=== PATIENT | male | born 1935 | race Caucasian/White ===

== ENCOUNTER 2018-09-05 08:23 | Emergency (ER) | payer OTHER ==
--- NOTE | 2018-09-05 08:35 | PDOC ---
History of Present Illness - General Chief Complaint: Urinary Problem Stated Complaint: URINARY SYMPTOMS Time Seen by Provider: 09/05/18 08:23 History Source: Patient, Care Provider Exam Limitations: No Limitations - History of Present Illness Initial Comments: 09/05/18 08:43 HPI 83 YOM with h/o CAD s/p CABG, BPH, Afib and antiphospholipid syndrome on Coumadin, HTN, HLD presenting with urinary sx, subjective chills and rigors, generalized weakness x 2 days. Beginning Monday night, he started to experience shakes and chills, nausea and body aches, at that time also developed dysuria, urgency and increased urinary frequency, where he needs to go to the bathroom every 2 seconds. Yesterday, developed low grade fever of 99. He has been taking ibuprofen 400mg every 4 hours for the past 2 days for pain. Denies chest pain, SOB, palpitation, dizziness, V, D, abdominal pain, leg swelling, rash, No sick contacts or travel. No new changes in medications. No suspicious food intake. No respiratory or GI symptoms. Allergies: NKA Past Medical History: CAD s/p CABG, BPH, Afib and antiphospholipid syndrome on Coumadin, HTN, HLD Social history: Lives with family. No smoking. occ alcohol. No illicit drugs. Surgical history: CABG, kidney tumor removal Meds: lisinopril, flomax, coumadin, statin PMD: Dr [facility], [facility] Review of systems Constitutional: +fever, chills and sweats, +generalized weakness HEENT: no headache or dizziness. No congestion. No sore throat, no difficulty swallowing. CVS: no cp or syncope. No palpitations Resp: no sob. No cough. Gastrointestinal: no abdominal pain, diarrhea or vomiting. +nausea Genitourinary: no hematuria. +urinary urgency, frequency and dysuria. MUSCULOSKELETAL: No joint pain and swelling. No neck or back pain. +myalgias. SKIN: no redness or skin changes, no discharge, no rash. No wounds. Hematologic: no easy bruising/bleeding. NEUROLOGIC: No headache, dizziness, LOC or altered mental status. No weakness, numbness or tingling. Psych: no anxiety or depression Allergic/Immunologic: no allergies All other systems reviewed and negative, or as documented in HPI. Physical exam: General: Well appearing, awake and alert, NAD. HEENT: NCAT, PERRL, EOMI, clear conjunctiva, anicteric, moist mucus membranes, clear oropharynx, no oral lesions.. Neck: neck supple, FROM Resp: CTAB, normal and even respirations, no respiratory distress CVS: irregularly irregular, no murmurs, 2+ peripheral pulses throughout, no peripheral edema Abdomen: soft, NTND, no peritoneal signs. No CVAT. Back: nontender, normal inspection and ROM MSK: no edema, COPELAND x4, ROM intact. No clubbing or cyanosis. normal bulk and tone. Neuro: alert, no focal neuro deficits. Skin: warm and well perfused, cap refill <2 sec, normal color, no rash, ecchymosis or purpura. Past History - Past Medical History Allergies/Adverse Reactions: Allergies Allergy/AdvReac Type Severity Reaction Status Date / Time No Known Allergies Allergy Verified 09/05/18 08:46 Home Medications: Ambulatory Orders Lisinopril [Prinivil] 10 mg PO HS 08/14/12 Simvastatin [Zocor] 40 mg PO HS 08/14/12 Warfarin Sodium [Coumadin] 7 mg PO HS 08/14/12 Cefpodoxime Proxetil [Vantin -] 100 mg PO BID #20 tablet 09/05/18 Tamsulosin HCl 0.4 mg PO DAILY 09/05/18 Anemia: No Asthma: No Cancer: Yes (kidney mass removed) Cardiac Disorders: Yes (CA bypassx4 2003) CVA: No COPD: No CHF: No Dementia: No Diabetes: No GI Disorders: No Disorders: Yes (BPH) HTN: Yes Hypercholesterolemia: Yes Liver Disease: No Seizures: No Thyroid Disease: No - Surgical History Abdominal Surgery: No Appendectomy: No Cardiac Surgery: Yes (CABG *4) Cholecystectomy: No Lung Surgery: No Neurologic Surgery: No Orthopedic Surgery: No - Suicide/Smoking/Psychosocial Hx Smoking Status: No Smoking History: Never smoked Number of Cigarettes Smoked Daily: 0 Hx Alcohol Use: Yes (SOCIALLY) Drug/Substance Use Hx: No Substance Use Type: None Hx Substance Use Treatment: No Heart Score/ECG Review #1 ECG reviewed & interpreted by me at: 08:35 General ECG Interpretation: Normal Rate, Normal Intervals Compared to previous ECG there are: Changes noted 09/05/18 08:44 EKG atrial fibrilliation at 89 bpm, no interval abnormalities, narrow QRS, ST and T wave segments and morphology normal. Nonspecific T wave abnormalities ED Treatment Course - LABORATORY CBC & Chemistry Diagram: 09/05/18 09:05 09/05/18 09:05 Medical Decision Making - Medical Decision Making 09/05/18 08:43 See HPI for details ddx. sepsis, dehydration, UTI, pyelo, pancreatitis, hepatitis, pneumonia, infection, electrolyte/metabolic derangements, bactermia, IRVING, medication side effect, nsaid nephropathy. Vital signs reviewed, +fever rectally at 100.3, Afib, irregular pulse rate from 80-120s, but EKG with Afib at 89 bpm Prior notes reviewed, including admissions, discharges and consultations. laboratory results and imaging reviewed, basic labs and lytes notable for significant leukocytosis of 20K, Cr elevated 1.9 likely from nsaid overuse vs dehydration vs sepsis lactic pending blood and urine cultures pending UA_leuk esterase and WBCs, toya with UTI as source of sepsis CXR_no acute chest pathology Cardiac panel_neg trop EKG atrial fibrilliation at 89 bpm, no interval abnormalities, narrow QRS, ST and T wave segments and morphology normal. Nonspecific T wave abnormalities prior EKG NSR, but pt states he has Afib. 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 - repeat VS improved, fever down - Given IV ceftriaxone x1 dose, - pt clinically feels better and improved, suggested admission for sepsis 2/2 UTI, febrile illness and IRVING - pt adamantly declined. repeat VS with soft BP, HR normal, fever improved; mentating, alert and oriented to person time and place and able to verbalize risks and indications, admission and wish to leave against medical advice. - will give oral abx in line with 3rd gen cephalosporin to cover for systemic infection and UTI as precipitant. no nsaids, to avoid IRVING. The patient has requested to leave the ED against medical advice. 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 The patient is responding and asking questions appropriately. The patient is oriented to person, place and time. The patient is not psychotic, delusional, suicidal, homicidal or hallucinating. The patient demonstrates a normal mental capacity to make decisions regarding their healthcare. The patient is clinically sober and does not appear to be under the influence of any illicit drugs at this time. The patient has been advised of the risks, in layman terms, of leaving AMA which include, but are not limited to cardiac arrest, severe infection/shock, blood stream infection, dehydration, bleeding, liver failure, acute renal failure, myocardial infarction, arrhythmia, stroke, respiratory failure, delay in diagnosis and management, loss of current lifestyle, loss of functional status, multiorgan failure, coma, severe disability and . Alternatives have been offered - the patient remains steadfast in their wish to leave. The patient has been advised that should they change their mind they are welcome to return to this hospital, or any other, at any time. The patient understands that in no way does an AMA discharge mean that I do not want them to have the best medical care available. To this end, I have provided appropriate prescriptions, referrals, and discharge instructions. The patient did sign AMA paperwork. The above discussion was witnessed by another member of staff, JAMIL Odonnell at bedside. Pt will be treated with Cefpodoxime BID x 10 days and close follow up with primary care doctor with reevaluation. Return precautions advised, call 911 immediately if severe life threatening symptoms or concerns.. Pt has verbalized understanding of information provided, questions answered. 09/05/18 08:45 09/05/18 10:43 09/05/18 10:45 09/05/18 10:54 09/05/18 10:56 09/05/18 11:05 09/05/18 11:08 *DC/Admit/Observation/Transfer Diagnosis at time of Disposition: IRVING (acute kidney injury) UTI (urinary tract infection) Qualifiers: Urinary tract infection type: site unspecified Hematuria presence: without hematuria Qualified Code(s): N39.0 - Urinary tract infection, site not specified Sepsis Qualifiers: Sepsis type: sepsis due to unspecified organism Qualified Code(s): A41.9 - Sepsis, unspecified organism Fever Qualifiers: Fever type: unspecified Qualified Code(s): R50.9 - Fever, unspecified - Discharge Dispostion Disposition: AGAINST MEDICAL ADVICE Condition at time of disposition: Stable - Prescriptions Prescriptions: Cefpodoxime Proxetil [Vantin -] 100 mg PO BID #20 tablet - Referrals Referrals: [facility] [Non Staff, Medical] - Mauri Webber MD [Staff Physician] - - Patient Instructions Printed Discharge Instructions: DI for Urinary Tract Infection (UTI), DI for Fever (Symptom) -- Adult, DI for Sepsis -- Adult Additional Instructions: You have requested to leave the ED against medical advice. 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 your blood counts were elevated with elevated white blood cell count of 20,000, you also had a temperature. you were given fluids and IV ceftriaxone and tylenol, with improvement You have been advised of the risks, in layman terms, of leaving Against Medical Advice, which include, but are not limited to cardiac arrest, severe infection/ shock, blood stream infection, dehydration, bleeding, liver failure, myocardial infarction, arrhythmia, stroke, respiratory failure, acute renal failure, delay in diagnosis and management, loss of current lifestyle, loss of functional status, multiorgan failure, coma, severe disability and . Alternatives have been offered - You have been advised that should they change their mind they are welcome to return to this hospital, or any other, at any time. The patient understands that in no way does an AMA discharge mean that I do not want them to have the best medical care available. To this end, I have provided appropriate prescriptions, referrals, and discharge instructions. The patient did sign AMA paperwork. The above discussion was witnessed by another member of staff, JAMIL Odonnell. If you have any worsening of symptoms or any other concerns please return to the ED immediately. Return if worsening symptoms including fevers, headache, vomiting, visual or hearing disturbances, abdominal pain, chest pain, shortness of breath, syncope, dehydration, inability to take things by mouth/vomiting, altered mental status, or worsening concerning symptoms. Please continue taking your home medications as directed. your medications on discharge include oral antibiotics called cefpodoxime twice a day x 10 day course . side effects may include upset stomach, abdominal pain, vomiting, or diarrhea. do not drink alcohol with your medications. Stay well hydrated and rest adequately. an appointment. If you cannot follow-up with your primary care doctor please return to the ED you can take tylenol every 6 hours, 650-975 mg for fever/pain avoid over use of anti inflammatories such as motrin, aleve or advil - this can affect your kidneys. you have some evidence of acute kidney injury from NSAID use. so avoid this please. - Post Discharge Activity
[2018-09-05] MEDS ORDERED: SODIUM CHLORIDE 0.9% 500 ML INFUS.BAG IV ONE ×2 (08:37)
[2018-09-05 08:46] VITALS: BMI 28.0
[2018-09-05] MEDS ORDERED: ACETAMINOPHEN 1000 MG/100 ML VIAL (NON FORMULARY) IVPB ONE (09:28)
[2018-09-05 09:31] LABS: HEMATOCRIT 36.3 % (35.4-49); HEMOGLOBIN 12.3 GM/dl (11.7-16.9); MCH 31.2 pg (25.7-33.7); MCHC 33.8 g/dl (32.0-35.9); MEAN CELL VOLUME 92.2 fl (80-96); MEAN PLT VOLUME 10.1 fl (7.5-11.1); PLATELET COUNT 110 K/MM3 (134-434); RBC 3.94 M/mm3 (4.00-5.60); RDW 13.5 % (11.9-15.9); WHITE BLOOD COUNT 20.4 K/mm3 (4.0-10.8)
[2018-09-05 09:33] LABS: ALBUMIN 3.6 g/dl (3.4-5.0); ALK PHOS 112 U/L (45-117); ANION GAP 8 MMOL/L (8-16); BILIRUBIN,TOTAL 1.9 mg/dl (0.2-1); BLOOD UREA NITROGEN 34 mg/dl (7-18); CHLORIDE 102 mmol/L (98-107); CO2 24 mmol/L (21-32); CREATININE 1.9 mg/dl (0.55-1.3); GLUCOSE,RANDOM 106 mg/dl (74-106); POTASSIUM 4.7 mmol/L (3.5-5.1); SGOT/AST 21 U/L (15-37); SGPT/ALT 23 U/L (13-61); SODIUM 134 mmol/L (136-145); TOT PROT 6.5 g/dl (6.4-8.2)
[2018-09-05] MEDS ORDERED: CEFTRIAXONE 1,000 MG in DEXTROSE 5%-WATER - 50 ML IVPB ONE (09:34)
[2018-09-05] MEDS ORDERED: cefTRIAXone SODIUM 1 GM VIAL ONE (09:37)
[2018-09-05] MEDS ORDERED: ACETAMINOPHEN INJECTION 100 ML IVPB ONE (09:37)
[2018-09-05 09:39] LABS: ACTIVATED PTT 38.9 SECONDS (25.2-36.5)
[2018-09-05 09:43] LABS: INR 2.24 (0.82-1.09); PROTHROMBIN TIME (PATIENT) 24.7 SEC (10.2-13.0)
[2018-09-05 10:46] VITALS: BP 99/57; PULSE 69; TEMP 98.5
[2018-09-05 12:14] LABS: PLATELET ESTIMATE ADEQUATE
--- NOTE | 2018-09-05 12:30 | EKG ---
Test Reason : Blood Pressure : / mmHG Vent. Rate : 089 BPM Atrial Rate : 108 BPM P-R Int : 000 ms QRS Dur : 100 ms QT Int : 352 ms P-R-T Axes : 000 072 -54 degrees QTc Int : 428 ms ATRIAL FIBRILLATION NONSPECIFIC T WAVE ABNORMALITY ABNORMAL ECG NO PREVIOUS ECGS AVAILABLE Confirmed by FELICIA MOYA, KATE ([id number]) on 09/05/2018 12:29:52 PM Referred By: BIENVENIDO LOPEZ Confirmed By:KATE DUARTE MD
[2018-09-05 14:08] LABS: EPITHELIAL CELLS 1+ /hpf
== END 2018-09-05 11:29 | disposition left against medical advice (07) ==
LOC: FER 08:23
PROC: 3E0337Z Introduction of Electrolytic and Water Balance Substance into Peripheral Vein, Percutaneous Approach (ICD-10-PCS; principal; 2018-09-05)
PROC: 3E033NZ Introduction of Analgesics, Hypnotics, Sedatives into Peripheral Vein, Percutaneous Approach (ICD-10-PCS; 2018-09-05)
PROC: 3E03329 Introduction of Other Anti-infective into Peripheral Vein, Percutaneous Approach (ICD-10-PCS; 2018-09-05)
DX: N17.9 Acute kidney failure, unspecified (principal); N39.0 Urinary tract infection, site not specified; A41.9 Sepsis, unspecified organism; R50.9 Fever, unspecified
CPT/HCPCS: 36415; 71045-TC-FY; 80053; 81003; 81015; 83605; 84484; 85025; 85610; 85730; 87040; 87086; 87186; 93005; 96365; 96375; 99283-25; J0131

== ENCOUNTER 2018-09-14 15:10 | Inpatient (IN) | payer OTHER ==
[2018-09-14] MEDS ORDERED: SODIUM CHLORIDE 0.9% 1000 ML INFUS.BAG IV ONE (15:19)
[2018-09-14] MEDS ORDERED: ACETAMINOPHEN 1000 MG/100 ML VIAL (NON FORMULARY) IVPB ONE (15:19)
[2018-09-14] MEDS ORDERED: ACETAMINOPHEN INJECTION 100 ML IVPB ONE (15:40)
[2018-09-14 15:57] LABS: BASO % 0.2 % (0-2.0); EOS % 0.3 % (0-4.5); HEMATOCRIT 34.6 % (35.4-49); HEMOGLOBIN 11.4 GM/dl (11.7-16.9); MCH 30.4 pg (25.7-33.7); MEAN CELL VOLUME 92.1 fl (80-96); MEAN PLT VOLUME 8.6 fl (7.5-11.1); NEUT % 87.5 % (42.8-82.8); PLATELET COUNT 233 K/MM3 (134-434); RBC 3.76 M/mm3 (4.00-5.60); RDW 14.1 % (11.9-15.9); WHITE BLOOD COUNT 13.9 K/mm3 (4.0-10.8)
[2018-09-14 16:12] LABS: ACTIVATED PTT 54.6 SECONDS (25.2-36.5); PROTHROMBIN TIME (PATIENT) 54.4 SEC (10.2-13.0)
[2018-09-14 16:15] LABS: INR 5.01 (0.82-1.09)
[2018-09-14] MEDS ORDERED: ERYTHROMYCIN 0.5% OPHTHALMIC OINTMENT 3.5 GM TUBE OD ONE (16:21)
[2018-09-14 16:33] LABS: ALBUMIN 3.4 g/dl (3.4-5.0); ALK PHOS 204 U/L (45-117); ANION GAP 5 MMOL/L (8-16); BILIRUBIN,TOTAL 0.9 mg/dl (0.2-1); BLOOD UREA NITROGEN 15 mg/dl (7-18); CALCIUM 9.2 mg/dl (8.5-10); CHLORIDE 107 mmol/L (98-107); CO2 24 mmol/L (21-32); GLUCOSE,RANDOM 90 mg/dl (74-106); POTASSIUM 4.2 mmol/L (3.5-5.1); SGOT/AST 23 U/L (15-37); SGPT/ALT 35 U/L (13-61); SODIUM 136 mmol/L (136-145); TOT PROT 6.8 g/dl (6.4-8.2)
--- NOTE | 2018-09-14 16:58 | PDOC ---
Documentation entered by Kahlil Angel SCRIBE, acting as scribe for Yaya Alonzo MD. Yaya Alonzo MD: This documentation has been prepared by the Jeanne rojas Nirvannie, SCRIBE, under my direction and personally reviewed by me in its entirety. I confirm that the documentation accurately reflects all work, treatment, procedures, and medical decision making performed by me. History of Present Illness - General Chief Complaint: Pain, Acute Stated Complaint: ABD PAIN History Source: Patient Exam Limitations: No Limitations - History of Present Illness Initial Comments: 09/14/18 16:45 CC: Fever, chills HPI: The patient is a 83 year old male, with a significant past medical history of CAD s/p CABG, BPH, Afib and antiphospholipid syndrome on Coumadin, HTN, HLD, who presents to the emergency department with, fevers (Tmax 102.9F), chills, and band-like periumbilical abdominal pain with left CVA pain. As per patient, he experienced similar symptoms approximately 10 days ago (09/05) at which time he was evaluated in the ER but, signed out AMA on PO Cefpodoxime BID x 10 days after one dosage of IV antibiotics and IV fluids secondary to prior obligations. He notes his symptoms began to subside (last dosage of antibiotics today) but, his symptoms returned once again, prompting his arrival to the ED. He denies He denies any recent headache or dizziness. He denies any recent nausea, vomit, diarrhea or constipation. He denies any recent chest pain or shortness of breath. He denies any recent hematuria. Allergies: NKDA Past surgical history: CABG Social History: Former smoker. Social alcohol usage. Primary Care Physician: Dr. Raudel [facility] Past History - Past Medical History Allergies/Adverse Reactions: Allergies Allergy/AdvReac Type Severity Reaction Status Date / Time No Known Allergies Allergy Verified 09/14/18 15:11 Home Medications: Ambulatory Orders Lisinopril [Prinivil] 10 mg PO HS 08/14/12 Simvastatin [Zocor] 40 mg PO HS 08/14/12 Warfarin Sodium [Coumadin] 7 mg PO HS 08/14/12 Cefpodoxime Proxetil [Vantin -] 100 mg PO BID #20 tablet 09/05/18 Tamsulosin HCl 0.4 mg PO DAILY 09/05/18 Anemia: No Asthma: No Cancer: Yes (kidney mass removed) Cardiac Disorders: Yes (CA bypassx4 2003) CVA: No COPD: No CHF: No Dementia: No Diabetes: No GI Disorders: No Disorders: Yes (BPH) HTN: Yes Hypercholesterolemia: Yes Liver Disease: No Seizures: No Thyroid Disease: No - Surgical History Abdominal Surgery: No Appendectomy: No Cardiac Surgery: Yes (CABG *4) Cholecystectomy: No Lung Surgery: No Neurologic Surgery: No Orthopedic Surgery: No - Suicide/Smoking/Psychosocial Hx Smoking Status: No Smoking History: Never smoked Have you smoked in the past 12 months: No Number of Cigarettes Smoked Daily: 0 If you are a former smoker, when did you quit?: 2002 Hx Alcohol Use: Yes (SOCIALLY) Drug/Substance Use Hx: No Substance Use Type: None Hx Substance Use Treatment: No Review of Systems - Review of Systems Able to Perform ROS?: Yes Comments:: 09/14/18 16:45 ROS: A complete review of 10 out of 10 review of systems is taken and is negative apart from what is previously mentioned below and in the HPI. *Physical Exam - Vital Signs Last Vital Signs Temp Pulse Resp BP Pulse Ox 101.5 F H 90 18 153/85 94 L 09/14/18 15:10 09/14/18 15:10 09/14/18 15:10 09/14/18 15:10 09/14/18 15:10 - Physical Exam Comments: 09/14/18 16:45 Exam: Vitals: Triage Vital signs reviewed General Appearance: no acute distress, well nourished well developed, Head: Atraumatic, normocephalic Nose: No nasal congestion Neck: Supple;No Nuchal rigidity Chest Wall: Nontender Cardiac: Regular rate and rhythm, no murmurs, no rubs, no gallops, Lungs: Clear to auscultation bilateral, good air movement bilaterally, Abdomen: +Periumbilical abdominal pain to deep palpation. +L CVA tenderness. Soft, nondistended, normal bowel sounds Rectal: Exam deferred Extremities: Full range of motion to all extremities, no cyanosis, clubbing, or edema Skin: Warm and dry, no rashes or lesions, no petechiae Neuro: AOX3; Cranial Nerves 2-12 grossly intact, Strength intact to all extremities, Sensation intact to all extremities Psych: normal mood, normal affect Heart Score/ECG Review - ECG Impressions Comment:: 09/14/18 18:22 EKG performed at 1549 demonstrates A. fib [address] elevations isolated T- wave inversion in lead 3. Incomplete right bundle-branch block. ED Treatment Course - LABORATORY CBC & Chemistry Diagram: 09/14/18 15:26 09/14/18 15:26 - ADDITIONAL ORDERS Additional order review: Laboratory Results 09/14/18 09/14/18 15:26 15:19 PT with INR 54.4 H INR 5.01 H* D PTT (Actin FS) 54.6 H D Urine Color Yellow Urine Appearance Clear Urine pH 7.0 D Urine Protein Trace Urine Glucose (UA) Negative Urine Ketones Negative Urine Blood Negative Urine Nitrite Negative Urine Bilirubin Negative Urine Urobilinogen 0.2 Ur Leukocyte Esterase Negative 09/14/18 15:26 RBC 3.76 L MCV 92.1 MCHC 33.0 RDW 14.1 MPV 8.6 D Neutrophils % 87.5 H D Lymphocytes % 8.0 D Monocytes % 4.0 Eosinophils % 0.3 D Basophils % 0.2 - RADIOLOGY Radiology Studies Ordered: Category Date Time Status ABDOMEN & PELVIS CT W/O CONTR [CT] Stat CT Scan 09/14/18 16:12 Taken CHEST X-RAY PORTABLE* [RAD] Stat Radiology 09/14/18 15:19 Taken - Medications Given in the ED: ED Medications Discontinued Medications Generic Name Dose Route Start Last Admin Trade Name Freq PRN Reason Stop Dose Admin Acetaminophen 1,000 mg 09/14/18 15:19 09/14/18 15:45 Ofirmev Injection - IVPB 09/14/18 15:20 1,000 mg ONCE ONE Administration Sodium Chloride 1,000 ml 09/14/18 15:19 09/14/18 15:45 Normal Saline - IV 09/14/18 15:20 1,000 ml ONCE ONE Administration Medical Decision Making - Medical Decision Making 09/14/18 16:46 83 year old male, with a significant past medical history of CAD s/p CABG, BPH, Afib and antiphospholipid syndrome on Coumadin, HTN, HLD, who presents to the emergency department with, fevers (Tmax 102.9F), chills, and abdominal pain. Plan is to: Sepsis Protocol: EKG Blood/Urine Cultures UA CBC CMP Cardiac Enzymes Lactic Acid Coags VBG Cardiac monitoring Vitals Tylenol IV Fluids Chest X-ray Reassess 09/14/18 17:17 Chest x-ray with likely early right-sided pneumonia Given recently failed outpatient anabiotic's we'll admit for IV antibiotics further management and further evaluation of fever. *DC/Admit/Observation/Transfer Diagnosis at time of Disposition: Pneumonia Qualifiers: Pneumonia type: due to unspecified organism Laterality: right Lung location: lower lobe of lung Qualified Code(s): J18.1 - Lobar pneumonia, unspecified organism - Discharge Dispostion Condition at time of disposition: Stable Decision to Admit order: Yes - Referrals - Patient Instructions - Post Discharge Activity
[2018-09-14] MEDS ORDERED: PIPERACILLIN/TAZOB 3.375 GM 3.375 GM in DEXTROSE 5%-WATER - 50 ML IVPB ONE (17:12)
[2018-09-14] MEDS ORDERED: PIPERACILLIN/TAZOBACTAM 3.375 GM VIAL IVPB ONE (17:14)
[2018-09-14 17:56] LABS: VENOUS PC02 34.2 mmHg (41-51); VENOUS PH 7.46 (7.31-7.41); VENOUS PO2 70.5 mmHg (30-40)
[2018-09-14 18:32] VITALS: BMI 27.3
--- NOTE | 2018-09-14 21:48 | HP ---
CHIEF COMPLAINT: chills, fever, periumbilical pain PCP: Dr. Raudel Slade HISTORY OF PRESENT ILLNESS: 83 year old male who completed PO Cefpodoxime BID x 10 days 2 days ago for UTI, returned from [place] from conference 2 days ago, c/o 1 day of fevers, chills, and periumbilical pain. Patient denied any nausea, vomiting, recent sick contacts. ER course was notable for: (1) zosyn (2) abdomen/pelvis ct (3) cxr Recent Travel: [place] last week PAST MEDICAL HISTORY: CAD s/p CABG, BPH, Afib and antiphospholipid syndrome on Coumadin, HTN, HLD PAST SURGICAL HISTORY: CABG Social History: Smoking: Former smoker- quit 2003 Alcohol: social Drugs: no Family History: no Allergies No Known Allergies Allergy (Verified 09/14/18 15:11) HOME MEDICATIONS: Home Medications Medication Instructions Recorded Lisinopril [Prinivil] 10 mg PO HS 08/14/12 Simvastatin [Zocor] 40 mg PO HS 08/14/12 Warfarin Sodium [Coumadin] 7 mg PO HS 08/14/12 Cefpodoxime Proxetil [Vantin -] 100 mg PO BID #20 tablet 09/05/18 Tamsulosin HCl 0.4 mg PO DAILY 09/05/18 REVIEW OF SYSTEMS CONSTITUTIONAL: Absent: diaphoresis, generalized weakness, malaise, loss of appetite, weight change present- fever, chills, HEENT: Absent: rhinorrhea, nasal congestion, throat pain, throat swelling, difficulty swallowing, mouth swelling, ear pain, eye pain, visual changes CARDIOVASCULAR: Absent: chest pain, syncope, palpitations, irregular heart rate, lightheadedness , peripheral edema RESPIRATORY: Absent: cough, shortness of breath, dyspnea with exertion, orthopnea, wheezing, stridor, hemoptysis GASTROINTESTINAL: Absent: abdominal distension, nausea, vomiting, diarrhea, constipation, melena , hematochezia present- abdominal pain GENITOURINARY: Absent: dysuria, frequency, urgency, hesitancy, hematuria, flank pain, genital pain MUSCULOSKELETAL: Absent: myalgia, arthralgia, joint swelling, back pain, neck pain SKIN: Absent: rash, itching, pallor HEMATOLOGIC/IMMUNOLOGIC: Absent: easy bleeding, easy bruising, lymphadenopathy, frequent infections ENDOCRINE: Absent: unexplained weight gain, unexplained weight loss, heat intolerance, cold intolerance NEUROLOGIC: Absent: headache, focal weakness or paresthesias, dizziness, unsteady gait, seizure, mental status changes, bladder or bowel incontinence PSYCHIATRIC: Absent: anxiety, depression, suicidal or homicidal ideation, hallucinations. PHYSICAL EXAMINATION Vital Signs - 24 hr 09/14/18 09/14/18 09/14/18 15:10 15:19 16:43 Temperature 101.5 F H 99.3 F Pulse Rate 90 Pulse Rate [ 77 Apical] Respiratory 18 19 Rate Blood Pressure 153/85 Blood Pressure 127/53 L [Right Arm] O2 Sat by Pulse 94 L 94 L 96 Oximetry (%) 09/14/18 09/14/18 17:13 18:15 Temperature 98.7 F Pulse Rate 67 Pulse Rate [ 78 Apical] Respiratory 18 18 Rate Blood Pressure 129/69 Blood Pressure 118/70 [Right Arm] O2 Sat by Pulse 98 Oximetry (%) GENERAL: Awake, alert, and fully oriented, in no acute distress. HEAD: Normal with no signs of trauma. EYES: Pupils equal, round and reactive to light, extraocular movements intact, sclera anicteric, conjunctiva clear. No lid lag. EARS, NOSE, THROAT: Ears normal, nares patent, oropharynx clear without exudates. Moist mucous membranes. NECK: Normal range of motion, supple without lymphadenopathy, JVD, or masses. LUNGS: Breath sounds equal, clear to auscultation bilaterally. No wheezes, and no crackles. No accessory muscle use. HEART: Regular rate and rhythm, normal S1 and S2 without murmur, rub or gallop. ABDOMEN: Soft, nontender, not distended, normoactive bowel sounds, no guarding, no rebound, no masses. No hepatomegaly or splenomegaly. MUSCULOSKELETAL: Normal range of motion at all joints. No bony deformities or tenderness. No CVA tenderness. UPPER EXTREMITIES: 2+ pulses, warm, well-perfused. No cyanosis. No clubbing. No peripheral edema. LOWER EXTREMITIES: 2+ pulses, warm, well-perfused. No calf tenderness. No peripheral edema. NEUROLOGICAL: Cranial nerves II-XII intact. Normal speech. Normal gait. PSYCHIATRIC: Cooperative. Good eye contact. Appropriate mood and affect. SKIN: Warm, dry, normal turgor, no rashes or lesions noted, normal capillary refill. Laboratory Results - last 24 hr 04/09/14/18 09/14/18 15:19 15:19 15:26 WBC 13.9 H RBC 3.76 L Hgb 11.4 L Hct 34.6 L MCV 92.1 MCH 30.4 MCHC 33.0 RDW 14.1 Plt Count 233 D MPV 8.6 D Absolute Neuts (auto) 12.2 Neutrophils % 87.5 H D Lymphocytes % 8.0 D Monocytes % 4.0 Eosinophils % 0.3 D Basophils % 0.2 PT with INR INR PTT (Actin FS) VBG pH POC VBG pCO2 POC VBG pO2 VBG HCO3 VBG O2 Sat (Isabell) VBG Base Excess Sodium Potassium Chloride Carbon Dioxide Anion Gap BUN Creatinine Creat Clearance w eGFR Random Glucose Lactic Acid Calcium Total Bilirubin AST ALT Alkaline Phosphatase Troponin I 0.03 Total Protein Albumin Urine Color Yellow Urine Appearance Clear Urine pH 7.0 D Urine Protein Trace Urine Glucose (UA) Negative Urine Ketones Negative Urine Blood Negative Urine Nitrite Negative Urine Bilirubin Negative Urine Urobilinogen 0.2 Ur Leukocyte Esterase Negative Influenza A (Rapid) Influenza B (Rapid) 09/14/18 09/14/18 09/14/18 15:26 15:26 15:26 WBC RBC Hgb Hct MCV MCH MCHC RDW Plt Count MPV Absolute Neuts (auto) Neutrophils % Lymphocytes % Monocytes % Eosinophils % Basophils % PT with INR 54.4 H INR 5.01 H* D PTT (Actin FS) 54.6 H D VBG pH 7.46 H POC VBG pCO2 34.2 L POC VBG pO2 70.5 H VBG HCO3 23.8 VBG O2 Sat (Isabell) 95.2 H VBG Base Excess 0.7 Sodium 136 Potassium 4.2 Chloride 107 Carbon Dioxide 24 Anion Gap 5 L BUN 15 Creatinine 1.0 Creat Clearance w eGFR 71.36 Random Glucose 90 Lactic Acid Calcium 9.2 Total Bilirubin 0.9 AST 23 ALT 35 Alkaline Phosphatase 204 H D Troponin I Total Protein 6.8 Albumin 3.4 Urine Color Urine Appearance Urine pH Urine Protein Urine Glucose (UA) Urine Ketones Urine Blood Urine Nitrite Urine Bilirubin Urine Urobilinogen Ur Leukocyte Esterase Influenza A (Rapid) Influenza B (Rapid) 09/14/18 09/14/18 15:26 16:47 WBC RBC Hgb Hct MCV MCH MCHC RDW Plt Count MPV Absolute Neuts (auto) Neutrophils % Lymphocytes % Monocytes % Eosinophils % Basophils % PT with INR INR PTT (Actin FS) VBG pH POC VBG pCO2 POC VBG pO2 VBG HCO3 VBG O2 Sat (Isabell) VBG Base Excess Sodium Potassium Chloride Carbon Dioxide Anion Gap BUN Creatinine Creat Clearance w eGFR Random Glucose Lactic Acid 1.0 Calcium Total Bilirubin AST ALT Alkaline Phosphatase Troponin I Total Protein Albumin Urine Color Urine Appearance Urine pH Urine Protein Urine Glucose (UA) Urine Ketones Urine Blood Urine Nitrite Urine Bilirubin Urine Urobilinogen Ur Leukocyte Esterase Influenza A (Rapid) Negative Influenza B (Rapid) Negative Imaging studies reviewed ASSESSMENT/PLAN: #SIRS- fever, borderline tachycardia, +leukocytosis, may be secondary to viral infections- viral gastroenteritis given abdominal pain? Was negative for influenza. Do not suspect pneumonia or UTI due to lack of clinical evidence. UA wnl. Lactate wnl. -observation -monitor off antibiotics -tylenol po prn if fever -blood culture- f/u #Afib/antiphospholipid syndrome on coumadin- INR suprathertapeutic, no signs of bleed -monitor -hold coumadin for now -repeat INR in am #HTN -controlled -lisinopril 10mg po home dose #BPH -tamsulosin #LEft kidney upper pole cyst - pt says he follows up with urologist -renal u/s #DVT ppx -on coumadin Visit type - Emergency Visit Emergency Visit: Yes ED Registration Date: 09/14/18 Care time: The patient presented to the Emergency Department on the above date and was hospitalized for further evaluation of their emergent condition. - New Patient This patient is new to me today: Yes Date on this admission: 09/15/18 - Critical Care Critical Care patient: No
[2018-09-14] MEDS ORDERED: WARFARIN SODIUM 7 MG PO SCH (22:00)
[2018-09-14] MEDS: HEPARIN NA (PORCINE) 5,000 UNITS/ML 1ML VIAL SQ SCH (22:21)
[2018-09-14] MEDS: ATORVASTATIN CA 20 MG TABLET (FP) PO SCH (22:21)
[2018-09-14] MEDS: LISINOPRIL 10 MG TABLET (FP) PO SCH (22:21)
[2018-09-15] MEDS: ACETAMINOPHEN 325 MG TABLET (FP) PO PRN ×3 (01:29→18:07)
[2018-09-15 08:26] LABS: HEMATOCRIT 33.5 % (35.4-49); HEMOGLOBIN 11.2 GM/dl (11.7-16.9); MCH 30.7 pg (25.7-33.7); MCHC 33.5 g/dl (32.0-35.9); MEAN CELL VOLUME 91.6 fl (80-96); MEAN PLT VOLUME 8.8 fl (7.5-11.1); PLATELET COUNT 203 K/MM3 (134-434); RBC 3.65 M/mm3 (4.00-5.60); WHITE BLOOD COUNT 15.2 K/mm3 (4.0-10.8)
[2018-09-15 08:49] LABS: ANION GAP 6 MMOL/L (8-16); BLOOD UREA NITROGEN 14 mg/dl (7-18); CALCIUM 8.9 mg/dl (8.5-10); CHLORIDE 106 mmol/L (98-107); CO2 25 mmol/L (21-32); GLUCOSE,RANDOM 88 mg/dl (74-106); POTASSIUM 4.3 mmol/L (3.5-5.1); SODIUM 137 mmol/L (136-145)
[2018-09-15 08:53] LABS: PROTHROMBIN TIME (PATIENT) 52.6 SEC (10.2-13.0)
[2018-09-15 09:01] LABS: INR 4.84 (0.82-1.09)
[2018-09-15] MEDS: TAMSULOSIN HCL 0.4 MG CAP PO SCH (09:28)
--- NOTE | 2018-09-15 11:51 | PN ---
Physical Exam: SUBJECTIVE: Patient seen and examined, pt reports feeling weak, lower abd pain has gone down to 2/10. tolerating breakfast, when having BM, more gas, small amount of stool, denies n/v, WBC this morning 15.2, afebrile INR this morning supratherapuetic 4.8 H&P reviewed, completed coarse of oral abt, OBJECTIVE: Vital Signs Period Temp Pulse Resp BP Sys/Bragg Pulse Ox Last 24 Hr 98.6 F-101.5 F 43-90 18-19 103-153/49-85 93-98 GENERAL: The patient is awake, alert, and fully oriented, in no acute distress. HEAD: Normal with no signs of trauma. EYES: PERRL, extraocular movements intact, sclera anicteric, conjunctiva clear. No ptosis. ENT: Ears normal, nares patent, oropharynx clear without exudates, moist mucous membranes. NECK: Trachea midline, full range of motion, supple. LUNGS: Breath sounds equal, clear to auscultation bilaterally, no wheezes, no crackles, no accessory muscle use. HEART: Regular rate and rhythm, S1, S2 without murmur, rub or gallop. ABDOMEN: Soft, nontender, nondistended, normoactive bowel sounds, no guarding, no rebound, no hepatosplenomegaly, no masses. EXTREMITIES: 2+ pulses, warm, well-perfused, no edema. NEUROLOGICAL: Cranial nerves II through XII grossly intact. Normal speech, gait not observed. PSYCH: Normal mood, normal affect. SKIN: Warm, dry, normal turgor, no rashes or lesions noted Laboratory Results - last 24 hr 09/14/18 09/14/18 09/14/18 15:19 15:19 15:26 WBC 13.9 H RBC 3.76 L Hgb 11.4 L Hct 34.6 L MCV 92.1 MCH 30.4 MCHC 33.0 RDW 14.1 Plt Count 233 D MPV 8.6 D Absolute Neuts (auto) 12.2 Neutrophils % 87.5 H D Lymphocytes % 8.0 D Monocytes % 4.0 Eosinophils % 0.3 D Basophils % 0.2 PT with INR INR PTT (Actin FS) VBG pH POC VBG pCO2 POC VBG pO2 VBG HCO3 VBG O2 Sat (Isabell) VBG Base Excess Sodium Potassium Chloride Carbon Dioxide Anion Gap BUN Creatinine Creat Clearance w eGFR Random Glucose Lactic Acid Calcium Total Bilirubin AST ALT Alkaline Phosphatase Troponin I 0.03 Total Protein Albumin Urine Color Yellow Urine Appearance Clear Urine pH 7.0 D Urine Protein Trace Urine Glucose (UA) Negative Urine Ketones Negative Urine Blood Negative Urine Nitrite Negative Urine Bilirubin Negative Urine Urobilinogen 0.2 Ur Leukocyte Esterase Negative Influenza A (Rapid) Influenza B (Rapid) 09/14/18 09/14/18 09/14/18 15:26 15:26 15:26 WBC RBC Hgb Hct MCV MCH MCHC RDW Plt Count MPV Absolute Neuts (auto) Neutrophils % Lymphocytes % Monocytes % Eosinophils % Basophils % PT with INR 54.4 H INR 5.01 H* D PTT (Actin FS) 54.6 H D VBG pH 7.46 H POC VBG pCO2 34.2 L POC VBG pO2 70.5 H VBG HCO3 23.8 VBG O2 Sat (Isabell) 95.2 H VBG Base Excess 0.7 Sodium 136 Potassium 4.2 Chloride 107 Carbon Dioxide 24 Anion Gap 5 L BUN 15 Creatinine 1.0 Creat Clearance w eGFR 71.36 Random Glucose 90 Lactic Acid Calcium 9.2 Total Bilirubin 0.9 AST 23 ALT 35 Alkaline Phosphatase 204 H D Troponin I Total Protein 6.8 Albumin 3.4 Urine Color Urine Appearance Urine pH Urine Protein Urine Glucose (UA) Urine Ketones Urine Blood Urine Nitrite Urine Bilirubin Urine Urobilinogen Ur Leukocyte Esterase Influenza A (Rapid) Influenza B (Rapid) 09/14/18 09/14/18 09/15/18 15:26 16:47 07:45 WBC 15.2 H RBC 3.65 L Hgb 11.2 L Hct 33.5 L MCV 91.6 MCH 30.7 MCHC 33.5 RDW 14.0 Plt Count 203 MPV 8.8 Absolute Neuts (auto) Neutrophils % Lymphocytes % Monocytes % Eosinophils % Basophils % PT with INR INR PTT (Actin FS) VBG pH POC VBG pCO2 POC VBG pO2 VBG HCO3 VBG O2 Sat (Isabell) VBG Base Excess Sodium Potassium Chloride Carbon Dioxide Anion Gap BUN Creatinine Creat Clearance w eGFR Random Glucose Lactic Acid 1.0 Calcium Total Bilirubin AST ALT Alkaline Phosphatase Troponin I Total Protein Albumin Urine Color Urine Appearance Urine pH Urine Protein Urine Glucose (UA) Urine Ketones Urine Blood Urine Nitrite Urine Bilirubin Urine Urobilinogen Ur Leukocyte Esterase Influenza A (Rapid) Negative Influenza B (Rapid) Negative 09/15/18 09/15/18 07:45 07:45 WBC RBC Hgb Hct MCV MCH MCHC RDW Plt Count MPV Absolute Neuts (auto) Neutrophils % Lymphocytes % Monocytes % Eosinophils % Basophils % PT with INR 52.6 H INR 4.84 H* PTT (Actin FS) VBG pH POC VBG pCO2 POC VBG pO2 VBG HCO3 VBG O2 Sat (Isabell) VBG Base Excess Sodium 137 Potassium 4.3 Chloride 106 Carbon Dioxide 25 Anion Gap 6 L BUN 14 Creatinine 1.0 Creat Clearance w eGFR 71.36 Random Glucose 88 Lactic Acid Calcium 8.9 Total Bilirubin AST ALT Alkaline Phosphatase Troponin I Total Protein Albumin Urine Color Urine Appearance Urine pH Urine Protein Urine Glucose (UA) Urine Ketones Urine Blood Urine Nitrite Urine Bilirubin Urine Urobilinogen Ur Leukocyte Esterase Influenza A (Rapid) Influenza B (Rapid) Active Medications Generic Name Dose Route Start Last Admin Trade Name Freq PRN Reason Stop Dose Admin Acetaminophen 650 mg 09/14/18 22:00 09/15/18 09:28 Tylenol - PO 650 mg Q6H PRN Administration FEVER Atorvastatin Calcium 20 mg 09/14/18 22:00 09/14/18 22:21 Lipitor - PO 20 mg HS IRINEO Administration Lisinopril 10 mg 09/14/18 22:15 09/14/18 22:21 Prinivil PO 10 mg HS IRINEO Administration Tamsulosin HCl 0.4 mg 09/15/18 08:30 09/15/18 09:28 Flomax - PO 0.4 mg DAILY@0830 IRINEO Administration ASSESSMENT/PLAN: Gus Bravo is a 83 yr old M, medical condition BPH, CAD s/p CABG, Afib and antiphospholipid syndrome on Coumadin, HTN, HLD, admitted under observation for #SIRS-viral gastroenteritis? -afebrile this AM -received 1 dose of zosyn -UA wnl, lactate wnl -blood, urine cx pending -CT abd/pelvis-no evidence of hydronephrosis, -renal US- b/l cysts -tylenol po prn if fever -blood culture- f/u #Afib/antiphospholipid syndrome - INR supratherapuetic -hold coumadin -check INR daily #HTN -controlled -lisinopril 10mg po home dose #BPH -tamsulosin #Left kidney upper pole cyst - pt says he follows up with urologist -renal u/s b/l renal cysts #DVT ppx -on coumadin Visit type - Emergency Visit Emergency Visit: Yes ED Registration Date: 09/14/18 Care time: The patient presented to the Emergency Department on the above date and was hospitalized for further evaluation of their emergent condition. - New Patient This patient is new to me today: Yes Date on this admission: 09/15/18 - Critical Care Critical Care patient: No
[2018-09-15] MEDS ORDERED: PIPERACILLIN/TAZOB 3.375 GM 3.375 GM in DEXTROSE 5%-WATER - 50 ML IVPB ONE (13:22)
[2018-09-15] MEDS ORDERED: CIPROFLOXACIN 400 MG/D5W 400 MG/200 ML IVPB IVPB ONE (13:27)
--- NOTE | 2018-09-15 14:28 | EKG ---
Test Reason : Blood Pressure : / mmHG Vent. Rate : 097 BPM Atrial Rate : 101 BPM P-R Int : 000 ms QRS Dur : 092 ms QT Int : 370 ms P-R-T Axes : 000 073 003 degrees QTc Int : 469 ms ATRIAL FIBRILLATION WITH PREMATURE VENTRICULAR OR ABERRANTLY CONDUCTED COMPLEXES NONSPECIFIC T WAVE ABNORMALITY PROLONGED QT ABNORMAL ECG WHEN COMPARED WITH ECG OF 05-SEP-2018 08:36, NO SIGNIFICANT CHANGE WAS FOUND Confirmed by MD SUSAN, JOAO ([id number]) on 09/15/2018 2:27:49 PM Referred By: DR WONG Confirmed By:JOAO DAVIS MD
[2018-09-15] MEDS ORDERED: PIPERACILLIN/TAZOBACTAM 3.375 GM VIAL IVPB ONE (15:34)
[2018-09-15] MEDS ORDERED: DEXTROSE 5%-WATER - 50 ML IVPB ONE (15:34)
[2018-09-15] MEDS: HEPARIN NA (PORCINE) 5,000 UNITS/ML 1ML VIAL SQ SCH (18:50)
[2018-09-15] MEDS ORDERED: MAG HYDROX/AL HYDROX/SIMETH -MYLANTA- ORAL SUSPENSION PO PRN (19:49)
[2018-09-15] MEDS: MAG HYDROX/AL HYDROX/SIMETH 30 ML UNIT-DOSE CUP PO PRN (20:16)
[2018-09-15] MEDS: ATORVASTATIN CA 20 MG TABLET (FP) PO SCH (21:07)
[2018-09-15] MEDS: LISINOPRIL 10 MG TABLET (FP) PO SCH (21:07)
[2018-09-16] MEDS: MAG HYDROX/AL HYDROX/SIMETH 30 ML UNIT-DOSE CUP PO PRN ×2 (06:11→19:36)
[2018-09-16 09:28] LABS: HEMATOCRIT 33.3 % (35.4-49); HEMOGLOBIN 11.1 GM/dl (11.7-16.9); MCH 30.5 pg (25.7-33.7); MCHC 33.3 g/dl (32.0-35.9); MEAN CELL VOLUME 91.5 fl (80-96); MEAN PLT VOLUME 9.2 fl (7.5-11.1); PLATELET COUNT 230 K/MM3 (134-434); RBC 3.64 M/mm3 (4.00-5.60); RDW 13.9 % (11.9-15.9); WHITE BLOOD COUNT 12.5 K/mm3 (4.0-10.8)
[2018-09-16 09:30] LABS: INR 2.82 (0.82-1.09); PROTHROMBIN TIME (PATIENT) 30.9 SEC (10.2-13.0)
--- NOTE | 2018-09-16 09:33 | PN ---
Progress Note, Physician Chief Complaint: Remained afebrile, astill c/o flatulence - Current Medication List Current Medications: Active Medications Acetaminophen (Tylenol -) 650 mg PO Q6H PRN PRN Reason: FEVER Last Admin: 09/15/18 18:07 Dose: 650 mg Al Hydroxide/Mg Hydroxide (Mylanta Oral Suspension -) 30 ml PO Q8H PRN PRN Reason: DYSPEPSIA Last Admin: 09/16/18 06:11 Dose: 30 ml Atorvastatin Calcium (Lipitor -) 20 mg PO HS [facility] Last Admin: 09/15/18 21:07 Dose: 20 mg Lisinopril (Prinivil) 10 mg PO HS [facility] Last Admin: 09/15/18 21:07 Dose: 10 mg Tamsulosin HCl (Flomax -) 0.4 mg PO DAILY@0830 [facility] Last Admin: 09/15/18 09:28 Dose: 0.4 mg - Objective Vital Signs: Vital Signs Temperature 98.9 F 09/16/18 06:00 Pulse Rate 70 09/16/18 06:00 Respiratory Rate 17 09/16/18 06:00 Blood Pressure 128/64 09/16/18 06:00 O2 Sat by Pulse Oximetry (%) 93 L 09/16/18 06:00 GENERAL: Elderly man , afebrile, no acute distress. HEENT: Normal with no signs of trauma, PERRL, extraocular movements intact, sclera anicteric, conjunctiva clear, Ears normal, oropharynx clear without exudates, moist mucous membranes. NECK: Trachea midline, full range of motion, supple. LUNGS: Breath sounds equal, clear to auscultation bilaterally, no wheezes, no crackles, HEART: IRegular rate AFib , S1, S2 without murmur, rub or gallop. ABDOMEN: Soft, mild tender, nondistended, normoactive bowel sounds, no guarding , no rebound. EXTREMITIES: 2+ pulses, warm, well-perfused, no edema. NEUROLOGICAL: Cranial nerves II through XII grossly intact. Normal speech, gait not observed. SKIN: Warm, dry, normal turgor, no rashes or lesions noted Labs: INR, PTT INR 4.84 (0.82-1.09) H* 09/15/18 07:45 Problem List - Problems (1) Fever Assessment/Plan: Resolved possibility of recurrent UTI /Collitis will F/U Stool W/U and final utrine culture ID consulted recommended Zosyn pending culture result Tylenol PRN for fever Code(s): R50.9 - FEVER, UNSPECIFIED Qualifiers: Fever type: unspecified Qualified Code(s): R50.9 - Fever, unspecified (2) HTN (hypertension) Assessment/Plan: Well controlled cont current meds Code(s): I10 - ESSENTIAL (PRIMARY) HYPERTENSION (3) Chronic a-fib Assessment/Plan: rate controlled on Coumadin now INR 2.8 will resume AC with low dose decresed dose coumadin at home patient is on Code(s): I48.2 - CHRONIC ATRIAL FIBRILLATION (4) CAD (coronary artery disease) Assessment/Plan: Stable no active issue Code(s): I25.10 - ATHSCL HEART DISEASE OF [place] CORONARY ARTERY W/O ANG PCTRS (5) Supratherapeutic INR Assessment/Plan: Now INR 2.82 will resume will reduced dose to 4 mg F/U INR in am at home patient is on 7 mg Code(s): R79.1 - ABNORMAL COAGULATION PROFILE
[2018-09-16 09:37] LABS: ALBUMIN 3.1 g/dl (3.4-5.0); ALK PHOS 176 U/L (45-117); ANION GAP 9 MMOL/L (8-16); BILIRUBIN,TOTAL 1.1 mg/dl (0.2-1); BLOOD UREA NITROGEN 11 mg/dl (7-18); CALCIUM 8.8 mg/dl (8.5-10); CHLORIDE 104 mmol/L (98-107); CO2 23 mmol/L (21-32); GLUCOSE,RANDOM 80 mg/dl (74-106); POTASSIUM 4.7 mmol/L (3.5-5.1); SGOT/AST 19 U/L (15-37); SGPT/ALT 26 U/L (13-61); SODIUM 136 mmol/L (136-145); TOT PROT 6.3 g/dl (6.4-8.2)
[2018-09-16] MEDS: ACETAMINOPHEN 325 MG TABLET (FP) PO PRN ×2 (09:45→21:06)
[2018-09-16] MEDS: TAMSULOSIN HCL 0.4 MG CAP PO SCH (09:45)
--- NOTE | 2018-09-16 10:52 | CON.ID ---
Consult Consult Specialty:: infectious diseases Referred by:: hospitalist Reason for Consultation:: leukocytosis,fever - History of Present Illness Chief Complaint: fever,chills History of Present Illness: 83 year old male, with a significant past medical history of CAD s/p CABG, BPH, Afib and antiphospholipid syndrome on Coumadin, HTN, HLD, admitted to the hospital because of fever and chills .patients fever went uptll 102 As per patient, he experienced similar symptoms approximately 10 days ago (09/05 ) at which time he was evaluated in the ER but, signed out AMA on PO Cefpodoxime BID x 10 days after one dosage of IV antibiotics and IV fluids secondary to prior obligations. pateint then developed shivering again and had fevers and came back to ed and was admitted patient was given zosyn patient was c/o of abd pain mainly on the left side and said that he was constipated and had to take dulcolax he also mentions that he probably was retaining urine and since admission has been passing urine nicely - History Source History Provided By: Patient Limitations to Obtaining History: No Limitations - Alcohol/Substance Use Hx Alcohol Use: Yes (SOCIALLY) - Smoking History Smoking history: Never smoked Have you smoked in the past 12 months: No Aproximately how many cigarettes per day: 0 If you are a former smoker, when did you quit?: 2002 Home Medications - Allergies Allergies/Adverse Reactions: Allergies Allergy/AdvReac Type Severity Reaction Status Date / Time No Known Allergies Allergy Verified 09/14/18 15:11 - Home Medications Home Medications: Ambulatory Orders Lisinopril [Prinivil] 10 mg PO HS 08/14/12 Simvastatin [Zocor] 40 mg PO HS 08/14/12 Warfarin Sodium [Coumadin] 7 mg PO HS 08/14/12 Cefpodoxime Proxetil [Vantin -] 100 mg PO BID #20 tablet 09/05/18 Tamsulosin HCl 0.4 mg PO DAILY 09/05/18 Review of Systems - Review of Systems Constitutional: reports: Chills, Fever Cardiovascular: reports: No Symptoms Respiratory: reports: No Symptoms Gastrointestinal: reports: No Symptoms Genitourinary: reports: Other (says retaning urine) Musculoskeletal: reports: No Symptoms Integumentary: reports: No Symptoms Neurological: reports: No Symptoms Endocrine: reports: No Symptoms Hematology/Lymphatic: reports: No Symptoms Psychiatric: reports: No Symptoms Physical Exam Vital Signs: Vital Signs Temperature 98.1 F 09/16/18 09:46 Pulse Rate 88 09/16/18 09:46 Respiratory Rate 18 09/16/18 09:46 Blood Pressure 135/68 09/16/18 09:46 O2 Sat by Pulse Oximetry (%) 99 09/16/18 09:46 Constitutional: Yes: Well Nourished, No Distress, Calm Cardiovascular: Yes: Regular Rate and Rhythm Respiratory: Yes: Regular, CTA Bilaterally Gastrointestinal: Yes: Normal Bowel Sounds, Soft, Tenderness (left lower quadrant) Musculoskeletal: Yes: WNL Extremities: Yes: WNL Neurological: Yes: Alert, Oriented Psychiatric: Yes: Alert, Oriented Labs: CBC, BMP 09/16/18 06:30 09/16/18 06:30 Imaging - Results Chest X-ray: Report Reviewed, Image Reviewed Cat Scan: Report Reviewed, Image Reviewed Ultrasound: Report Reviewed, Image Reviewed Assessment/Plan this patient who comes in with fever and chills and leukocytosis now feelign better repeat infection of the urine noted uti fever chills bph leukocytosis plan will start patient on zosyn will await for the cx reports to be back monitor for fevers rest as per the team
[2018-09-16] MEDS: PIPERACILLIN/TAZOB 3.375 GM 3.375 GM in DEXTROSE 5%-WATER - 50 ML IVPB SCH ×2 (11:56→18:47)
[2018-09-16] MEDS ORDERED: PIPERACILLIN/TAZOBACTAM 3.375 GM VIAL IVPB ONE (18:38)
[2018-09-16] MEDS ORDERED: DEXTROSE 5%-WATER - 50 ML IVPB ONE (18:39)
[2018-09-16] MEDS: LISINOPRIL 10 MG TABLET (FP) PO SCH (21:06)
[2018-09-16] MEDS: ATORVASTATIN CA 20 MG TABLET (FP) PO SCH (21:06)
--- NOTE | 2018-09-16 22:20 | PN ---
Physical Exam: SUBJECTIVE: Patient seen and examined at bedside. Feeling better. OBJECTIVE: Vital Signs Period Temp Pulse Resp BP Sys/Bragg Pulse Ox Last 24 Hr 98.1 F-98.9 F 70-88 17-18 128-142/63-68 93-99 GENERAL: The patient is awake, alert, and fully oriented, in no acute distress. LUNGS: Breath sounds equal, clear to auscultation bilaterally, no wheezes, no crackles, no accessory muscle use. HEART: Regular rate and rhythm, S1, S2 ABDOMEN: Soft, nontender, nondistended EXTREMITIES: 2+ pulses, warm, well-perfused, no edema. NEUROLOGICAL: Cranial nerves II through XII grossly intact. Normal speech, gait not observed. Laboratory Results - last 24 hr 09/16/18 09/16/18 09/16/18 06:30 06:30 06:30 WBC 12.5 H RBC 3.64 L Hgb 11.1 L Hct 33.3 L MCV 91.5 MCH 30.5 MCHC 33.3 RDW 13.9 Plt Count 230 MPV 9.2 Absolute Neuts (auto) 10.3 Neutrophils % No Result Required. Neutrophils % (Manual) 80.0 Band Neutrophils % 2.0 Lymphocytes % No Result Required. Lymphocytes % (Manual) 10.0 D Monocytes % (Manual) 6 Metamyelocytes 2 D PT with INR 30.9 H INR 2.82 H D Sodium 136 Potassium 4.7 Chloride 104 Carbon Dioxide 23 Anion Gap 9 BUN 11 Creatinine 1.0 Creat Clearance w eGFR 71.36 Random Glucose 80 Calcium 8.8 Total Bilirubin 1.1 H AST 19 ALT 26 Alkaline Phosphatase 176 H D Total Protein 6.3 L Albumin 3.1 L Active Medications Generic Name Dose Route Start Last Admin Trade Name Freq PRN Reason Stop Dose Admin Acetaminophen 650 mg 09/14/18 22:00 09/16/18 21:06 Tylenol - PO 650 mg Q6H PRN Administration FEVER Al Hydroxide/Mg Hydroxide 30 ml 09/15/18 20:09 09/16/18 19:36 Mylanta Oral Suspension - PO 30 ml Q8H PRN Administration DYSPEPSIA Atorvastatin Calcium 20 mg 09/14/18 22:00 09/16/18 21:06 Lipitor - PO 20 mg HS IRINEO Administration Piperacillin Sod/Tazobactam 50 mls @ 100 mls/hr 09/16/18 11:00 09/16/18 18:47 Sod 3.375 gm/ Dextrose IVPB 100 mls/hr Q8H-IV IRINEO Administration Protocol Lisinopril 10 mg 09/14/18 22:15 09/16/18 21:06 Prinivil PO 10 mg HS IRINEO Administration Tamsulosin HCl 0.4 mg 09/15/18 08:30 09/16/18 09:45 Flomax - PO 0.4 mg DAILY@0830 IRINEO Administration ASSESSMENT/PLAN 83 year-old male with a PMH significant for HTN, HLD, CAD s/p CABG x 4 (2003), afib on coumadin, BPH, and antiphospholipd syndrome. Was seen on ED on 09/05/18, diagnosed with UTI, and given a prescription for cefpodoxime BID which course the patient completed on 09/12. On 09/13 patient developed fever, chills, and periumbilical pain. Morganella UTI --urine culture on 09/05 grew E.coli sensitive to cefpodoxime --urine culture from 09/14 grew Morganella, resistant to cephalosporins (20- 30k colonies) --was septic on admission, T101.5, WBC 13.9k; fever and leukocytosis now resolved --continue Zosyn (day #2) C. difficile colitis --may be alternative source for sepsis --start PO vanc Hypertension --BP stable --continue lisinopril Hyperlipidemia --continue Lipitor Coronary artery disease --continue statin; not on beta samir or ASA Atrial fibrillation --rate is controlled --INR 5.01 on admission, 2.15 today; resume home dose warfarin 7mg today Antiphospholipid syndrome BPH --continue tamsulosin Left kidney upper pole cyst --patient says he follows with a urologist FEN Fluids: PO intake adequate Electrolytes: replete as indicated Nutrition: low sodium DVT prophylaxis: on coumadin, INR therapeutic Dispo: continues to require inpatient care. Full code. Visit type - Emergency Visit Emergency Visit: Yes ED Registration Date: 09/16/18 Care time: The patient presented to the Emergency Department on the above date and was hospitalized for further evaluation of their emergent condition. - New Patient This patient is new to me today: Yes Date on this admission: 09/17/18 - Critical Care Critical Care patient: No
[2018-09-17] MEDS: PIPERACILLIN/TAZOB 3.375 GM 3.375 GM in DEXTROSE 5%-WATER - 50 ML IVPB SCH ×3 (01:27→18:07)
[2018-09-17 07:37] LABS: BASO % 0.1 % (0-2.0); EOS % 1.7 % (0-4.5); HEMATOCRIT 32.6 % (35.4-49); HEMOGLOBIN 10.7 GM/dl (11.7-16.9); LYMPH % 12.5 % (8-40); MCH 30.2 pg (25.7-33.7); MCHC 32.8 g/dl (32.0-35.9); MEAN PLT VOLUME 8.9 fl (7.5-11.1); MONO % 7.8 % (3.8-10.2); NEUT % 77.9 % (42.8-82.8); PLATELET COUNT 225 K/MM3 (134-434); RBC 3.55 M/mm3 (4.00-5.60); RDW 14.1 % (11.9-15.9); WHITE BLOOD COUNT 9.5 K/mm3 (4.0-10.8)
[2018-09-17 07:42] LABS: INR 2.15 (0.82-1.09); PROTHROMBIN TIME (PATIENT) 23.7 SEC (10.2-13.0)
[2018-09-17 07:58] LABS: ALBUMIN 2.9 g/dl (3.4-5.0); ALK PHOS 161 U/L (45-117); ANION GAP 6 MMOL/L (8-16); BILIRUBIN,TOTAL 0.9 mg/dl (0.2-1); BLOOD UREA NITROGEN 11 mg/dl (7-18); CALCIUM 8.6 mg/dl (8.5-10); CHLORIDE 103 mmol/L (98-107); CO2 27 mmol/L (21-32); CREATININE 1.1 mg/dl (0.55-1.3); GLUCOSE,RANDOM 97 mg/dl (74-106); POTASSIUM 4.5 mmol/L (3.5-5.1); SGOT/AST 18 U/L (15-37); SGPT/ALT 24 U/L (13-61); SODIUM 136 mmol/L (136-145); TOT PROT 6.4 g/dl (6.4-8.2)
[2018-09-17] MEDS ORDERED: PIPERACILLIN/TAZOBACTAM 3.375 GM VIAL IVPB ONE ×2 (09:25→17:57)
[2018-09-17] MEDS ORDERED: DEXTROSE 5%-WATER - 50 ML IVPB ONE ×2 (09:25→17:57)
[2018-09-17] MEDS: TAMSULOSIN HCL 0.4 MG CAP PO SCH (09:32)
--- NOTE | 2018-09-17 10:06 | PN ---
Progress Note, Physician History of Present Illness: stable doing well remained afebrile wbc trended towards normal all stool studies send - Current Medication List Current Medications: Active Medications Acetaminophen (Tylenol -) 650 mg PO Q6H PRN PRN Reason: FEVER Last Admin: 09/16/18 21:06 Dose: 650 mg Al Hydroxide/Mg Hydroxide (Mylanta Oral Suspension -) 30 ml PO Q8H PRN PRN Reason: DYSPEPSIA Last Admin: 09/16/18 19:36 Dose: 30 ml Atorvastatin Calcium (Lipitor -) 20 mg PO HS [facility] Last Admin: 09/16/18 21:06 Dose: 20 mg Piperacillin Sod/Tazobactam (Sod 3.375 gm/ Dextrose) 50 mls @ 100 mls/hr IVPB Q8H-IV IRINEO; Protocol Last Admin: 09/17/18 09:32 Dose: 100 mls/hr Lisinopril (Prinivil) 10 mg PO HS [facility] Last Admin: 09/16/18 21:06 Dose: 10 mg Tamsulosin HCl (Flomax -) 0.4 mg PO DAILY@0830 [facility] Last Admin: 09/17/18 09:32 Dose: 0.4 mg - Objective Vital Signs: Vital Signs Temperature 98.4 F 09/17/18 09:57 Pulse Rate 72 09/17/18 09:57 Respiratory Rate 18 09/17/18 09:57 Blood Pressure 112/56 L 09/17/18 09:57 O2 Sat by Pulse Oximetry (%) 96 09/17/18 09:57 Constitutional: Yes: No Distress, Calm Cardiovascular: Yes: Regular Rate and Rhythm Respiratory: Yes: Regular, CTA Bilaterally Gastrointestinal: Yes: Normal Bowel Sounds, Soft Musculoskeletal: Yes: WNL Extremities: Yes: WNL Neurological: Yes: Alert, Oriented Psychiatric: Yes: Alert, Oriented Labs: CBC, BMP 09/17/18 06:20 09/17/18 06:20 INR, PTT INR 2.15 (0.82-1.09) H 09/17/18 06:20 Assessment/Plan this patient who comes in with fever and chills and leukocytosis now feelign better repeat infection of the urine noted uti fever chills bph leukocytosis plan continue zosyn await for identification and sensitivities of the organism patient failed out patient oral treatment rest as per the team
[2018-09-17] MEDS ORDERED: WARFARIN NA 5 MG TABLET (UD) PO ONE (11:48)
[2018-09-17] MEDS ORDERED: WARFARIN NA 5 MG, WARFARIN NA 2 MG PO ONE (12:00)
[2018-09-17] MEDS ORDERED: WARFARIN NA 5 MG TABLET (UD) ONE (12:34)
[2018-09-17] MEDS ORDERED: WARFARIN NA 2 MG TABLET (UD) ONE (12:35)
[2018-09-17] MEDS ORDERED: REFRIGERATED ANITBIOTICS ONE ×2 (17:58→23:43)
[2018-09-17] MEDS: VANCOMYCIN 250 MG/5 ML ORAL SOLUTION PO SCH (18:07)
[2018-09-17] MEDS: ATORVASTATIN CA 20 MG TABLET (FP) PO SCH (21:32)
[2018-09-17] MEDS: LISINOPRIL 10 MG TABLET (FP) PO SCH (21:32)
[2018-09-18] MEDS: VANCOMYCIN 250 MG/5 ML ORAL SOLUTION PO SCH ×4 (00:01→17:04)
[2018-09-18] MEDS ORDERED: DEXTROSE 5%-WATER - 50 ML IVPB ONE ×3 (01:28→16:55)
[2018-09-18] MEDS ORDERED: PIPERACILLIN/TAZOBACTAM 3.375 GM VIAL IVPB ONE ×4 (01:28→16:59)
[2018-09-18] MEDS: PIPERACILLIN/TAZOB 3.375 GM 3.375 GM in DEXTROSE 5%-WATER - 50 ML IVPB SCH ×3 (01:59→17:04)
[2018-09-18] MEDS ORDERED: REFRIGERATED ANITBIOTICS ONE ×3 (05:55→16:55)
[2018-09-18 07:03] LABS: BASO % 0.4 % (0-2.0); EOS % 2.3 % (0-4.5); HEMATOCRIT 31.3 % (35.4-49); HEMOGLOBIN 10.7 GM/dl (11.7-16.9); LYMPH % 16.2 % (8-40); MCH 31.6 pg (25.7-33.7); MCHC 34.2 g/dl (32.0-35.9); MEAN CELL VOLUME 92.3 fl (80-96); MEAN PLT VOLUME 8.1 fl (7.5-11.1); MONO % 11.6 % (3.8-10.2); NEUT % 69.5 % (42.8-82.8); PLATELET COUNT 241 K/MM3 (134-434); RDW 13.9 % (11.9-15.9)
[2018-09-18 07:16] LABS: ALK PHOS 161 U/L (45-117); GLUCOSE,RANDOM 97 mg/dl (74-106)
[2018-09-18 07:27] LABS: ANION GAP 7 MMOL/L (8-16); BILIRUBIN,TOTAL 0.7 mg/dl (0.2-1); BLOOD UREA NITROGEN 10 mg/dl (7-18); CALCIUM 8.8 mg/dl (8.5-10); CHLORIDE 105 mmol/L (98-107); CO2 24 mmol/L (21-32); CREATININE 1.1 mg/dl (0.55-1.3); POTASSIUM 4.5 mmol/L (3.5-5.1); SGOT/AST 19 U/L (15-37); SGPT/ALT 24 U/L (13-61); SODIUM 136 mmol/L (136-145); TOT PROT 6.4 g/dl (6.4-8.2)
[2018-09-18 07:33] LABS: PROTHROMBIN TIME (PATIENT) 22.1 SEC (10.2-13.0)
--- NOTE | 2018-09-18 07:43 | PN ---
Progress Note, Physician - Current Medication List Current Medications: Active Medications Acetaminophen (Tylenol -) 650 mg PO Q6H PRN PRN Reason: FEVER Last Admin: 09/16/18 21:06 Dose: 650 mg Al Hydroxide/Mg Hydroxide (Mylanta Oral Suspension -) 30 ml PO Q8H PRN PRN Reason: DYSPEPSIA Last Admin: 09/16/18 19:36 Dose: 30 ml Atorvastatin Calcium (Lipitor -) 20 mg PO HS IRINEO Last Admin: 09/17/18 21:32 Dose: 20 mg Piperacillin Sod/Tazobactam (Sod 3.375 gm/ Dextrose) 50 mls @ 100 mls/hr IVPB Q8H-IV IRINEO; Protocol Last Admin: 09/18/18 01:59 Dose: 100 mls/hr Lisinopril (Prinivil) 10 mg PO HS IRINEO Last Admin: 09/17/18 21:32 Dose: 10 mg Tamsulosin HCl (Flomax -) 0.4 mg PO DAILY@0830 IRINEO Last Admin: 09/17/18 09:32 Dose: 0.4 mg Vancomycin HCl (Vancomycin Oral Solution) 125 mg PO Q6HPO IRINEO Last Admin: 09/18/18 06:20 Dose: 125 mg - Objective Vital Signs: Vital Signs Temperature 97.9 F 09/18/18 06:00 Pulse Rate 74 09/18/18 06:00 Respiratory Rate 19 09/18/18 06:00 Blood Pressure 124/69 09/18/18 06:00 O2 Sat by Pulse Oximetry (%) 95 09/18/18 06:17 Labs: CBC, BMP 09/18/18 06:30 09/18/18 06:30 INR, PTT INR 2.00 (0.82-1.09) H 09/18/18 06:30
--- NOTE | 2018-09-18 09:02 | PN ---
Physical Exam: SUBJECTIVE: Patient seen and examined at bedside. Mild abdominal discomfort after eating breakfast. BMs are gaseous, unformed stool. OBJECTIVE: Vital Signs Period Temp Pulse Resp BP Sys/Bragg Pulse Ox Last 24 Hr 97.9 F-98.8 F 60-74 17-19 98-154/56-79 95-98 GENERAL: The patient is awake, alert, and fully oriented, in no acute distress. LUNGS: Breath sounds equal, clear to auscultation bilaterally, no wheezes, no crackles, no accessory muscle use. HEART: Regular rate and rhythm, S1, S2 ABDOMEN: Soft, nontender, nondistended EXTREMITIES: 2+ pulses, warm, well-perfused, no edema. NEUROLOGICAL: Cranial nerves II through XII grossly intact. Normal speech, gait not observed. Laboratory Results - last 24 hr 09/18/18 09/18/18 09/18/18 06:30 06:30 06:30 WBC 8.0 RBC 3.40 L Hgb 10.7 L Hct 31.3 L MCV 92.3 MCH 31.6 MCHC 34.2 RDW 13.9 Plt Count 241 MPV 8.1 Absolute Neuts (auto) 5.6 Neutrophils % 69.5 Lymphocytes % 16.2 D Monocytes % 11.6 H Eosinophils % 2.3 Basophils % 0.4 D PT with INR 22.1 H INR 2.00 H Sodium 136 Potassium 4.5 Chloride 105 Carbon Dioxide 24 Anion Gap 7 L BUN 10 Creatinine 1.1 Creat Clearance w eGFR 63.93 Random Glucose 97 Calcium 8.8 Magnesium 2.0 Total Bilirubin 0.7 AST 19 ALT 24 Alkaline Phosphatase 161 H Total Protein 6.4 Albumin 3.0 L Active Medications Generic Name Dose Route Start Last Admin Trade Name Freq PRN Reason Stop Dose Admin Acetaminophen 650 mg 09/14/18 22:00 09/16/18 21:06 Tylenol - PO 650 mg Q6H PRN Administration FEVER Al Hydroxide/Mg Hydroxide 30 ml 09/15/18 20:09 09/16/18 19:36 Mylanta Oral Suspension - PO 30 ml Q8H PRN Administration DYSPEPSIA Atorvastatin Calcium 20 mg 09/14/18 22:00 09/17/18 21:32 Lipitor - PO 20 mg HS IRINEO Administration Piperacillin Sod/Tazobactam 50 mls @ 100 mls/hr 09/16/18 11:00 09/18/18 01:59 Sod 3.375 gm/ Dextrose IVPB 100 mls/hr Q8H-IV IRINEO Administration Protocol Lisinopril 10 mg 09/14/18 22:15 09/17/18 21:32 Prinivil PO 10 mg HS IRINEO Administration Tamsulosin HCl 0.4 mg 09/15/18 08:30 09/17/18 09:32 Flomax - PO 0.4 mg DAILY@0830 IRINEO Administration Vancomycin HCl 125 mg 09/17/18 18:00 09/18/18 06:20 Vancomycin Oral Solution PO 125 mg Q6HPO IRINEO Administration ASSESSMENT/PLAN 83 year-old male with a PMH significant for HTN, HLD, CAD s/p CABG x 4 (2003), afib on coumadin, BPH, and antiphospholipd syndrome. Was seen on ED on 09/05/18, diagnosed with UTI, and prescribed a course of cefpodoxime which the patient completed on 09/12. On 09/13 patient developed fever, chills, and periumbilical pain. Morganella UTI --urine culture on 09/05 grew E.coli sensitive to cefpodoxime --urine culture from 09/14 grew Morganella, resistant to cephalosporins (20- 30k colonies) --was septic on admission, T101.5, WBC 13.9k; fever and leukocytosis now resolved --continue Zosyn (day #3) C. difficile colitis --may be alternative source for sepsis --symptomatic: abdominal pain, diarrhea --continue PO vanc (day #2) Hypertension --BP stable --continue lisinopril Hyperlipidemia --continue Lipitor Coronary artery disease --continue statin; not on beta samir or ASA Atrial fibrillation --rate is controlled --INR 5.01 on admission, 2.0 today; continue warfarin 7mg Antiphospholipid syndrome BPH --continue tamsulosin Left kidney upper pole cyst --patient follows with a urologist FEN Fluids: PO intake adequate Electrolytes: replete as indicated Nutrition: low sodium DVT prophylaxis: on coumadin, INR therapeutic Dispo: continues to require inpatient care. Full code. Visit type - Emergency Visit Emergency Visit: Yes ED Registration Date: 09/16/18 Care time: The patient presented to the Emergency Department on the above date and was hospitalized for further evaluation of their emergent condition. - New Patient This patient is new to me today: No - Critical Care Critical Care patient: No
[2018-09-18] MEDS: TAMSULOSIN HCL 0.4 MG CAP PO SCH (09:04)
[2018-09-18] MEDS: SODIUM CHLORIDE 1,000 ML IV SCH (12:26)
[2018-09-18] MEDS ORDERED: WARFARIN NA 5 MG TABLET (UD) ONE (16:55)
[2018-09-18] MEDS ORDERED: WARFARIN NA 2 MG TABLET (UD) ONE (16:55)
[2018-09-18] MEDS: WARFARIN NA 5 MG, WARFARIN NA 2 MG PO SCH (17:05)
[2018-09-18] MEDS ORDERED: WARFARIN NA 7.5 MG TABLET (FP) PO SCH (18:00)
[2018-09-18] MEDS ORDERED: PT OWN MED DRAWER 7, Y5N ONE (21:33)
[2018-09-18] MEDS: LISINOPRIL 10 MG TABLET (FP) PO SCH (22:08)
[2018-09-18] MEDS: ATORVASTATIN CA 20 MG TABLET (FP) PO SCH (22:08)
[2018-09-19] MEDS: PIPERACILLIN/TAZOB 3.375 GM 3.375 GM in DEXTROSE 5%-WATER - 50 ML IVPB SCH ×3 (02:21→17:44)
[2018-09-19] MEDS ORDERED: DEXTROSE 5%-WATER - 50 ML IVPB ONE ×3 (03:07→17:29)
[2018-09-19] MEDS ORDERED: PIPERACILLIN/TAZOBACTAM 3.375 GM VIAL IVPB ONE ×3 (03:07→17:29)
[2018-09-19] MEDS ORDERED: REFRIGERATED ANITBIOTICS ONE ×4 (05:32→23:51)
[2018-09-19] MEDS: VANCOMYCIN 250 MG/5 ML ORAL SOLUTION PO SCH ×4 (05:50→17:43)
[2018-09-19 08:21] LABS: BASO % 0.3 % (0-2.0); EOS % 2.4 % (0-4.5); HEMATOCRIT 34.5 % (35.4-49); HEMOGLOBIN 11.3 GM/dl (11.7-16.9); LYMPH % 14.8 % (8-40); MCHC 32.7 g/dl (32.0-35.9); MEAN CELL VOLUME 91.8 fl (80-96); MEAN PLT VOLUME 8.4 fl (7.5-11.1); MONO % 11.5 % (3.8-10.2); PLATELET COUNT 286 K/MM3 (134-434); RBC 3.76 M/mm3 (4.00-5.60); RDW 13.9 % (11.9-15.9)
[2018-09-19 08:28] LABS: ALK PHOS 158 U/L (45-117); ANION GAP 7 MMOL/L (8-16); BILIRUBIN,TOTAL 0.6 mg/dl (0.2-1); BLOOD UREA NITROGEN 10 mg/dl (7-18); CHLORIDE 104 mmol/L (98-107); CO2 25 mmol/L (21-32); CREATININE 1.1 mg/dl (0.55-1.3); GLUCOSE,RANDOM 89 mg/dl (74-106); POTASSIUM 4.6 mmol/L (3.5-5.1); SGOT/AST 19 U/L (15-37); SGPT/ALT 22 U/L (13-61); SODIUM 136 mmol/L (136-145); TOT PROT 6.6 g/dl (6.4-8.2)
[2018-09-19] MEDS: TAMSULOSIN HCL 0.4 MG CAP PO SCH (08:47)
--- NOTE | 2018-09-19 12:01 | PN ---
Progress Note, Physician - Current Medication List Current Medications: Active Medications Acetaminophen (Tylenol -) 650 mg PO Q6H PRN PRN Reason: FEVER Last Admin: 09/16/18 21:06 Dose: 650 mg Al Hydroxide/Mg Hydroxide (Mylanta Oral Suspension -) 30 ml PO Q8H PRN PRN Reason: DYSPEPSIA Last Admin: 09/16/18 19:36 Dose: 30 ml Atorvastatin Calcium (Lipitor -) 20 mg PO HS [facility] Last Admin: 09/18/18 22:08 Dose: 20 mg Piperacillin Sod/Tazobactam (Sod 3.375 gm/ Dextrose) 50 mls @ 100 mls/hr IVPB Q8H-IV IRINEO; Protocol Last Admin: 09/19/18 09:25 Dose: 100 mls/hr Sodium Chloride (Normal Saline -) 1,000 mls @ 75 mls/hr IV ASDIR IRINEO Last Admin: 09/18/18 12:26 Dose: 75 mls/hr Lisinopril (Prinivil) 10 mg PO HS [facility] Last Admin: 09/18/18 22:08 Dose: 10 mg Tamsulosin HCl (Flomax -) 0.4 mg PO DAILY@0830 [facility] Last Admin: 09/19/18 08:47 Dose: 0.4 mg Vancomycin HCl (Vancomycin Oral Solution) 125 mg PO Q6HPO [facility] Last Admin: 09/19/18 11:42 Dose: 125 mg Warfarin Sodium 5 mg/ Warfarin (Sodium 2 mg) 7 mg PO DAILY@1800 [facility] Last Admin: 09/18/18 17:05 Dose: 7 mg - Objective Vital Signs: Vital Signs Temperature 98.8 F 09/19/18 09:00 Pulse Rate 66 09/19/18 09:00 Respiratory Rate 16 09/19/18 09:00 Blood Pressure 118/68 09/19/18 09:00 O2 Sat by Pulse Oximetry (%) 97 09/19/18 08:15 Labs: CBC, BMP 09/19/18 07:00 09/19/18 07:00 INR, PTT INR 2.00 (0.82-1.09) H 09/18/18 06:30
--- NOTE | 2018-09-19 16:59 | PN ---
Physical Exam: SUBJECTIVE: Patient seen and examined. Episode of diarrheal incontinence earlier. Some stools are formed but still some watery diarrhea. Hungry. OBJECTIVE: Vital Signs Period Temp Pulse Resp BP Sys/Bragg Pulse Ox Last 24 Hr 98.1 F-98.8 F 66-85 16-18 105-137/56-72 95-98 GENERAL: The patient is awake, alert, and fully oriented, in no acute distress. LUNGS: Breath sounds equal, clear to auscultation bilaterally, no wheezes, no crackles, no accessory muscle use. HEART: Regular rate and rhythm, S1, S2 ABDOMEN: Soft, nontender, nondistended EXTREMITIES: 2+ pulses, warm, well-perfused, no edema. NEUROLOGICAL: Cranial nerves II through XII grossly intact. Normal speech, gait not observed. Laboratory Results - last 24 hr 09/19/18 09/19/18 07:00 07:00 WBC 7.0 RBC 3.76 L Hgb 11.3 L Hct 34.5 L MCV 91.8 MCH 30.0 MCHC 32.7 RDW 13.9 Plt Count 286 MPV 8.4 Absolute Neuts (auto) 5.0 Neutrophils % 71.0 Lymphocytes % 14.8 Monocytes % 11.5 H Eosinophils % 2.4 Basophils % 0.3 Sodium 136 Potassium 4.6 Chloride 104 Carbon Dioxide 25 Anion Gap 7 L BUN 10 Creatinine 1.1 Creat Clearance w eGFR 63.93 Random Glucose 89 Calcium 9.0 Magnesium 2.0 Total Bilirubin 0.6 AST 19 ALT 22 Alkaline Phosphatase 158 H Total Protein 6.6 Albumin 3.0 L Active Medications Generic Name Dose Route Start Last Admin Trade Name Freq PRN Reason Stop Dose Admin Acetaminophen 650 mg 09/14/18 22:00 09/16/18 21:06 Tylenol - PO 650 mg Q6H PRN Administration FEVER Al Hydroxide/Mg Hydroxide 30 ml 09/15/18 20:09 09/16/18 19:36 Mylanta Oral Suspension - PO 30 ml Q8H PRN Administration DYSPEPSIA Atorvastatin Calcium 20 mg 09/14/18 22:00 09/18/18 22:08 Lipitor - PO 20 mg HS IRINEO Administration Piperacillin Sod/Tazobactam 50 mls @ 100 mls/hr 09/16/18 11:00 09/19/18 09:25 Sod 3.375 gm/ Dextrose IVPB 100 mls/hr Q8H-IV IRINEO Administration Protocol Sodium Chloride 1,000 mls @ 75 mls/hr 09/18/18 12:15 09/18/18 12:26 Normal Saline - IV 75 mls/hr ASDIR IRINEO Administration Lisinopril 10 mg 09/14/18 22:15 09/18/18 22:08 Prinivil PO 10 mg HS IRINEO Administration Tamsulosin HCl 0.4 mg 09/15/18 08:30 09/19/18 08:47 Flomax - PO 0.4 mg DAILY@0830 IRINEO Administration Vancomycin HCl 125 mg 09/17/18 18:00 09/19/18 11:42 Vancomycin Oral Solution PO 125 mg Q6HPO IRINEO Administration Warfarin Sodium 5 mg/ Warfarin 7 mg 09/18/18 18:00 09/18/18 17:05 Sodium 2 mg PO 7 mg DAILY@1800 IRINEO Administration ASSESSMENT/PLAN 83 year-old male with a PMH significant for HTN, HLD, CAD s/p CABG x 4 (2003), afib on coumadin, BPH, and antiphospholipd syndrome. Was seen on ED on 09/05/18, diagnosed with UTI, and prescribed a course of cefpodoxime which the patient completed on 09/12. On 09/13 patient developed fever, chills, and periumbilical pain. Morganella UTI --urine culture on 09/05 grew E.coli sensitive to cefpodoxime, treated for 10 days --urine culture from 09/14 grew Morganella, resistant to cephalosporins (20- 30k colonies) --was septic on admission, T101.5, WBC 13.9k; fever and leukocytosis now resolved --continue Zosyn (day #4), tomorrow last day C. difficile colitis --may be alternative source for sepsis --symptomatic: diarrhea --continue PO vanc (day #3) Hypertension --BP stable --continue lisinopril Hyperlipidemia --continue Lipitor Coronary artery disease --continue statin; not on beta samir or ASA Atrial fibrillation --rate is controlled --INR 5.01 on admission, 2.0 today; continue warfarin 7mg Antiphospholipid syndrome BPH --continue tamsulosin Left kidney upper pole cyst --patient follows with a urologist FEN Fluids: PO intake adequate Electrolytes: replete as indicated Nutrition: low sodium DVT prophylaxis: on coumadin, INR therapeutic Dispo: continues to require inpatient care. Full code. Visit type - Emergency Visit Emergency Visit: Yes ED Registration Date: 09/16/18 Care time: The patient presented to the Emergency Department on the above date and was hospitalized for further evaluation of their emergent condition. - New Patient This patient is new to me today: No - Critical Care Critical Care patient: No
[2018-09-19] MEDS ORDERED: WARFARIN NA 2 MG TABLET (UD) ONE (17:29)
[2018-09-19] MEDS ORDERED: WARFARIN NA 5 MG TABLET (UD) ONE (17:29)
[2018-09-19] MEDS: WARFARIN NA 5 MG, WARFARIN NA 2 MG PO SCH (17:43)
[2018-09-19] MEDS: SODIUM CHLORIDE 1,000 ML IV SCH (17:43)
[2018-09-19] MEDS: ATORVASTATIN CA 20 MG TABLET (FP) PO SCH (21:57)
[2018-09-19] MEDS: LISINOPRIL 10 MG TABLET (FP) PO SCH (21:57)
[2018-09-20] MEDS: VANCOMYCIN 250 MG/5 ML ORAL SOLUTION PO SCH ×4 (00:03→18:30)
[2018-09-20] MEDS ORDERED: DEXTROSE 5%-WATER - 50 ML IVPB ONE ×3 (01:35→16:43)
[2018-09-20] MEDS ORDERED: PIPERACILLIN/TAZOBACTAM 3.375 GM VIAL IVPB ONE ×3 (01:35→16:43)
[2018-09-20] MEDS: PIPERACILLIN/TAZOB 3.375 GM 3.375 GM in DEXTROSE 5%-WATER - 50 ML IVPB SCH ×3 (01:44→17:00)
[2018-09-20] MEDS ORDERED: REFRIGERATED ANITBIOTICS ONE ×3 (06:22→16:43)
[2018-09-20 07:48] LABS: INR 2.61 (0.82-1.09); PROTHROMBIN TIME (PATIENT) 28.7 SEC (10.2-13.0)
[2018-09-20 07:54] LABS: ALK PHOS 149 U/L (45-117); ANION GAP 5 MMOL/L (8-16); BILIRUBIN,TOTAL 0.6 mg/dl (0.2-1); BLOOD UREA NITROGEN 9 mg/dl (7-18); CALCIUM 8.8 mg/dl (8.5-10); CHLORIDE 109 mmol/L (98-107); CO2 23 mmol/L (21-32); CREATININE 1.1 mg/dl (0.55-1.3); GLUCOSE,RANDOM 99 mg/dl (74-106); MAGNESIUM 1.9 mg/dL (1.8-2.4); POTASSIUM 4.4 mmol/L (3.5-5.1); SGOT/AST 20 U/L (15-37); SGPT/ALT 23 U/L (13-61); SODIUM 137 mmol/L (136-145); TOT PROT 6.4 g/dl (6.4-8.2)
[2018-09-20 08:18] LABS: BASO % 0.4 % (0-2.0); EOS % 1.9 % (0-4.5); HEMOGLOBIN 11.2 GM/dl (11.7-16.9); LYMPH % 16.2 % (8-40); MCH 31.1 pg (25.7-33.7); MCHC 33.8 g/dl (32.0-35.9); MEAN CELL VOLUME 91.8 fl (80-96); MEAN PLT VOLUME 8.4 fl (7.5-11.1); MONO % 11.1 % (3.8-10.2); NEUT % 70.4 % (42.8-82.8); PLATELET COUNT 263 K/MM3 (134-434); RDW 13.7 % (11.9-15.9); WHITE BLOOD COUNT 7.1 K/mm3 (4.0-10.8)
--- NOTE | 2018-09-20 08:32 | DS ---
Physical Exam: SUBJECTIVE: Patient seen and examined OBJECTIVE: Vital Signs Period Temp Pulse Resp BP Sys/Bragg Pulse Ox Last 24 Hr 98.4 F-98.8 F 66-77 16-18 105-133/49-76 95-98 PHYSICAL EXAM GENERAL: The patient is awake, alert, and fully oriented, in no acute distress. LUNGS: Breath sounds equal, clear to auscultation bilaterally, no wheezes, no crackles, no accessory muscle use. HEART: Regular rate and rhythm, S1, S2 ABDOMEN: Soft, nontender, nondistended EXTREMITIES: 2+ pulses, warm, well-perfused, no edema. NEUROLOGICAL: Cranial nerves II through XII grossly intact. Normal speech, gait not observed. LABS Laboratory Results - last 24 hr 09/19/18 09/19/18 09/20/18 07:00 07:00 07:00 WBC 7.0 7.1 RBC 3.76 L 3.60 L Hgb 11.3 L 11.2 L Hct 34.5 L 33.0 L MCV 91.8 91.8 MCH 30.0 31.1 MCHC 32.7 33.8 RDW 13.9 13.7 Plt Count 286 263 MPV 8.4 8.4 Absolute Neuts (auto) 5.0 5.0 Neutrophils % 71.0 70.4 Lymphocytes % 14.8 16.2 Monocytes % 11.5 H 11.1 H Eosinophils % 2.4 1.9 Basophils % 0.3 0.4 Sodium 136 Potassium 4.6 Chloride 104 Carbon Dioxide 25 Anion Gap 7 L BUN 10 Creatinine 1.1 Creat Clearance w eGFR 63.93 Random Glucose 89 Calcium 9.0 Magnesium 2.0 Total Bilirubin 0.6 AST 19 ALT 22 Alkaline Phosphatase 158 H Total Protein 6.6 Albumin 3.0 L HOSPITAL COURSE: Date of Admission:09/16/18 Date of Discharge: 09/20/18 Pre hospital course 83 year-old male with a PMH significant for HTN, HLD, CAD s/p CABG x 4 (2003), afib on coumadin, BPH, and antiphospholipd syndrome. Was seen on ED on 09/05/18, diagnosed with UTI, and prescribed a course of cefpodoxime which the patient completed on 09/12. On 09/13 patient developed fever, chills, and periumbilical pain. Subsequent hospital course by problem list Morganella UTI --urine culture on 09/05 grew E.coli sensitive to cefpodoxime, treated for 10 days PO abx --urine culture from 09/14 grew Morganella, resistant to cephalosporins (20- 30k colonies) --was septic on admission, T101.5, WBC 13.9k; fever and leukocytosis resolved --treated with Zosyn x 5 days, course complete C. difficile colitis --treated with PO vanc x 4 days; discharged with script for additional 10 days of treatment Hypertension --BP stable --continued lisinopril Hyperlipidemia --continued Lipitor Coronary artery disease --continued statin; not on beta samir or ASA Atrial fibrillation --rate wass controlled --INR 5.01 on admission and coumadin was initially held; INR 2.6 at time of discharge, dosing warfarin 7mg daily Antiphospholipid syndrome BPH --continued tamsulosin Left kidney upper pole cyst --patient follows with a urologist Minutes to complete discharge: 35 Discharge Summary Reason For Visit: SEPSIS,PNEUMONIA Current Active Problems CAD (coronary artery disease) (Acute) Chronic a-fib (Acute) HTN (hypertension) (Acute) Pneumonia (Acute) Supratherapeutic INR (Acute) Condition: Improved - Instructions Diet, Activity, Other Instructions: You have completed the antibiotic course for your urinary tract infection. You need to continue to take oral vancomycin for a Clostridium difficile infection to complete 14 days of treatment. A prescription has been sent to your pharmacy. Take the medication as directed and be sure to finish all the medication. You should follow up with your primary care provider when you complete the course of vancomycin. Return to the emergency department for any new or worsening symptoms. Referrals: [place] [facility] [Primary Care Provider] - Disposition: HOME - Home Medications Comprehensive Discharge Medication List: Ambulatory Orders Lisinopril [Prinivil] 10 mg PO HS 08/14/12 Simvastatin [Zocor] 40 mg PO HS 08/14/12 Warfarin Sodium [Coumadin] 7 mg PO HS 08/14/12 Cefpodoxime Proxetil [Vantin -] 100 mg PO BID #20 tablet 09/05/18 Tamsulosin HCl 0.4 mg PO DAILY 09/05/18 This patient is new to me today: No Emergency Visit: Yes ED Registration Date: 09/16/18 Care time: The patient presented to the Emergency Department on the above date and was hospitalized for further evaluation of their emergent condition. Critical Care patient: No - Discharge Referral Referred to [facility] Med P.C.: No
--- NOTE | 2018-09-20 09:26 | PN ---
Progress Note, Physician History of Present Illness: patient stable doing well no new issues - Current Medication List Current Medications: Active Medications Acetaminophen (Tylenol -) 650 mg PO Q6H PRN PRN Reason: FEVER Last Admin: 09/16/18 21:06 Dose: 650 mg Al Hydroxide/Mg Hydroxide (Mylanta Oral Suspension -) 30 ml PO Q8H PRN PRN Reason: DYSPEPSIA Last Admin: 09/16/18 19:36 Dose: 30 ml Atorvastatin Calcium (Lipitor -) 20 mg PO HS [facility] Last Admin: 09/19/18 21:57 Dose: 20 mg Piperacillin Sod/Tazobactam (Sod 3.375 gm/ Dextrose) 50 mls @ 100 mls/hr IVPB Q8H-IV IRINEO; Protocol Last Admin: 09/20/18 01:44 Dose: 100 mls/hr Sodium Chloride (Normal Saline -) 1,000 mls @ 75 mls/hr IV ASDIR [facility] Last Admin: 09/19/18 17:43 Dose: 75 mls/hr Lisinopril (Prinivil) 10 mg PO [facility] Last Admin: 09/19/18 21:57 Dose: 10 mg Tamsulosin HCl (Flomax -) 0.4 mg PO DAILY@0830 [facility] Last Admin: 09/19/18 08:47 Dose: 0.4 mg Vancomycin HCl (Vancomycin Oral Solution) 125 mg PO Q6HPO [facility] Last Admin: 09/20/18 06:31 Dose: 125 mg Warfarin Sodium 5 mg/ Warfarin (Sodium 2 mg) 7 mg PO DAILY@1800 [facility] Last Admin: 09/19/18 17:43 Dose: 7 mg - Objective Vital Signs: Vital Signs Temperature 98.6 F 09/20/18 06:00 Pulse Rate 66 09/20/18 06:00 Respiratory Rate 17 09/20/18 06:00 Blood Pressure 116/70 09/20/18 06:00 O2 Sat by Pulse Oximetry (%) 96 09/20/18 06:22 Constitutional: Yes: No Distress, Calm Cardiovascular: Yes: Regular Rate and Rhythm Respiratory: Yes: Regular, CTA Bilaterally Gastrointestinal: Yes: Normal Bowel Sounds, Soft Musculoskeletal: Yes: WNL Extremities: Yes: WNL Neurological: Yes: Alert, Oriented Psychiatric: Yes: Alert, Oriented Labs: CBC, BMP 09/20/18 07:00 09/20/18 07:00 INR, PTT INR 2.61 (0.82-1.09) H D 09/20/18 07:00 Assessment/Plan this patient who comes in with fever and chills and leukocytosis now feelign better repeat infection of the urine noted uti fever chills bph leukocytosis plan continue oral vanco complete 14 days treatment rest as per the team patient stable
[2018-09-20] MEDS: TAMSULOSIN HCL 0.4 MG CAP PO SCH (09:49)
[2018-09-20 14:28] VITALS: BP 136/65; PULSE 67; TEMP 98.3
[2018-09-20] MEDS: WARFARIN NA 5 MG, WARFARIN NA 2 MG PO SCH (18:29)
== END 2018-09-20 18:25 | disposition home or self-care (01) | DRG 872 ==
LOC: FER 15:10 → SUPCPDRO 15:10 → INTOOBSV 17:18 → FM/S 17:18 → OBSVTOIN 09-16 16:05
PROVIDERS: ADMIT Internal Medicine; ATTEND Nurse Practitioner Acute Care
DX: A41.89 Other specified sepsis (principal); A04.72 Enterocolitis due to Clostridium difficile, not specified as recurrent; D68.61 Antiphospholipid syndrome; N39.0 Urinary tract infection, site not specified; I25.10 Atherosclerotic heart disease of native coronary artery without angina pectoris; N40.0 Benign prostatic hyperplasia without lower urinary tract symptoms; E78.5 Hyperlipidemia, unspecified; R00.0 Tachycardia, unspecified; D72.829 Elevated white blood cell count, unspecified; N28.1 Cyst of kidney, acquired; I48.2 Chronic atrial fibrillation; R79.1 Abnormal coagulation profile; Z79.01 Long term (current) use of anticoagulants; Z95.1 Presence of aortocoronary bypass graft
CPT/HCPCS: 36415; 71045-TC-FY; 74176-TC; 74177-TC; 76775-TC; 80048; 80053; 81003; 82803; 83605; 83735; 84484; 85025; 85027; 85610; 85730; 87040; 87045; 87046; 87086; 87186; 87205; 87324; 87449; 87804; 93005; 99284-25; G0378; J0131; J1644; J7030

== ENCOUNTER 2018-10-06 11:25 | Inpatient (IN) | payer OTHER ==
--- NOTE | 2018-10-06 11:31 | PDOC ---
Attending Attestation - Resident Resident Name: Katia Josue - ED Attending Attestation I have performed the following: I have examined & evaluated the patient, The case was reviewed & discussed with the resident, I agree w/resident's findings & plan, Exceptions are as noted - HPI HPI: 10/06/18 14:21 83-year-old male with fever, dysuria, frequency, and urgency, body aches since yesterday. Recent hospitalization for urosepsis approximately 2 weeks ago. Urine culture initially grew Escherichia coli sensitive to cephalosporins. Subsequent urine culture grew Morganella species, 20-30,000 colonies which was relatively drug-resistant. He was subsequently treated with Zosyn for 5 days. Developed C. difficile and recently finished a ten-day course of oral vancomycin. His symptoms of bloating, mild cramping, and "toothpaste-like stool " are persistent. There is been no bloody mucus or watery diarrhea. Past medical history is significant for IN and subsequent four-vessel CABG in 2003, atrial fibrillation, antiphospholipid syndrome with multiple TIAs prior to treatment with warfarin, no further symptoms since anticoagulation. Lives independently with his , who is debilitated from lungs CTA and requires nursing care at home . Former smoker for 44 years, quit after IN and CABG. - Physicial Exam PE: 10/06/18 14:30 Physical exam reveals a blood pressure in the 100/60 range, sometimes dropping to 85/50, temperature 102 degrees. Lungs are clear. CV reveals irregularly irregular rhythm, but rate controlled. Abdomen is mildly distended but soft without mass tenderness organomegaly. Bowel sounds are normal. Skin is clear, no rash, adequate turgor and wet his membranes Neurological intact 10/06/18 14:31 - Medical Decision Making 10/06/18 14:26 Assessment: Probable urosepsis. Urinalysis has greater than 100 white cells, 20- 30 red cells, and positive nitrates. White blood count is 12.0. INR 3.5. Probably better on the high side as it is. BUN 22 with a normal creatinine. Cardiac enzymes negative. Plan: ID consult for antibiotic treatment of presumed urinary tract infection and possible persistent C. difficile. Patient's blood pressure is relatively low but otherwise he is hemodynamically stable and alert, oriented, in no acute distress. Admitted for further evaluation, ID consult, and continued observation.
--- NOTE | 2018-10-06 11:35 | PDOC ---
History of Present Illness - General Chief Complaint: Pain, Acute Stated Complaint: fever, joint pain Time Seen by Provider: 10/06/18 11:31 - History of Present Illness Initial Comments: 10/06/18 11:38 83 year-old male with a PMH significant for HTN, HLD, CAD s/p CABG x 4 (2003), afib on coumadin, BPH, antiphospholipd syndrome with recent admission for urosepsis and with subsequent Cdiff while in hospital, was discharged and completed his abx course approx 9 days ago and started developing a fever of Tmax 101F on the forehead and dysuria for the past 2-3 days. The patient has also had difficulty evacuating his bowels for the past 5 days and reports small passage of toothpaste consistency stool with some paleness. He denies blood in the urine or stool. He reports some abdominal pain in the RLQ and LUQ that is dull and which he has experienced since his admission to the hospital. He denies any cough, congestion, chest pain, nausea, vomiting. He has no other complaints at bedside. Past History - Past Medical History Allergies/Adverse Reactions: Allergies Allergy/AdvReac Type Severity Reaction Status Date / Time No Known Allergies Allergy Verified 10/06/18 11:27 Home Medications: Ambulatory Orders Lisinopril [Prinivil -] 10 mg PO HS 08/14/12 Simvastatin [Zocor -] 40 mg PO HS 08/14/12 Warfarin Sodium [Coumadin] 7 mg PO HS 08/14/12 Tamsulosin HCl 0.4 mg PO DAILY 09/05/18 Anemia: No Asthma: No Cancer: Yes (kidney mass removed) Cardiac Disorders: Yes (CA bypassx4 2003, afib, anti-phospholipid syndrome) CVA: No COPD: No CHF: No Dementia: No Diabetes: No GI Disorders: No Disorders: Yes (BPH) HTN: Yes Hypercholesterolemia: Yes Liver Disease: No Seizures: No Thyroid Disease: No Other medical history: c diff - Surgical History Abdominal Surgery: No Appendectomy: No Cardiac Surgery: Yes (CABG *4) Cholecystectomy: No Lung Surgery: No Neurologic Surgery: No Orthopedic Surgery: No - Suicide/Smoking/Psychosocial Hx Smoking Status: No Smoking History: Former smoker Have you smoked in the past 12 months: No Number of Cigarettes Smoked Daily: 0 If you are a former smoker, when did you quit?: 2002 Information on smoking cessation initiated: No Hx Alcohol Use: Yes (ocasional) Drug/Substance Use Hx: No Substance Use Type: None Hx Substance Use Treatment: No Review of Systems - Review of Systems Able to Perform ROS?: Yes Comments:: 10/06/18 12:47 GENERAL/CONSTITUTIONAL: + fever or chills. No weakness. HEAD, EYES, EARS, NOSE AND THROAT: No change in vision. No ear pain or discharge. No sore throat. CARDIOVASCULAR: No chest pain or shortness of breath RESPIRATORY: No cough, wheezing, or hemoptysis. GASTROINTESTINAL: No nausea, vomiting, diarrhea GENITOURINARY: + dysuria, frequency, or change in urination. MUSCULOSKELETAL: No joint or muscle swelling or pain. No neck or back pain. SKIN: No rash NEUROLOGIC: No headache, vertigo, loss of consciousness, or change in strength/ sensation. ENDOCRINE: No increased thirst. No abnormal weight change HEMATOLOGIC/LYMPHATIC: No anemia, easy bleeding, or history of blood clots. ALLERGIC/IMMUNOLOGIC: No hives or skin allergy. Is the patient limited Trinidadian proficient: No *Physical Exam - Vital Signs Last Vital Signs Temp Pulse Resp BP Pulse Ox 102.7 F H 90 16 115/55 L 95 10/06/18 11:26 10/06/18 11:26 10/06/18 11:26 10/06/18 11:26 10/06/18 11:26 - Physical Exam Comments: 10/06/18 12:46 GENERAL: Awake, alert, and fully oriented, in no acute distress HEAD: No signs of trauma, normocephalic, atraumatic EYES: EOMI, sclera anicteric, conjunctiva clear ENT: oropharynx clear without exudates. Moist mucosa NECK: Normal ROM, supple LUNGS: No distress, speaks full sentences, clear to auscultation bilaterally HEART: Regular rate and rhythm, normal S1 and S2, no murmurs, rubs or gallops, peripheral pulses normal and equal bilaterally. ABDOMEN: Soft, nontender, normoactive bowel sounds. No guarding, no rebound. No masses EXTREMITIES : Normal inspection, Normal range of motion, no edema. No clubbing or cyanosis. NEUROLOGICAL: Cranial nerves II through XII grossly intact. Normal speech, normal gait, no focal sensorimotor deficits SKIN: Hot, Dry, normal turgor, no rashes or lesions noted ED Treatment Course - LABORATORY CBC & Chemistry Diagram: 10/06/18 11:44 10/06/18 11:44 Medical Decision Making - Medical Decision Making 10/06/18 12:43 83 year-old male with a PMH significant for HTN, HLD, CAD s/p CABG x 4 (2003), afib on coumadin, BPH, antiphospholipd syndrome with recent admission for urosepsis and with subsequent Cdiff while in hospital, was discharged and completed his abx course approx 9 days ago and started developing a fever of Tmax 101F on the forehead and dysuria for the past 2-3 days. The patient has also had difficulty evacuating his bowels for the past 5 days and reports small passage of toothpaste consistency stool with some paleness. ED Course: ddx ibnlt: uti vs cdiff recurrence vs pna less liekly txoci megacolon as patient without acute new or worsening abdominal pain and profuse diarrhea less liekly endocarditits as pt without chest symptoms patient febrile w/u sepsis set tx ivf and tylenol wbx of 12 without left shift inr supratherapeutic-advise holding for 1 day BUN elevated from prior - prerenal main urine with positive nitrite, 3+ leuk esterase, > 100 urine wbc 10/06/18 13:04 patient reports that prior to his last cdiff episode he had similar symptoms as he does now and did not have typical profuse diarrhea considering this history pt will ikely need admission as the treatment for uti may worsen his risk of cdiff, if not also recurring. Case discussed with Adrian, admitting team HOME HELP AIDE will admit and call ID for approp abx selection considering cdiff risk. Patient admitted. *DC/Admit/Observation/Transfer Diagnosis at time of Disposition: UTI (urinary tract infection), C. difficile colitis - Discharge Dispostion Disposition: HOME Condition at time of disposition: Stable Decision to Admit order: Yes - Referrals Referrals: North Slade MS [Primary Care Provider] - - Patient Instructions - Post Discharge Activity
[2018-10-06] MEDS ORDERED: ACETAMINOPHEN 1000 MG/100 ML VIAL (NON FORMULARY) IVPB ONE (11:49)
[2018-10-06] MEDS ORDERED: ACETAMINOPHEN INJECTION 100 ML IVPB ONE (11:51)
[2018-10-06 12:03] LABS: HEMATOCRIT 36.9 % (35.4-49); HEMOGLOBIN 11.8 GM/dl (11.7-16.9); MCH 29.2 pg (25.7-33.7); MEAN CELL VOLUME 91.3 fl (80-96); MEAN PLT VOLUME 9.5 fl (7.5-11.1); PLATELET COUNT 157 K/MM3 (134-434); RBC 4.04 M/mm3 (4.00-5.60); RDW 14.1 % (11.9-15.9)
[2018-10-06 12:07] LABS: INR 3.51 (0.82-1.09); PROTHROMBIN TIME (PATIENT) 38.3 SEC (10.2-13.0)
[2018-10-06 12:10] LABS: ALBUMIN 3.5 g/dl (3.4-5.0); BILIRUBIN,TOTAL 1.1 mg/dl (0.2-1); CALCIUM 9.1 mg/dl (8.5-10); CREATININE 1.1 mg/dl (0.55-1.3); POTASSIUM 4.5 mmol/L (3.5-5.1); TOT PROT 6.8 g/dl (6.4-8.2)
[2018-10-06 12:14] LABS: ACTIVATED PTT 48.9 SECONDS (25.2-36.5)
[2018-10-06 12:23] LABS: PLATELET ESTIMATE ADEQUATE
[2018-10-06] MEDS ORDERED: SODIUM CHLORIDE 1,000 ML IV SCH (12:30)
--- NOTE | 2018-10-06 13:42 | HP ---
CHIEF COMPLAINT: Frequency, shaking chills PCP: Dr. North Slade, [facility] office, [facility] HISTORY OF PRESENT ILLNESS: 83 year-old male with a PMH significant for HTN, HLD, CAD s/p CABG x 4 (2003), afib on coumadin, BPH, and antiphospholipd syndrome. Recently hospitalized at [place] 09/16-09/20/18 for E.coli/morganella UTI and c.diff colitis. Completed 14-day course of PO vanc ~09/28. He presents to the ED with urinary frequency x 2 days. Last night he developed shaking chills. Over the past 24 hours has also been experiencing abdominal pain that he describes as an "ache" that goes circumferentially around his mid-section. Patient notes that since diagnosed with c.diff, his stools have never returned to fully formed, the stools are brown, thin, "like toothpaste" and he has had a lot of gas. Patient denies hematuria, melena, hematochezia. Patient states his has recurrent UTIs, is being treated now for [address] Slade. ER course was notable for: (1) T102.7, WBC 12.0, pyuria (2) INR 3.51 (3) NS x 2.5L, Zosyn x 1, PO Vanc x 1 Recent Travel: No PAST MEDICAL HISTORY: Hypertension Hyperlipidemia Coronary artery disease Atrial fibrillation BPH Antiphospholipid syndrome Recurrent UTI C. difficile (08/2018-first episode) PAST SURGICAL HISTORY: Coronary bypass x 4 Social History: Smoking: former; chews Nicoret[place] Alcohol: occasional Drugs: no Family History: Allergies No Known Allergies Allergy (Verified 10/06/18 11:27) HOME MEDICATIONS: Home Medications Medication Instructions Recorded Lisinopril [Prinivil -] 10 mg PO HS 08/14/12 Simvastatin [Zocor -] 40 mg PO HS 08/14/12 Warfarin Sodium [Coumadin] 7 mg PO HS 08/14/12 Tamsulosin HCl 0.4 mg PO DAILY 09/05/18 REVIEW OF SYSTEMS CONSTITUTIONAL: +shaking chills Absent: fever, diaphoresis, generalized weakness, malaise, loss of appetite, weight change HEENT: Absent: rhinorrhea, nasal congestion, throat pain, throat swelling, difficulty swallowing, mouth swelling, ear pain, eye pain, visual changes CARDIOVASCULAR: Absent: chest pain, syncope, palpitations, irregular heart rate, lightheadedness , peripheral edema RESPIRATORY: Absent: cough, shortness of breath, dyspnea with exertion, orthopnea, wheezing, stridor, hemoptysis GASTROINTESTINAL: +abdominal pain Absent: abdominal pain, abdominal distension, nausea, vomiting, diarrhea, constipation, melena, hematochezia GENITOURINARY: +frequency Absent: dysuria, urgency, hesitancy, hematuria, flank pain, genital pain MUSCULOSKELETAL: Absent: myalgia, arthralgia, joint swelling, back pain, neck pain SKIN: Absent: rash, itching, pallor HEMATOLOGIC/IMMUNOLOGIC: Absent: easy bleeding, easy bruising, lymphadenopathy, frequent infections ENDOCRINE: Absent: unexplained weight gain, unexplained weight loss, heat intolerance, cold intolerance NEUROLOGIC: Absent: headache, focal weakness or paresthesias, dizziness, unsteady gait, seizure, mental status changes, bladder or bowel incontinence PSYCHIATRIC: Absent: anxiety, depression, suicidal or homicidal ideation, hallucinations. PHYSICAL EXAMINATION Vital Signs - 24 hr 10/06/18 11:26 Temperature 102.7 F H Pulse Rate 90 Respiratory 16 Rate Blood Pressure 115/55 L O2 Sat by Pulse 95 Oximetry (%) GENERAL: Awake, alert, and fully oriented. Pale. Weak-appearing. Dry mucous membranes. LUNGS: Breath sounds equal, clear to auscultation bilaterally. No wheezes, and no crackles. No accessory muscle use. HEART: Regular rate and rhythm, normal S1 and S2 without murmur, rub or gallop. ABDOMEN: Soft, nontender, not distended, normoactive bowel sounds, no guarding, no rebound tenderness MUSCULOSKELETAL: Normal range of motion at all joints. No bony deformities or tenderness. UPPER EXTREMITIES: 2+ pulses, warm, well-perfused. No cyanosis. No clubbing. No peripheral edema. LOWER EXTREMITIES: 2+ pulses, warm, well-perfused. No calf tenderness. No peripheral edema. NEUROLOGICAL: Cranial nerves II-XII intact. Normal speech. Normal gait. Laboratory Results - last 24 hr 10/06/18 10/06/18 10/06/18 11:44 11:44 11:44 WBC 12.0 H RBC 4.04 Hgb 11.8 Hct 36.9 MCV 91.3 MCH 29.2 MCHC 32.0 RDW 14.1 Plt Count 157 D MPV 9.5 D Absolute Neuts (auto) 9.9 Neutrophils % No Result Required. Neutrophils % (Manual) 81.0 Lymphocytes % No Result Required. Lymphocytes % (Manual) 11.0 Monocytes % (Manual) 8 Platelet Estimate Adequate PT with INR 38.3 H INR 3.51 H D PTT (Actin FS) 48.9 H Sodium 138 Potassium 4.5 Chloride 106 Carbon Dioxide 22 Anion Gap 10 BUN 22 H Creatinine 1.1 Est GFR (CKD-EPI)AfAm 71.57 Est GFR (CKD-EPI)NonAf 61.75 Random Glucose 95 Calcium 9.1 Total Bilirubin 1.1 H AST 17 ALT 19 Alkaline Phosphatase 119 H D Troponin I Total Protein 6.8 Albumin 3.5 Urine Color Urine Appearance Urine pH Urine Protein Urine Glucose (UA) Urine Ketones Urine Blood Urine Nitrite Urine Bilirubin Urine Urobilinogen Ur Leukocyte Esterase Urine RBC Urine WBC Urine Bacteria 10/06/18 10/06/18 11:58 12:17 WBC RBC Hgb Hct MCV MCH MCHC RDW Plt Count MPV Absolute Neuts (auto) Neutrophils % Neutrophils % (Manual) Lymphocytes % Lymphocytes % (Manual) Monocytes % (Manual) Platelet Estimate PT with INR INR PTT (Actin FS) Sodium Potassium Chloride Carbon Dioxide Anion Gap BUN Creatinine Est GFR (CKD-EPI)AfAm Est GFR (CKD-EPI)NonAf Random Glucose Calcium Total Bilirubin AST ALT Alkaline Phosphatase Troponin I < 0.03 Total Protein Albumin Urine Color Yellow Urine Appearance Cloudy Urine pH 6.0 Urine Protein 2+ H Urine Glucose (UA) Negative Urine Ketones Negative Urine Blood 2+ H Urine Nitrite Positive Urine Bilirubin Negative Urine Urobilinogen 0.2 Ur Leukocyte Esterase 3+ Urine RBC 20-40 Urine WBC >100 Urine Bacteria Many ASSESSMENT/PLAN 83 year-old male with a PMH significant for HTN, HLD, CAD s/p CABG x 4 (2003), afib on coumadin, BPH, and antiphospholipd syndrome. Recently hospitalized at [place] 09/16-09/20/18 for E.coli/morganella UTI and c.diff colitis. Placed on observation for sepsis. Sepsis likely secondary to UTI --T102.7, WBC 12k, pyuria, abdominal pain; lactic acid wnl --NS x 2.5L in ED --recent UTI (+) E.coli, (+) Morganella --cultures collected and sent --start Zosyn 3.375 q6h Abdominal pain r/o C. difficile colitis --exam is benign --first time diagnosed with c.diff was during recent hospitalization; completed 14 days of PO vanc on or about 09/28 --CTAP pending --discussed with Dr. Howard, start PO vanc Hypertension --BP borderline low, giving fluids, hold losartan for now Hyperlipidemia --hold statin Coronary artery disease --not on beta samir or ASA Atrial fibrillation --rate is controlled, not on rate-controlling agent --INR 3.51, hold warfarin Antiphospholipid syndrome BPH --continue tamsulosin Left kidney upper pole cyst --patient follows with a urologist FEN Fluids: NS @ 125mL/hr Electrolytes: replete as indicated Nutrition: NPO until CTAP is back DVT prophylaxis: INR supratherapeutic @ 3.51, hold coumadin; check INR in am Dispo: continues to require observation. Full code. Visit type - Emergency Visit Emergency Visit: Yes ED Registration Date: 10/06/18 Care time: The patient presented to the Emergency Department on the above date and was hospitalized for further evaluation of their emergent condition. - New Patient This patient is new to me today: Yes Date on this admission: 10/06/18 - Critical Care Critical Care patient: No
[2018-10-06] MEDS ORDERED: SODIUM CHLORIDE 1,000 ML IV STA (14:03)
[2018-10-06] MEDS ORDERED: SODIUM CHLORIDE 500 ML IV STA (14:17)
[2018-10-06] MEDS ORDERED: PIPERACILLIN/TAZOBACTAM 3.375 GM VIAL IVPB ONE ×2 (14:27→21:01)
[2018-10-06] MEDS: PIPERACILLIN/TAZOB 3.375 GM 3.375 GM in DEXTROSE 5%-WATER - 50 ML IVPB SCH ×2 (14:47→21:09)
[2018-10-06 15:01] VITALS: BMI 27.3
[2018-10-06] MEDS: VANCOMYCIN 250 MG/5 ML ORAL SOLUTION PO SCH ×3 (15:46→22:02)
[2018-10-06] MEDS: SODIUM CHLORIDE 1,000 ML IV SCH (18:11)
[2018-10-06] MEDS ORDERED: DEXTROSE 5%-WATER - 50 ML IVPB ONE (21:01)
[2018-10-06] MEDS: ACETAMINOPHEN 1000 MG/100 ML VIAL (NON FORMULARY) IVPB PRN (21:15)
[2018-10-06] MEDS ORDERED: REFRIGERATED ANITBIOTICS ONE (21:45)
[2018-10-07] MEDS ORDERED: PIPERACILLIN/TAZOBACTAM 3.375 GM VIAL IVPB ONE ×4 (02:17→21:09)
[2018-10-07] MEDS ORDERED: DEXTROSE 5%-WATER - 50 ML IVPB ONE ×4 (02:17→21:09)
[2018-10-07] MEDS: PIPERACILLIN/TAZOB 3.375 GM 3.375 GM in DEXTROSE 5%-WATER - 50 ML IVPB SCH ×3 (02:53→18:30)
[2018-10-07] MEDS: TAMSULOSIN HCL 0.4 MG CAP PO SCH (08:04)
--- NOTE | 2018-10-07 08:59 | PN ---
Physical Exam: SUBJECTIVE: Patient seen and examined pt at bedside. Pt c/o generalized aches and pain, abdomen, lower back and legs. Denies cp,sob , palpitations, N/V/D or urinary symptoms. OBJECTIVE: Vital Signs Period Temp Pulse Resp BP Sys/Bragg Pulse Ox Last 24 Hr 97.6 F-102.7 F 63-91 16-18 85-134/49-76 93-97 GENERAL: The patient is awake, alert, and fully oriented, in no acute distress. HEAD: Normal with no signs of trauma. EYES: PERRL, extraocular movements intact, sclera anicteric, conjunctiva clear. No ptosis. ENT: Ears normal, nares patent, oropharynx clear without exudates, moist mucous membranes. NECK: Trachea midline, full range of motion, supple. LUNGS: Breath sounds equal, clear to auscultation bilaterally, no wheezes, no crackles, no accessory muscle use. HEART: Regular rate and rhythm, S1, S2 without murmur, rub or gallop. ABDOMEN: Soft, non-tender, mildly distended distended, normoactive bowel sounds , no guarding, no rebound, no hepatosplenomegaly, no masses. EXTREMITIES: 2+ pulses, warm, well-perfused, no edema. NEUROLOGICAL: Cranial nerves II through XII grossly intact. Normal speech, gait not observed. PSYCH: Normal mood, normal affect. SKIN: Warm, dry, normal turgor, no rashes or lesions noted Laboratory Results - last 24 hr 10/06/18 10/06/18 10/06/18 11:40 11:44 11:44 WBC 12.0 H RBC 4.04 Hgb 11.8 Hct 36.9 MCV 91.3 MCH 29.2 MCHC 32.0 RDW 14.1 Plt Count 157 D MPV 9.5 D Absolute Neuts (auto) 9.9 Neutrophils % No Result Required. Neutrophils % (Manual) 81.0 Lymphocytes % No Result Required. Lymphocytes % (Manual) 11.0 Monocytes % (Manual) 8 Platelet Estimate Adequate PT with INR 38.3 H INR 3.51 H D PTT (Actin FS) 48.9 H Sodium Potassium Chloride Carbon Dioxide Anion Gap BUN Creatinine Est GFR (CKD-EPI)AfAm Est GFR (CKD-EPI)NonAf Random Glucose Lactic Acid Calcium Total Bilirubin AST ALT Alkaline Phosphatase Troponin I Total Protein Albumin Lipase 112 Urine Color Urine Appearance Urine pH Urine Protein Urine Glucose (UA) Urine Ketones Urine Blood Urine Nitrite Urine Bilirubin Urine Urobilinogen Ur Leukocyte Esterase Urine RBC Urine WBC Urine Bacteria 10/06/18 10/06/18 10/06/18 11:44 11:44 11:58 WBC RBC Hgb Hct MCV MCH MCHC RDW Plt Count MPV Absolute Neuts (auto) Neutrophils % Neutrophils % (Manual) Lymphocytes % Lymphocytes % (Manual) Monocytes % (Manual) Platelet Estimate PT with INR INR PTT (Actin FS) Sodium 138 Potassium 4.5 Chloride 106 Carbon Dioxide 22 Anion Gap 10 BUN 22 H Creatinine 1.1 Est GFR (CKD-EPI)AfAm 71.57 Est GFR (CKD-EPI)NonAf 61.75 Random Glucose 95 Lactic Acid 1.1 Calcium 9.1 Total Bilirubin 1.1 H AST 17 ALT 19 Alkaline Phosphatase 119 H D Troponin I Total Protein 6.8 Albumin 3.5 Lipase Urine Color Yellow Urine Appearance Cloudy Urine pH 6.0 Urine Protein 2+ H Urine Glucose (UA) Negative Urine Ketones Negative Urine Blood 2+ H Urine Nitrite Positive Urine Bilirubin Negative Urine Urobilinogen 0.2 Ur Leukocyte Esterase 3+ Urine RBC 20-40 Urine WBC >100 Urine Bacteria Many 10/06/18 12:17 WBC RBC Hgb Hct MCV MCH MCHC RDW Plt Count MPV Absolute Neuts (auto) Neutrophils % Neutrophils % (Manual) Lymphocytes % Lymphocytes % (Manual) Monocytes % (Manual) Platelet Estimate PT with INR INR PTT (Actin FS) Sodium Potassium Chloride Carbon Dioxide Anion Gap BUN Creatinine Est GFR (CKD-EPI)AfAm Est GFR (CKD-EPI)NonAf Random Glucose Lactic Acid Calcium Total Bilirubin AST ALT Alkaline Phosphatase Troponin I < 0.03 Total Protein Albumin Lipase Urine Color Urine Appearance Urine pH Urine Protein Urine Glucose (UA) Urine Ketones Urine Blood Urine Nitrite Urine Bilirubin Urine Urobilinogen Ur Leukocyte Esterase Urine RBC Urine WBC Urine Bacteria Active Medications Generic Name Dose Route Start Last Admin Trade Name Freq PRN Reason Stop Dose Admin Acetaminophen 1,000 mg 10/06/18 17:48 10/06/18 21:15 Ofirmev Injection - IVPB 1,000 mg Q6H PRN Administration FEVER Enoxaparin Sodium 40 mg 10/07/18 10:00 Lovenox - SQ DAILY IRINEO Piperacillin Sod/Tazobactam 50 mls @ 100 mls/hr 10/07/18 15:00 Sod 3.375 gm/ Dextrose IVPB Q6H-IV IRINEO Protocol Piperacillin Sod/Tazobactam 50 mls @ 100 mls/hr 10/06/18 14:30 10/07/18 02:53 Sod 3.375 gm/ Dextrose IVPB 10/07/18 09:29 100 mls/hr Q6H-IV IRINEO Administration Protocol Sodium Chloride 1,000 mls @ 100 mls/hr 10/06/18 17:30 10/06/18 18:11 Normal Saline - IV 100 mls/hr ASDIR IRINEO Administration Tamsulosin HCl 0.4 mg 10/07/18 08:30 10/07/18 08:04 Flomax - PO 0.4 mg DAILY@0830 IRINEO Administration Vancomycin HCl 250 mg 10/06/18 14:00 10/06/18 22:02 Vancomycin Oral Solution PO 250 mg QID IRINEO Administration CxR: No acute pathology BC- pending Urine culture: showed contamination ASSESSMENT/PLAN: 83 year-old male with a PMH significant for HTN, HLD, CAD s/p CABG x 4 (2003), afib on coumadin, BPH, and antiphospholipd syndrome. Recently hospitalized at [place] 09/16-09/20/18 for E.coli/morganella UTI and c.diff colitis. Now placed on observation for sepsis. *Sepsis likely secondary to UTI, recent UTI (+) E.coli, (+) Morganella -Max T102.7,now trending down 100.8 this AM _ WBC 12k,normalized, lactic acid wnl - s/p NS x 2.5L in ED - will cont on Zosyn -cultures collected, reports pending - Urine culture contaminated - will repeat Urine culture - ID following *Abdominal pain r/o C. difficile colitis - CT abdomen: GB stones, ? recently passed calculus or infectious, ? Pyelonephritis - still with low grade fever - urology consulted - will cont on abx - recent C- Diff completed 14 days of PO vanc on or about 09/28 - as per Dr. Howard, will cont on PO vanc *Hypertension- initially, low BP, now improved -on IVF - will hold off on Lisinopril and monitor BP closely *Hyperlipidemia -hold statin until PO idalia well *Coronary artery disease -not on beta samir or ASA *Atrial fibrillation -rate is controlled, not on rate-controlling agent -supratherapeutic INR, will hold off Coumadin and monitor *Antiphospholipid syndrome *BPH -continue tamsulosin *Left kidney upper pole cyst -patient follows with a urologist FEN Fluids: NS @ 125mL/hr Electrolytes: replete as indicated Nutrition:will advance diet as tolerated. Low mg and Phosphorus - replaced DVT prophylaxis: INR supratherapeutic Dispo: continues to require observation. Full code. Visit type - Emergency Visit Emergency Visit: Yes ED Registration Date: 10/06/18 Care time: The patient presented to the Emergency Department on the above date and was hospitalized for further evaluation of their emergent condition. - New Patient This patient is new to me today: Yes Date on this admission: 10/07/18 - Critical Care Critical Care patient: No
[2018-10-07] MEDS ORDERED: REFRIGERATED ANITBIOTICS ONE ×2 (09:03→13:57)
[2018-10-07 09:13] LABS: BASO % 0.2 % (0-2.0); EOS % 0.1 % (0-4.5); HEMATOCRIT 32.4 % (35.4-49); HEMOGLOBIN 10.7 GM/dl (11.7-16.9); LYMPH % 9.2 % (8-40); MCHC 32.9 g/dl (32.0-35.9); MEAN PLT VOLUME 10.3 fl (7.5-11.1); MONO % 10.3 % (3.8-10.2); NEUT % 80.2 % (42.8-82.8); PLATELET COUNT 98 K/MM3 (134-434); RBC 3.56 M/mm3 (4.00-5.60); WHITE BLOOD COUNT 10.1 K/mm3 (4.0-10.8)
[2018-10-07 09:19] LABS: INR 3.86 (0.82-1.09); PROTHROMBIN TIME (PATIENT) 42.1 SEC (10.2-13.0)
[2018-10-07] MEDS: ACETAMINOPHEN 1000 MG/100 ML VIAL (NON FORMULARY) IVPB PRN ×2 (09:22→16:04)
[2018-10-07] MEDS: VANCOMYCIN 250 MG/5 ML ORAL SOLUTION PO SCH ×2 (09:23→13:59)
[2018-10-07] MEDS: ENOXAPARIN NA (PORCINE) 40 MG/0.4 ML DISP.SYRIN SQ SCH (09:24)
[2018-10-07 09:28] LABS: BILIRUBIN,TOTAL 1.3 mg/dl (0.2-1); CALCIUM 8.4 mg/dl (8.5-10); CREATININE 1.1 mg/dl (0.55-1.3); MAGNESIUM 1.6 mg/dL (1.8-2.4); PHOSPHOROUS 2.1 mg/dl (2.5-4.9); POTASSIUM 4.6 mmol/L (3.5-5.1); TOT PROT 5.7 g/dl (6.4-8.2)
[2018-10-07] MEDS: MAGNESIUM OXIDE 400 MG TABLET (FP) PO SCH ×2 (11:33→21:15)
[2018-10-07] MEDS: NAPH,MB-DB/K PH,MBDB POWDER PACKET PO SCH (11:33)
--- NOTE | 2018-10-07 12:09 | CON.ID ---
Consult - History of Present Illness History of Present Illness: 83 y.o. male with PMH of BPH, recurrent UTIs, AFIB, CAD s/p CABG x 4, Antiphospholipid syndrome, HTN, HLD treated for E.coli/Morganella UTIs one month ago and completed treatment for C. difficile colitis 1 week ago presents with fever (102.4F), chills, and persistent "pasty" stools with abdominal ache/ flatulence. He states that last week he had dysuria but not currently. Pt has been following with urology and states she has been delaying intervention for enlarged prostate and has had multiple UTIs. In the ER noted to have mild elevation in wbc, pyuria, and today reports 4 unformed BMs. Otherwise denies SOB /cough, H/A, rash, or any other specific symptoms. - History Source History Provided By: Patient, Medical Record Limitations to Obtaining History: No Limitations - Past Medical History Cardio/Vascular: Yes: AFIB, CAD, HTN, Hyperlipdemia Renal/: Yes: BPH, UTI Heme/Onc: Yes: Hypercoaguable State - Past Surgical History Past Surgical History: Yes: CABG - Alcohol/Substance Use Hx Alcohol Use: Yes (ocasional) - Smoking History Smoking history: Former smoker Have you smoked in the past 12 months: No Aproximately how many cigarettes per day: 0 If you are a former smoker, when did you quit?: 2002 - Social History History of Recent Travel: No Home Medications - Allergies Allergies/Adverse Reactions: Allergies Allergy/AdvReac Type Severity Reaction Status Date / Time No Known Allergies Allergy Verified 10/06/18 11:27 - Home Medications Home Medications: Ambulatory Orders Lisinopril [Prinivil -] 10 mg PO HS 08/14/12 Simvastatin [Zocor -] 40 mg PO HS 08/14/12 Warfarin Sodium [Coumadin] 7 mg PO HS 08/14/12 Tamsulosin HCl 0.4 mg PO DAILY 09/05/18 Review of Systems - Review of Systems Constitutional: reports: Chills, Fever, Weakness Eyes: reports: No Symptoms HENT: reports: No Symptoms Neck: reports: No Symptoms Cardiovascular: reports: No Symptoms Respiratory: reports: No Symptoms Gastrointestinal: reports: Bloating, Diarrhea, Other (abdominal discomfort) Genitourinary: reports: Frequency Musculoskeletal: reports: No Symptoms Integumentary: reports: No Symptoms Neurological: reports: No Symptoms Endocrine: reports: No Symptoms Hematology/Lymphatic: reports: No Symptoms Psychiatric: reports: No Symptoms Physical Exam Vital Signs: Vital Signs Temperature 100.4 F H 10/07/18 09:38 Pulse Rate 85 10/07/18 09:38 Respiratory Rate 18 10/07/18 09:38 Blood Pressure 137/70 10/07/18 09:38 O2 Sat by Pulse Oximetry (%) 93 L 10/07/18 06:00 Constitutional: Yes: No Distress, Calm Eyes: Yes: Conjunctiva Clear, EOM Intact HENT: Yes: Atraumatic Neck: Yes: Supple Cardiovascular: Yes: Pulse Irregular Respiratory: Yes: CTA Bilaterally Gastrointestinal: Yes: Normal Bowel Sounds, Soft Renal/: Yes: WNL Musculoskeletal: Yes: WNL Extremities: Yes: WNL Edema: No Integumentary: Yes: WNL Neurological: Yes: Alert, Oriented Psychiatric: Yes: Alert Labs: CBC, BMP 10/07/18 07:30 10/07/18 07:30 Microbiology 10/06/18 11:40 Blood - Peripheral Venous Blood Culture - Preliminary NO GROWTH OBTAINED AFTER 24 HOURS, INCUBATION TO CONTINUE FOR 4 DAYS. 10/06/18 11:45 Blood - Peripheral Venous Blood Culture - Preliminary NO GROWTH OBTAINED AFTER 24 HOURS, INCUBATION TO CONTINUE FOR 4 DAYS. 10/06/18 15:30 Stool Clostridioides difficile Antigen - Final 10/06/18 15:30 Stool Clostridioides difficile Toxin Assay - Final 10/06/18 11:44 Urine - Urine Clean Catch Urine Culture - Final Contaminated: Please Repeat U/A: 3+ LE, wbc >100, +bacteria many Imaging - Results Cat Scan: Report Reviewed (periureteral/perinephric stranding, possible pyelonephritis, ?passed calculus) Problem List - Problems (1) C. difficile colitis Code(s): A04.72 - ENTEROCOLITIS D/T CLOSTRIDIUM DIFFICILE, NOT SPCF RECUR (2) CAD (coronary artery disease) Code(s): I25.10 - ATHSCL HEART DISEASE OF [place] CORONARY ARTERY W/O ANG PCTRS (3) Chronic a-fib Code(s): I48.2 - CHRONIC ATRIAL FIBRILLATION (4) Fever Code(s): R50.9 - FEVER, UNSPECIFIED Qualifiers: Fever type: unspecified Qualified Code(s): R50.9 - Fever, unspecified (5) HTN (hypertension) Code(s): I10 - ESSENTIAL (PRIMARY) HYPERTENSION (6) Sepsis Code(s): A41.9 - SEPSIS, UNSPECIFIED ORGANISM Qualifiers: Sepsis type: sepsis due to unspecified organism Qualified Code(s): A41.9 - Sepsis, unspecified organism (7) Supratherapeutic INR Code(s): R79.1 - ABNORMAL COAGULATION PROFILE Assessment/Plan 83 y.o. male with PMH of BPH, recurrent UTIs, AFIB, CAD s/p CABG x 4, Antiphospholipid syndrome, HTN, HLD treated for E. coli/Morganella UTI in August and for C. difficile colitis (Vancomycin PO x 14d completed one week ago) presenting with fever/leukocytosis/chills and persistent, frequent unformed stools with abdominal discomfort and bloating. CT scan/labs reviewed Pyelonephritis Sepsis Diarrhea with recent C. difficile colitis BPH Hx of recurrent UTIs AFIB CAD Antiphospholipid syndrome HTN HLD -- on Zosyn empirically, continue Vancomycin PO -- repeat Urine culture (initial contaminated) -- Blood cultures neg 24 hrs -- Pt currently with low grade fever, wbc normal -- continue monitor temp trend -- on contact precautions, handwashing -- Urology f/u Will follow Thank you
--- NOTE | 2018-10-07 12:25 | EKG ---
Test Reason : Blood Pressure : / mmHG Vent. Rate : 094 BPM Atrial Rate : 288 BPM P-R Int : 000 ms QRS Dur : 094 ms QT Int : 354 ms P-R-T Axes : 000 122 187 degrees QTc Int : 442 ms ATRIAL FIBRILLATION WITH PREMATURE VENTRICULAR OR ABERRANTLY CONDUCTED COMPLEXES LOW VOLTAGE QRS LATERAL INFARCT , AGE UNDETERMINED ABNORMAL ECG WHEN COMPARED WITH ECG OF 14-SEP-2018 15:49, QRS AXIS SHIFTED RIGHT LATERAL INFARCT IS NOW PRESENT T WAVE INVERSION NOW EVIDENT IN LATERAL LEADS Confirmed by TANNER JIN MD ([id number]) on 10/07/2018 12:25:17 PM Referred By: LEONELA POOL Confirmed By:TANNER JIN MD
[2018-10-07] MEDS: SODIUM CHLORIDE 1,000 ML IV SCH (18:30)
[2018-10-07] MEDS ORDERED: FAMOTIDINE 20 MG TABLET PO ONE (21:26)
[2018-10-08] MEDS: ACETAMINOPHEN 1000 MG/100 ML VIAL (NON FORMULARY) IVPB PRN (00:44)
[2018-10-08] MEDS: PIPERACILLIN/TAZOB 3.375 GM 3.375 GM in DEXTROSE 5%-WATER - 50 ML IVPB SCH ×4 (02:22→21:59)
[2018-10-08 08:33] LABS: BASO % 0.1 % (0-2.0); HEMATOCRIT 31.4 % (35.4-49); HEMOGLOBIN 10.4 GM/dl (11.7-16.9); MCHC 33.1 g/dl (32.0-35.9); MEAN CELL VOLUME 90.4 fl (80-96); MEAN PLT VOLUME 9.9 fl (7.5-11.1); MONO % 9.3 % (3.8-10.2); NEUT % 78.6 % (42.8-82.8); PLATELET COUNT 103 K/MM3 (134-434); RBC 3.47 M/mm3 (4.00-5.60); RDW 14.1 % (11.9-15.9); WHITE BLOOD COUNT 8.4 K/mm3 (4.0-10.8)
[2018-10-08 08:42] LABS: INR 3.82 (0.82-1.09); PROTHROMBIN TIME (PATIENT) 41.7 SEC (10.2-13.0)
[2018-10-08 08:43] LABS: ALBUMIN 2.7 g/dl (3.4-5.0); BILIRUBIN,TOTAL 0.9 mg/dl (0.2-1); CALCIUM 8.5 mg/dl (8.5-10); CREATININE 1.1 mg/dl (0.55-1.3); POTASSIUM 4.3 mmol/L (3.5-5.1); TOT PROT 5.7 g/dl (6.4-8.2)
[2018-10-08] MEDS: TAMSULOSIN HCL 0.4 MG CAP PO SCH (09:30)
[2018-10-08] MEDS ORDERED: PIPERACILLIN/TAZOBACTAM 3.375 GM VIAL IVPB ONE ×3 (10:23→20:54)
[2018-10-08] MEDS ORDERED: DEXTROSE 5%-WATER - 50 ML IVPB ONE ×3 (10:24→20:54)
[2018-10-08] MEDS: MAGNESIUM OXIDE 400 MG TABLET (FP) PO SCH ×2 (10:32→21:59)
[2018-10-08] MEDS: ENOXAPARIN NA (PORCINE) 40 MG/0.4 ML DISP.SYRIN SQ SCH (10:32)
[2018-10-08] MEDS: NAPH,MB-DB/K PH,MBDB POWDER PACKET PO SCH (10:32)
--- NOTE | 2018-10-08 12:32 | PN ---
Progress Note, Physician - Current Medication List Current Medications: Active Medications Enoxaparin Sodium (Lovenox -) 40 mg SQ DAILY [facility] Last Admin: 10/08/18 10:32 Dose: 40 mg Piperacillin Sod/Tazobactam (Sod 3.375 gm/ Dextrose) 50 mls @ 100 mls/hr IVPB Q6H-IV IRINEO; Protocol Last Admin: 10/08/18 10:31 Dose: 100 mls/hr Sodium Chloride (Normal Saline -) 1,000 mls @ 100 mls/hr IV ASDIR IRINEO Last Admin: 10/07/18 18:30 Dose: 100 mls/hr Magnesium Oxide (Mag-Ox -) 400 mg PO BID [facility] Last Admin: 10/08/18 10:32 Dose: 400 mg Potassium Phos/Sodium Phos (Phos-Nak Packet -) 1 packet PO DAILY [facility] Last Admin: 10/08/18 10:32 Dose: 1 packet Tamsulosin HCl (Flomax -) 0.4 mg PO DAILY@0830 [facility] Last Admin: 10/08/18 09:30 Dose: 0.4 mg - Objective Vital Signs: Vital Signs Temperature 98.5 F 10/08/18 10:00 Pulse Rate 73 10/08/18 10:00 Respiratory Rate 18 10/08/18 10:00 Blood Pressure 148/94 10/08/18 10:00 O2 Sat by Pulse Oximetry (%) 95 10/08/18 08:28 Labs: CBC, BMP 10/08/18 07:03 10/08/18 07:03 INR, PTT INR 3.82 (0.82-1.09) H 10/08/18 07:03
[2018-10-08] MEDS ORDERED: MAGNESIUM SULF 50% (8.12 MEQ/2 ML-1 GM VIAL) IVPB ONE (12:33)
[2018-10-08] MEDS ORDERED: MAGNESIUM 1GM/D5W - 1 GM/100 ML IVPB IVPB ONE (13:30)
--- NOTE | 2018-10-08 15:48 | PN ---
Physical Exam: SUBJECTIVE: Patient seen and examined. Feels better, no episodes of chills. Agreeable to seeing urologist. OBJECTIVE: Vital Signs Period Temp Pulse Resp BP Sys/Bragg Pulse Ox Last 24 Hr 97.9 F-100 F 73-83 18-18 101-153/57-94 95-97 GENERAL: Awake, alert, and fully oriented. LUNGS: Breath sounds equal, clear to auscultation bilaterally. No wheezes, and no crackles. No accessory muscle use. HEART: Regular rate and rhythm, normal S1 and S2 without murmur, rub or gallop. ABDOMEN: Soft, nontender, not distended, normoactive bowel sounds, no guarding, no rebound tenderness MUSCULOSKELETAL: Normal range of motion at all joints. No bony deformities or tenderness. UPPER EXTREMITIES: 2+ pulses, warm, well-perfused. No cyanosis. No clubbing. No peripheral edema. LOWER EXTREMITIES: 2+ pulses, warm, well-perfused. No calf tenderness. No peripheral edema. NEUROLOGICAL: Cranial nerves II-XII intact. Normal speech. Normal gait. Laboratory Results - last 24 hr 10/08/18 10/08/18 10/08/18 07:03 07:03 07:03 WBC 8.4 RBC 3.47 L Hgb 10.4 L Hct 31.4 L MCV 90.4 MCH 30.0 MCHC 33.1 RDW 14.1 Plt Count 103 L MPV 9.9 Absolute Neuts (auto) 6.6 Neutrophils % 78.6 Lymphocytes % 11.0 Monocytes % 9.3 Eosinophils % 1.0 D Basophils % 0.1 PT with INR 41.7 H INR 3.82 H Sodium 137 Potassium 4.3 Chloride 109 H Carbon Dioxide 20 L Anion Gap 8 BUN 13 Creatinine 1.1 Est GFR (CKD-EPI)AfAm 71.57 Est GFR (CKD-EPI)NonAf 61.75 Random Glucose 83 Calcium 8.5 Total Bilirubin 0.9 AST 15 ALT 17 Alkaline Phosphatase 98 D Total Protein 5.7 L Albumin 2.7 L Active Medications Generic Name Dose Route Start Last Admin Trade Name Freq PRN Reason Stop Dose Admin Enoxaparin Sodium 40 mg 10/07/18 10:00 10/08/18 10:32 Lovenox - SQ 40 mg DAILY IRINEO Administration Piperacillin Sod/Tazobactam 50 mls @ 100 mls/hr 10/07/18 19:30 10/08/18 10:31 Sod 3.375 gm/ Dextrose IVPB 100 mls/hr Q6H-IV IRINEO Administration Protocol Sodium Chloride 1,000 mls @ 100 mls/hr 10/06/18 17:30 10/07/18 18:30 Normal Saline - IV 100 mls/hr ASDIR IRINEO Administration Magnesium Oxide 400 mg 10/07/18 10:15 10/08/18 10:32 Mag-Ox - PO 400 mg BID IRINEO Administration Potassium Phos/Sodium Phos 1 packet 10/07/18 10:15 10/08/18 10:32 Phos-Nak Packet - PO 1 packet DAILY IRINEO Administration Tamsulosin HCl 0.4 mg 10/07/18 08:30 10/08/18 09:30 Flomax - PO 0.4 mg DAILY@0830 IRINEO Administration ASSESSMENT/PLAN 83 year-old male with a PMH significant for HTN, HLD, CAD s/p CABG x 4 (2003), afib on coumadin, BPH, and antiphospholipd syndrome. Recently hospitalized at [place] 09/16-09/20/18 for E.coli/morganella UTI and c.diff colitis. Admitted for sepsis secondary to UTI. Sepsis, resolved UTI --T102.7, WBC 12k, pyuria, abdominal pain; lactic acid wnl on admission --afebrile 24 hours, leukocytosis resolved --recent UTI (+) E.coli, (+) Morganella --urine culture contaminated, recollected, pending --continue Zosyn 3.375 q6h Abdominal pain C. difficile colitis ruled out --C.diff negative --CTAP: no sign of diverticulitis/colitis --PO vanco stopped Hypertension --BP stable and renal function stable --restart home lisinopril Hyperlipidemia --resume statin Coronary artery disease --not on beta samir or ASA Atrial fibrillation --not on rate-controlling agent --INR 3.82, likely due to infection; continue to hold warfarin Antiphospholipid syndrome BPH --continue tamsulosin --urology consult pending FEN Fluids: PO intake adequate Electrolytes: replete as indicated Nutrition: low sodium DVT prophylaxis: INR supratherapeutic @ 3.82, continue hold coumadin, goal 2-3; check INR in am Dispo: continues to require observation. Full code. Visit type - Emergency Visit Emergency Visit: Yes ED Registration Date: 10/07/18 Care time: The patient presented to the Emergency Department on the above date and was hospitalized for further evaluation of their emergent condition. - New Patient This patient is new to me today: No - Critical Care Critical Care patient: No
[2018-10-08] MEDS: ACETAMINOPHEN 325 MG TABLET (FP) PO PRN (16:21)
[2018-10-08] MEDS: PANTOPRAZOLE 40 MG TABLET (FP) PO SCH (16:21)
[2018-10-08] MEDS: ATORVASTATIN CA 20 MG TABLET (FP) PO SCH (21:59)
[2018-10-08] MEDS: LISINOPRIL 10 MG TABLET (FP) PO SCH (21:59)
[2018-10-09] MEDS ORDERED: DEXTROSE 5%-WATER - 50 ML IVPB ONE ×4 (01:35→20:27)
[2018-10-09] MEDS ORDERED: PIPERACILLIN/TAZOBACTAM 3.375 GM VIAL IVPB ONE ×4 (01:35→20:27)
[2018-10-09] MEDS: PIPERACILLIN/TAZOB 3.375 GM 3.375 GM in DEXTROSE 5%-WATER - 50 ML IVPB SCH ×4 (03:00→21:03)
--- NOTE | 2018-10-09 08:11 | PN ---
Physical Exam: SUBJECTIVE: Patient seen and examined at bedside. No fevers, chills. OBJECTIVE: Vital Signs Period Temp Pulse Resp BP Sys/Bragg Pulse Ox Last 24 Hr 97.9 F-99.6 F 73-90 18-18 106-150/63-94 95-96 GENERAL: Awake, alert, and fully oriented. LUNGS: Breath sounds equal, clear to auscultation bilaterally. No wheezes, and no crackles. No accessory muscle use. HEART: Regular rate and rhythm, normal S1 and S2 without murmur, rub or gallop. ABDOMEN: Soft, nontender, not distended, normoactive bowel sounds, no guarding, no rebound tenderness MUSCULOSKELETAL: Normal range of motion at all joints. No bony deformities or tenderness. UPPER EXTREMITIES: 2+ pulses, warm, well-perfused. No cyanosis. No clubbing. No peripheral edema. LOWER EXTREMITIES: 2+ pulses, warm, well-perfused. No calf tenderness. No peripheral edema. NEUROLOGICAL: Cranial nerves II-XII intact. Normal speech. Normal gait. Laboratory Results - last 24 hr 10/08/18 10/08/18 10/08/18 07:03 07:03 07:03 WBC 8.4 RBC 3.47 L Hgb 10.4 L Hct 31.4 L MCV 90.4 MCH 30.0 MCHC 33.1 RDW 14.1 Plt Count 103 L MPV 9.9 Absolute Neuts (auto) 6.6 Neutrophils % 78.6 Lymphocytes % 11.0 Monocytes % 9.3 Eosinophils % 1.0 D Basophils % 0.1 PT with INR 41.7 H INR 3.82 H Sodium 137 Potassium 4.3 Chloride 109 H Carbon Dioxide 20 L Anion Gap 8 BUN 13 Creatinine 1.1 Est GFR (CKD-EPI)AfAm 71.57 Est GFR (CKD-EPI)NonAf 61.75 Random Glucose 83 Calcium 8.5 Total Bilirubin 0.9 AST 15 ALT 17 Alkaline Phosphatase 98 D Total Protein 5.7 L Albumin 2.7 L Active Medications Generic Name Dose Route Start Last Admin Trade Name Freq PRN Reason Stop Dose Admin Acetaminophen 650 mg 10/08/18 16:10 10/08/18 16:21 Tylenol - PO 650 mg Q6H PRN Administration PAIN LEVEL 1-5 Atorvastatin Calcium 20 mg 10/08/18 22:00 10/08/18 21:59 Lipitor - PO 20 mg HS IRINEO Administration Enoxaparin Sodium 40 mg 10/07/18 10:00 10/08/18 10:32 Lovenox - SQ 40 mg DAILY IRINEO Administration Piperacillin Sod/Tazobactam 50 mls @ 100 mls/hr 10/07/18 19:30 10/09/18 03:00 Sod 3.375 gm/ Dextrose IVPB 100 mls/hr Q6H-IV IRINEO Administration Protocol Lisinopril 10 mg 10/08/18 22:00 10/08/18 21:59 Prinivil PO 10 mg HS IRINEO Administration Magnesium Oxide 400 mg 10/07/18 10:15 10/08/18 21:59 Mag-Ox - PO 400 mg BID IRINEO Administration Pantoprazole Sodium 40 mg 10/08/18 16:15 10/08/18 16:21 Protonix - PO 40 mg DAILY IRINEO Administration Potassium Phos/Sodium Phos 1 packet 10/07/18 10:15 10/08/18 10:32 Phos-Nak Packet - PO 1 packet DAILY IRINEO Administration Tamsulosin HCl 0.4 mg 10/07/18 08:30 10/08/18 09:30 Flomax - PO 0.4 mg DAILY@0830 IRINEO Administration ASSESSMENT/PLAN 83 year-old male with a PMH significant for HTN, HLD, CAD s/p CABG x 4 (2003), afib on coumadin, BPH, and antiphospholipd syndrome. Recently hospitalized at [facility] 09/16-09/20/18 for E.coli/morganella UTI and c.diff colitis. Admitted for sepsis secondary to UTI. Sepsis, resolved UTI --T102.7, WBC 12k, pyuria, abdominal pain; lactic acid wnl on admission --afebrile 48 hours, leukocytosis resolved --first urine culture contaminated; second negative but collected after antibiotcs started --recent UTI (+) E.coli, (+) Morganella --continue Zosyn (day #3) BPH --continue tamsulosin --seen and evaluzted by Dr. Carroll; will need at least 14 days of antibiotics , then likely will plan for Green Light procedure; will follow as outpatient Abdominal pain C. difficile colitis ruled out --C.diff negative --CTAP: no sign of diverticulitis/colitis Hypertension --BP stable and renal function stable --continue lisinopril Hyperlipidemia --continue statin Coronary artery disease --not on beta samir or ASA Atrial fibrillation --not on rate-controlling agent --INR 2.87, resume warfarin 7mg Antiphospholipid syndrome FEN Fluids: PO intake adequate Electrolytes: replete as indicated Nutrition: low sodium DVT prophylaxis: INR therapeutic, resume warfarin Dispo: continues to require inpatient care. Full code. Visit type - Emergency Visit Emergency Visit: Yes ED Registration Date: 10/07/18 Care time: The patient presented to the Emergency Department on the above date and was hospitalized for further evaluation of their emergent condition. - New Patient This patient is new to me today: No - Critical Care Critical Care patient: No
[2018-10-09] MEDS: TAMSULOSIN HCL 0.4 MG CAP PO SCH (08:14)
[2018-10-09 08:17] LABS: BASO % 0.2 % (0-2.0); EOS % 1.2 % (0-4.5); HEMATOCRIT 30.1 % (35.4-49); HEMOGLOBIN 9.9 GM/dl (11.7-16.9); LYMPH % 12.1 % (8-40); MCH 29.6 pg (25.7-33.7); MEAN CELL VOLUME 89.7 fl (80-96); MEAN PLT VOLUME 9.8 fl (7.5-11.1); MONO % 9.7 % (3.8-10.2); NEUT % 76.8 % (42.8-82.8); PLATELET COUNT 112 K/MM3 (134-434); RBC 3.35 M/mm3 (4.00-5.60); RDW 13.6 % (11.9-15.9); WHITE BLOOD COUNT 7.2 K/mm3 (4.0-10.8)
[2018-10-09 08:41] LABS: INR 2.87 (0.82-1.09); PROTHROMBIN TIME (PATIENT) 31.5 SEC (10.2-13.0)
[2018-10-09 08:48] LABS: CALCIUM 8.3 mg/dl (8.5-10); CREATININE 1.1 mg/dl (0.55-1.3); MAGNESIUM 2.1 mg/dL (1.8-2.4)
[2018-10-09] MEDS: PANTOPRAZOLE 40 MG TABLET (FP) PO SCH (10:34)
[2018-10-09] MEDS: NAPH,MB-DB/K PH,MBDB POWDER PACKET PO SCH (10:34)
[2018-10-09] MEDS: MAGNESIUM OXIDE 400 MG TABLET (FP) PO SCH ×2 (10:35→21:03)
[2018-10-09] MEDS: ACETAMINOPHEN 325 MG TABLET (FP) PO PRN (14:40)
[2018-10-09] MEDS ORDERED: WARFARIN NA 5 MG TABLET (UD) ONE (20:27)
[2018-10-09] MEDS ORDERED: WARFARIN NA 2 MG TABLET (UD) ONE (20:27)
[2018-10-09] MEDS: ATORVASTATIN CA 20 MG TABLET (FP) PO SCH (21:03)
[2018-10-09] MEDS: WARFARIN NA 5 MG, WARFARIN NA 2 MG PO SCH (21:03)
[2018-10-09] MEDS: LISINOPRIL 10 MG TABLET (FP) PO SCH (21:03)
[2018-10-09] MEDS ORDERED: WARFARIN SODIUM 7 MG PO SCH (22:00)
[2018-10-10] MEDS: PIPERACILLIN/TAZOB 3.375 GM 3.375 GM in DEXTROSE 5%-WATER - 50 ML IVPB SCH ×4 (03:00→20:48)
[2018-10-10] MEDS ORDERED: DEXTROSE 5%-WATER - 50 ML IVPB ONE ×4 (05:08→20:44)
[2018-10-10] MEDS ORDERED: PIPERACILLIN/TAZOBACTAM 3.375 GM VIAL IVPB ONE ×4 (05:08→20:44)
[2018-10-10] MEDS: TAMSULOSIN HCL 0.4 MG CAP PO SCH (08:15)
--- NOTE | 2018-10-10 08:43 | PN ---
Physical Exam: SUBJECTIVE: Patient seen and examined at bedside. Continues to feel well, no fever, no chills. No difficulty urinating. OBJECTIVE: Vital Signs Period Temp Pulse Resp BP Sys/Bragg Pulse Ox Last 24 Hr 97.9 F-98.3 F 67-87 17-20 109-139/61-82 95-99 GENERAL: Awake, alert, and fully oriented. LUNGS: Breath sounds equal, clear to auscultation bilaterally. No wheezes, and no crackles. No accessory muscle use. HEART: Regular rate and rhythm, normal S1 and S2 without murmur, rub or gallop. ABDOMEN: Soft, nontender, not distended, normoactive bowel sounds, no guarding, no rebound tenderness MUSCULOSKELETAL: Normal range of motion at all joints. No bony deformities or tenderness. UPPER EXTREMITIES: 2+ pulses, warm, well-perfused. No cyanosis. No clubbing. No peripheral edema. LOWER EXTREMITIES: 2+ pulses, warm, well-perfused. No calf tenderness. No peripheral edema. NEUROLOGICAL: Cranial nerves II-XII intact. Normal speech. Normal gait. Laboratory Results - last 24 hr 10/09/18 10/09/18 07:58 07:58 PT with INR 31.5 H INR 2.87 H Sodium 138 Potassium 4.0 Chloride 109 H Carbon Dioxide 22 Anion Gap 7 L BUN 12 Creatinine 1.1 Est GFR (CKD-EPI)AfAm 71.57 Est GFR (CKD-EPI)NonAf 61.75 Random Glucose 89 Calcium 8.3 L Magnesium 2.1 Active Medications Generic Name Dose Route Start Last Admin Trade Name Freq PRN Reason Stop Dose Admin Acetaminophen 650 mg 10/08/18 16:10 10/09/18 14:40 Tylenol - PO 650 mg Q6H PRN Administration PAIN LEVEL 1-5 Atorvastatin Calcium 20 mg 10/08/18 22:00 10/09/18 21:03 Lipitor - PO 20 mg HS IRINEO Administration Piperacillin Sod/Tazobactam 50 mls @ 100 mls/hr 10/07/18 19:30 10/10/18 08:15 Sod 3.375 gm/ Dextrose IVPB 100 mls/hr Q6H-IV IRINEO Administration Protocol Lisinopril 10 mg 10/08/18 22:00 10/09/18 21:03 Prinivil PO 10 mg HS IRINEO Administration Magnesium Oxide 400 mg 10/07/18 10:15 10/09/18 21:03 Mag-Ox - PO 400 mg BID IRINEO Administration Pantoprazole Sodium 40 mg 10/08/18 16:15 10/09/18 10:34 Protonix - PO 40 mg DAILY IRINEO Administration Potassium Phos/Sodium Phos 1 packet 10/07/18 10:15 10/09/18 10:34 Phos-Nak Packet - PO 1 packet DAILY IRINEO Administration Tamsulosin HCl 0.4 mg 10/07/18 08:30 10/10/18 08:15 Flomax - PO 0.4 mg DAILY@0830 IRINEO Administration Warfarin Sodium 5 mg/ Warfarin 7 mg 10/09/18 22:00 10/09/18 21:03 Sodium 2 mg PO 7 mg HS IRINEO Administration ASSESSMENT/PLAN: 83 year-old male with a PMH significant for HTN, HLD, CAD s/p CABG x 4 (2003), afib on coumadin, BPH, and antiphospholipd syndrome. Recently hospitalized at [place] 09/16-09/20/18 for E.coli/morganella UTI and c.diff colitis. Admitted for sepsis secondary to UTI. Sepsis, resolved UTI --T102.7, WBC 12k, pyuria, abdominal pain; lactic acid wnl on admission --afebrile, leukocytosis resolved --first urine culture contaminated; second negative but collected after antibiotcs started --recent UTI (+) E.coli, (+) Morganella --continue Zosyn (day #4) BPH --continue tamsulosin --seen and evaluzted by Dr. Carroll; will need at least 14 days of antibiotics , then likely will plan for Green [facility] procedure; will follow as outpatient Abdominal pain C. difficile colitis ruled out --C.diff negative --CTAP: no sign of diverticulitis/colitis Hypertension --BP stable --continue lisinopril Hyperlipidemia --continue statin Coronary artery disease --not on beta samir or ASA Atrial fibrillation --not on rate-controlling agent --INR 2.87, resume warfarin 7mg Antiphospholipid syndrome FEN Fluids: PO intake adequate Electrolytes: replete as indicated Nutrition: low sodium DVT prophylaxis: continue warfarin Dispo: continues to require inpatient care. Full code. Visit type - Emergency Visit Emergency Visit: Yes ED Registration Date: 10/07/18 Care time: The patient presented to the Emergency Department on the above date and was hospitalized for further evaluation of their emergent condition. - New Patient This patient is new to me today: No - Critical Care Critical Care patient: No
[2018-10-10 08:52] LABS: BASO % 0.2 % (0-2.0); EOS % 2.1 % (0-4.5); HEMATOCRIT 33.4 % (35.4-49); HEMOGLOBIN 10.8 GM/dl (11.7-16.9); LYMPH % 15.2 % (8-40); MCH 29.4 pg (25.7-33.7); MCHC 32.2 g/dl (32.0-35.9); MEAN CELL VOLUME 91.3 fl (80-96); MEAN PLT VOLUME 9.5 fl (7.5-11.1); MONO % 8.8 % (3.8-10.2); NEUT % 73.7 % (42.8-82.8); PLATELET COUNT 159 K/MM3 (134-434); RBC 3.66 M/mm3 (4.00-5.60); RDW 14.3 % (11.9-15.9); WHITE BLOOD COUNT 7.4 K/mm3 (4.0-10.8)
[2018-10-10 09:15] LABS: CREATININE 1.2 mg/dl (0.55-1.3); MAGNESIUM 2.1 mg/dL (1.8-2.4); POTASSIUM 4.4 mmol/L (3.5-5.1); TOT PROT 6.6 g/dl (6.4-8.2)
[2018-10-10] MEDS: NAPH,MB-DB/K PH,MBDB POWDER PACKET PO SCH (09:22)
[2018-10-10] MEDS: PANTOPRAZOLE 40 MG TABLET (FP) PO SCH (09:22)
[2018-10-10] MEDS: MAGNESIUM OXIDE 400 MG TABLET (FP) PO SCH ×2 (09:22→21:31)
--- NOTE | 2018-10-10 10:56 | PN ---
Progress Note, Physician - Current Medication List Current Medications: Active Medications Acetaminophen (Tylenol -) 650 mg PO Q6H PRN PRN Reason: PAIN LEVEL 1-5 Last Admin: 10/09/18 14:40 Dose: 650 mg Atorvastatin Calcium (Lipitor -) 20 mg PO HS [facility] Last Admin: 10/09/18 21:03 Dose: 20 mg Piperacillin Sod/Tazobactam (Sod 3.375 gm/ Dextrose) 50 mls @ 100 mls/hr IVPB Q6H-IV IRINEO; Protocol Last Admin: 10/10/18 08:15 Dose: 100 mls/hr Lisinopril (Prinivil) 10 mg PO HS [facility] Last Admin: 10/09/18 21:03 Dose: 10 mg Magnesium Oxide (Mag-Ox -) 400 mg PO BID [facility] Last Admin: 10/10/18 09:22 Dose: 400 mg Pantoprazole Sodium (Protonix -) 40 mg PO DAILY [facility] Last Admin: 10/10/18 09:22 Dose: 40 mg Potassium Phos/Sodium Phos (Phos-Nak Packet -) 1 packet PO DAILY [facility] Last Admin: 10/10/18 09:22 Dose: 1 packet Tamsulosin HCl (Flomax -) 0.4 mg PO DAILY@0830 [facility] Last Admin: 10/10/18 08:15 Dose: 0.4 mg Warfarin Sodium 5 mg/ Warfarin (Sodium 2 mg) 7 mg PO [facility] Last Admin: 10/09/18 21:03 Dose: 7 mg - Objective Vital Signs: Vital Signs Temperature 97.7 F 10/10/18 09:35 Pulse Rate 81 10/10/18 09:35 Respiratory Rate 18 10/10/18 09:35 Blood Pressure 126/87 10/10/18 09:35 O2 Sat by Pulse Oximetry (%) 98 10/10/18 09:35 Labs: CBC, BMP 10/10/18 07:40 10/10/18 07:40 INR, PTT INR 2.87 (0.82-1.09) H 10/09/18 07:58
[2018-10-10 20:32] VITALS: TEMP 98
[2018-10-10] MEDS ORDERED: WARFARIN NA 5 MG TABLET (UD) ONE (21:26)
[2018-10-10] MEDS ORDERED: WARFARIN NA 2 MG TABLET (UD) ONE (21:26)
[2018-10-10] MEDS: ATORVASTATIN CA 20 MG TABLET (FP) PO SCH (21:31)
[2018-10-10] MEDS: WARFARIN NA 5 MG, WARFARIN NA 2 MG PO SCH (21:31)
[2018-10-10] MEDS: LISINOPRIL 10 MG TABLET (FP) PO SCH (21:32)
[2018-10-11] MEDS ORDERED: PIPERACILLIN/TAZOBACTAM 3.375 GM VIAL IVPB ONE ×2 (03:13→09:14)
[2018-10-11] MEDS ORDERED: DEXTROSE 5%-WATER - 50 ML IVPB ONE ×2 (03:14→09:14)
[2018-10-11] MEDS: PIPERACILLIN/TAZOB 3.375 GM 3.375 GM in DEXTROSE 5%-WATER - 50 ML IVPB SCH ×2 (03:29→09:20)
[2018-10-11 06:49] VITALS: BP 123/71; PULSE 74
[2018-10-11 08:34] LABS: INR 2.86 (0.82-1.09); PROTHROMBIN TIME (PATIENT) 31.4 SEC (10.2-13.0)
[2018-10-11 08:38] LABS: BASO % 0.2 % (0-2.0); EOS % 2.6 % (0-4.5); HEMATOCRIT 30.5 % (35.4-49); HEMOGLOBIN 10.3 GM/dl (11.7-16.9); LYMPH % 16.2 % (8-40); MCH 30.4 pg (25.7-33.7); MCHC 33.7 g/dl (32.0-35.9); MEAN CELL VOLUME 90.2 fl (80-96); MEAN PLT VOLUME 9.3 fl (7.5-11.1); MONO % 9.6 % (3.8-10.2); NEUT % 71.4 % (42.8-82.8); PLATELET COUNT 161 K/MM3 (134-434); RBC 3.37 M/mm3 (4.00-5.60); RDW 13.6 % (11.9-15.9); WHITE BLOOD COUNT 7.2 K/mm3 (4.0-10.8)
[2018-10-11 08:46] LABS: ALBUMIN 2.8 g/dl (3.4-5.0); BILIRUBIN,TOTAL 0.6 mg/dl (0.2-1); CALCIUM 8.8 mg/dl (8.5-10); CREATININE 1.1 mg/dl (0.55-1.3); MAGNESIUM 1.9 mg/dL (1.8-2.4); POTASSIUM 4.4 mmol/L (3.5-5.1); TOT PROT 6.1 g/dl (6.4-8.2)
--- NOTE | 2018-10-11 08:49 | DS ---
Physical Exam: SUBJECTIVE: Patient seen and examined. Feels well, ready to go home. Outpatient followup with urologists discussed at length. OBJECTIVE: Vital Signs Period Temp Pulse Resp BP Sys/Bragg Pulse Ox Last 24 Hr 97.7 F-98.3 F 65-81 16-19 113-153/65-88 95-98 PHYSICAL EXAM GENERAL: Awake, alert, and fully oriented. LUNGS: Breath sounds equal, clear to auscultation bilaterally. No wheezes, and no crackles. No accessory muscle use. HEART: Regular rate and rhythm, normal S1 and S2 without murmur, rub or gallop. ABDOMEN: Soft, nontender, not distended, normoactive bowel sounds, no guarding, no rebound tenderness MUSCULOSKELETAL: Normal range of motion at all joints. No bony deformities or tenderness. UPPER EXTREMITIES: 2+ pulses, warm, well-perfused. No cyanosis. No clubbing. No peripheral edema. LOWER EXTREMITIES: 2+ pulses, warm, well-perfused. No calf tenderness. No peripheral edema. NEUROLOGICAL: Cranial nerves II-XII intact. Normal speech. Normal gait. LABS Laboratory Results - last 24 hr 10/10/18 10/10/18 07:40 07:40 WBC 7.4 RBC 3.66 L Hgb 10.8 L Hct 33.4 L MCV 91.3 MCH 29.4 MCHC 32.2 RDW 14.3 Plt Count 159 D MPV 9.5 Absolute Neuts (auto) 5.4 Neutrophils % 73.7 Lymphocytes % 15.2 D Monocytes % 8.8 Eosinophils % 2.1 Basophils % 0.2 Sodium 140 Potassium 4.4 Chloride 108 H Carbon Dioxide 24 Anion Gap 8 BUN 10 Creatinine 1.2 Est GFR (CKD-EPI)AfAm 64.42 Est GFR (CKD-EPI)NonAf 55.58 Random Glucose 86 Calcium 9.0 Magnesium 2.1 Total Bilirubin 1.0 AST 19 ALT 19 Alkaline Phosphatase 116 D Total Protein 6.6 Albumin 3.0 L HOSPITAL COURSE: Date of Admission:10/07/18 Date of Discharge: 10/11/18 Pre hospital course 83 year-old male with a PMH significant for HTN, HLD, CAD s/p CABG x 4 (2003), afib on coumadin, BPH, and antiphospholipd syndrome. Recently hospitalized at [facility] 09/16-09/20/18 for E.coli/morganella UTI and c.diff colitis. Completed 14-day course of PO vanc ~/. He presents to the ED with urinary frequency x 2 days. Last night he developed shaking chills. Over the past 24 hours has also been experiencing abdominal pain that he describes as an "ache" that goes circumferentially around his mid-section. Patient notes that since diagnosed with c.diff, his stools have never returned to fully formed, the stools are brown, thin, "like toothpaste" and he has had a lot of gas. Patient denies hematuria, melena, hematochezia. Patient states his has recurrent UTIs, is being treated now for seven [address] Slade. ER course (1) T102.7, WBC 12.0, pyuria (2) INR 3.51 (3) NS x 2.5L, Zosyn x 1, PO Vanc x 1 Subsequent hospital course Sepsis, resolved UTI --T102.7, WBC 12k, pyuria, abdominal pain; lactic acid wnl on admission --afebrile, leukocytosis resolved on day #2 of hospitalization --first urine culture was contaminated, and second urine culture was but collected after antibiotcs started --recent UTI (+) E.coli, (+) Morganella --treated with Zosyn x 5 days; discharged on Bactrim to complete 14 days of treatment BPH --continued tamsulosin --seen and evaluzted by Dr. Carroll; will need at least 14 days of antibiotics , then likely will plan for Green Light procedure; will follow as outpatient Abdominal pain C. difficile colitis ruled out --C.diff negative --CTAP: no sign of diverticulitis/colitis Hypertension --BP stable --continued lisinopril Hyperlipidemia --continued statin Coronary artery disease --not on beta samir or ASA Atrial fibrillation --not on rate-controlling agent --INR was supratherapeutic on admission, coumadin was restarted on 10/09 when INR 2.87 Antiphospholipid syndrome Minutes to complete discharge: 35 Discharge Summary Reason For Visit: UTI, SEPSIS Current Active Problems C. difficile colitis (Acute) UTI (urinary tract infection) (Acute) Condition: Improved - Instructions Diet, Activity, Other Instructions: A prescription has been sent to your pharmacy for Bactrim, an antibiotic. Take this medication as directed and be sure to finish all the medication. When the medication is finished you will have completed 14 days of antibiotic therapy. As discussed, it is recommended you follow up with Dr. Carroll and Dr. Carrington. Referrals: Carlin Carroll MD [Staff Physician] - Disposition: HOME - Home Medications Comprehensive Discharge Medication List: Ambulatory Orders Lisinopril [Prinivil -] 10 mg PO HS 08/14/12 Simvastatin [Zocor -] 40 mg PO HS 08/14/12 Warfarin Sodium [Coumadin] 7 mg PO HS 08/14/12 Tamsulosin HCl 0.4 mg PO DAILY 09/05/18 This patient is new to me today: No Emergency Visit: Yes ED Registration Date: 10/07/18 Care time: The patient presented to the Emergency Department on the above date and was hospitalized for further evaluation of their emergent condition. Critical Care patient: No - Discharge Referral Referred to [facility] No
--- NOTE | 2018-10-11 09:17 | PN ---
Progress Note, Physician History of Present Illness: stable doing well no complaints last cx negative - Current Medication List Current Medications: Active Medications Acetaminophen (Tylenol -) 650 mg PO Q6H PRN PRN Reason: PAIN LEVEL 1-5 Last Admin: 10/09/18 14:40 Dose: 650 mg Atorvastatin Calcium (Lipitor -) 20 mg PO [facility] Last Admin: 10/10/18 21:31 Dose: 20 mg Piperacillin Sod/Tazobactam (Sod 3.375 gm/ Dextrose) 50 mls @ 100 mls/hr IVPB Q6H-IV IRINEO; Protocol Last Admin: 10/11/18 03:29 Dose: 100 mls/hr Lisinopril (Prinivil) 10 mg PO [facility] Last Admin: 10/10/18 21:32 Dose: 10 mg Magnesium Oxide (Mag-Ox -) 400 mg PO BID [facility] Last Admin: 10/10/18 21:31 Dose: 400 mg Pantoprazole Sodium (Protonix -) 40 mg PO DAILY [facility] Last Admin: 10/10/18 09:22 Dose: 40 mg Potassium Phos/Sodium Phos (Phos-Nak Packet -) 1 packet PO DAILY [facility] Last Admin: 10/10/18 09:22 Dose: 1 packet Tamsulosin HCl (Flomax -) 0.4 mg PO DAILY@0830 [facility] Last Admin: 10/10/18 08:15 Dose: 0.4 mg Warfarin Sodium 5 mg/ Warfarin (Sodium 2 mg) 7 mg PO [facility] Last Admin: 10/10/18 21:31 Dose: 7 mg - Objective Vital Signs: Vital Signs Temperature 98.0 F 10/11/18 06:00 Pulse Rate 74 10/11/18 06:00 Respiratory Rate 19 10/11/18 06:00 Blood Pressure 123/71 10/11/18 06:00 O2 Sat by Pulse Oximetry (%) 96 10/11/18 08:31 Constitutional: Yes: No Distress, Calm Cardiovascular: Yes: Regular Rate and Rhythm Respiratory: Yes: Regular, CTA Bilaterally Gastrointestinal: Yes: Normal Bowel Sounds, Soft Musculoskeletal: Yes: WNL Extremities: Yes: WNL Neurological: Yes: Alert, Oriented Psychiatric: Yes: Alert, Oriented Labs: CBC, BMP 10/11/18 07:10 10/11/18 07:10 INR, PTT INR 2.86 (0.82-1.09) H 10/11/18 07:10 Assessment/Plan 83 year-old male with a PMH significant for HTN, HLD, CAD s/p CABG x 4 (2003), afib on coumadin, BPH, and antiphospholipd syndrome. Recently hospitalized at [facility] 09/16-09/20/18 for E.coli/morganella UTI and c.diff colitis. Admitted for sepsis secondary to UTI. Sepsis, resolved UTI Abdominal pain C. difficile colitis ruled out Hypertension Hyperlipidemia Coronary artery disease Atrial fibrillation Antiphospholipid syndrome BPH plan i think we will send patient on bactrim for another 7 days in view of his repeat infection i have d/w him the side effects of the drug close monitor patient planned for cystoscopy
[2018-10-11] MEDS: PANTOPRAZOLE 40 MG TABLET (FP) PO SCH (09:21)
[2018-10-11] MEDS: TAMSULOSIN HCL 0.4 MG CAP PO SCH (09:21)
[2018-10-11] MEDS: MAGNESIUM OXIDE 400 MG TABLET (FP) PO SCH (09:21)
[2018-10-11] MEDS: NAPH,MB-DB/K PH,MBDB POWDER PACKET PO SCH (09:22)
== END 2018-10-11 11:30 | disposition home or self-care (01) | DRG 872 ==
LOC: FER 11:25 → FM/S 14:10 → UNDOADMOB 14:10 → INTOOBSV 18:24 → OBSVTOIN 18:24 → FM/S 10-07 18:24 → OBSVTOIN 10-07 18:24
PROVIDERS: ADMIT Internal Medicine; ATTEND Nurse Practitioner Acute Care
DX: A41.9 Sepsis, unspecified organism (principal); D68.61 Antiphospholipid syndrome; N39.0 Urinary tract infection, site not specified; I25.10 Atherosclerotic heart disease of native coronary artery without angina pectoris; I10 Essential (primary) hypertension; I48.91 Unspecified atrial fibrillation; E78.5 Hyperlipidemia, unspecified; I25.2 Old myocardial infarction; Z95.1 Presence of aortocoronary bypass graft; Z87.891 Personal history of nicotine dependence; N40.0 Benign prostatic hyperplasia without lower urinary tract symptoms; N28.1 Cyst of kidney, acquired; R19.7 Diarrhea, unspecified
CPT/HCPCS: 36415; 71045-TC-FY; 74177-TC; 80048; 80053; 81003; 81015; 83605; 83690; 83735; 84100; 84484; 85025; 85610; 85730; 87040; 87086; 87324; 87449; 93005; 99285-25; J0131; J7030

== ENCOUNTER 2018-11-13 08:21 | Inpatient (IN) | payer OTHER ==
[2018-11-12 17:44] VITALS: BMI 27.3
[~2018-11-13 08:21] MED LIST: ceFAZolin SODIUM 1 GM VIAL IVPB ONE
[2018-11-13] MEDS ORDERED: PROPOFOL 20 ML ONE ×3 (09:41)
[2018-11-13] MEDS ORDERED: LIDOCAINE HCL/PF 2% SDV 5ML VIAL ONE (09:43)
[2018-11-13] MEDS ORDERED: SUCCINYLCHOLINE CHLORIDE 200 MG/10 ML SYRINGE ONE (09:44)
[2018-11-13] MEDS ORDERED: ROCURONIUM BROMIDE 50 MG/5 ML SYRINGE ONE (09:44)
[2018-11-13] MEDS ORDERED: GENTAMICIN SO4 80 MG/2 ML VIAL IVPB ONE (10:24)
[2018-11-13] MEDS ORDERED: AMPICILLIN SODIUM 2 GM VIAL IVPB ONE (10:42)
[2018-11-13] MEDS ORDERED: AMPICILLIN - 2 GM in SODIUM CHLORIDE 100 ML IVPB ONE ×2 (10:45→11:00)
[2018-11-13] MEDS ORDERED: AMPICILLIN - 2 GM in DEXTROSE 5%-WATER 100 ML IVPB ONE (11:00)
[2018-11-13] MEDS ORDERED: ONDANSETRON 4 MG/2 ML VIAL IVPUSH PRN (11:07)
[2018-11-13] MEDS ORDERED: GENTAMICIN SO4 80 MG/2 ML VIAL ONE (11:09)
[2018-11-13] MEDS ORDERED: DEXAMETHASONE SOD PHOSPHATE 4 MG/1 ML VIAL ONE (11:10)
[2018-11-13] MEDS ORDERED: LACTATED RINGERS SOLUTION 1,000 ML IV SCH (11:15)
[2018-11-13] MEDS ORDERED: FUROSEMIDE 40 MG/4 ML INJECTABLE VIAL ONE (11:45)
[2018-11-13] MEDS ORDERED: NEOSTIGMINE METHYLSULFATE 0.5 MG/1 ML - 10 ML MDV ONE (11:55)
[2018-11-13] MEDS ORDERED: GLYCOPYRROLATE 0.2 MG/1 ML VIAL ONE (11:56)
[2018-11-13] MEDS ORDERED: ceFAZolin SODIUM 1 GM VIAL ONE ×2 (13:22→20:47)
[2018-11-13] MEDS ORDERED: ACETAMINOPHEN 325 MG TABLET (FP) PO PRN (13:22)
--- NOTE | 2018-11-13 13:33 | OP ---
DATE OF OPERATION: 11/13/2018 PREOPERATIVE DIAGNOSIS: Bladder outlet obstruction. POSTOPERATIVE DIAGNOSIS: Bladder outlet obstruction. PROCEDURE: Transurethral resection of prostate. ATTENDING SURGEON: Tri Carroll MD STONE LAYER: None. ANESTHESIA: General by LMA. Patient was brought in to the operating room. Timeout performed. IV ampicillin and gentamicin were administered. Patient was then carefully placed in lithotomy and prepped and draped in the usual sterile fashion. A 26-Ukrainian continuous-flow bipolar resectoscope was passed under vision. The bladder was examined. No lesions noted in the bladder. The prostatic urethra was then examined and noted to be close to 5 cm in length with a large amount of lateral lobe tissue obstructing the channel. Attention was initially directed to the left lobe and initially the button was used to vaporize the tissue; however, because of the size of the prostate, the loop was switched from the button to the resection loop and the procedure continued with resection of the left lobe from the bladder neck to the verumontanum, from 6 o'clock in a counter-clockwise fashion up to the 12 o'clock position. The orifices were noted and were well away from the area of resection. After the left lobe was resected, the right lobe was resected from 6 o'clock clockwise to 12 o'clock, from the bladder neck to the verumontanum. After the chips were then evacuated from the bladder, hemostasis was obtained with electrocautery. At the completion of the procedure, patient had a widely patent channel from the verumontanum into the bladder with no significant bleeding noted, no residual chips noted. Both orifices were effluxing clear urine and remained uninjured. Similarly, there were no injuries to the bladder during the resection. The resected scope was then removed and a 22 three-way Simmons easily inserted and left to continuous irrigation. Vital signs remained stable throughout. Estimated blood loss for the procedure was approximately 100 mL. Patient left the OR in stable satisfactory condition. TRI CARROLL MD [id number]
[2018-11-13] MEDS ORDERED: CEFAZOLIN 1 GM in DEXTROSE 5%-WATER - 50 ML IVPB SCH (15:00)
[2018-11-13] MEDS: oxyCODONE HCL 5 MG TABLET PO PRN ×2 (17:37→23:14)
[2018-11-13] MEDS ORDERED: PT OWN MED DRAWER 7, Y5N ONE (20:42)
[2018-11-13] MEDS ORDERED: DEXTROSE 5%-WATER - 50 ML IVPB ONE (20:47)
[2018-11-13] MEDS: CEFAZOLIN 1 GM in DEXTROSE 5%-WATER - 50 ML IVPB SCH (20:57)
[2018-11-13] MEDS: HEPARIN NA (PORCINE) 5,000 UNITS/ML 1ML VIAL SQ SCH (21:41)
[2018-11-13] MEDS: ATORVASTATIN CA 40 MG TABLET (FP) PO SCH (21:41)
[2018-11-14] MEDS ORDERED: DEXTROSE 5%-WATER - 50 ML IVPB ONE ×4 (02:27→20:56)
[2018-11-14] MEDS ORDERED: ceFAZolin SODIUM 1 GM VIAL ONE ×4 (02:27→20:56)
[2018-11-14] MEDS: CEFAZOLIN 1 GM in DEXTROSE 5%-WATER - 50 ML IVPB SCH ×4 (02:36→21:23)
[2018-11-14 07:25] LABS: HEMATOCRIT 32.1 % (35.4-49); HEMOGLOBIN 10.9 GM/dL (11.7-16.9); MCH 30.4 pg (25.7-33.7); MEAN CELL VOLUME 89.5 fl (80-96); MEAN PLT VOLUME 9.2 fl (7.5-11.1); PLATELET COUNT 153 K/MM3 (134-434); RBC 3.59 M/mm3 (4.00-5.60); RDW 16.9 % (11.9-15.9); WHITE BLOOD COUNT 10.6 K/mm3 (4.0-10.0)
[2018-11-14 07:48] LABS: BLOOD UREA NITROGEN 14.5 mg/dL (7-18); CALCIUM 9.1 mg/dL (8.5-10.1); CREATININE 1.1 mg/dL (0.55-1.3); POTASSIUM 4.8 mmol/L (3.5-5.1)
[2018-11-14] MEDS: LISINOPRIL 10 MG TABLET (FP) PO SCH (10:54)
[2018-11-14] MEDS: HEPARIN NA (PORCINE) 5,000 UNITS/ML 1ML VIAL SQ SCH ×2 (10:54→21:24)
[2018-11-14] MEDS: oxyCODONE HCL 5 MG TABLET PO PRN (14:13)
--- NOTE | 2018-11-14 14:24 | PN ---
Progress Note (short form) - Note Progress Note: Post op Pt seen and examined S:Alert and awake O: Vital Signs Temperature 98.1 F 11/14/18 06:38 Pulse Rate 69 11/14/18 06:38 Respiratory Rate 20 11/14/18 06:38 Blood Pressure 115/67 11/14/18 06:38 O2 Sat by Pulse Oximetry (%) 99 11/13/18 14:55 CBC, BMP 11/14/18 06:37 11/14/18 06:37 A/P:s/p TURP Doing well post op Continue current care Castro Suero MD
--- NOTE | 2018-11-14 16:47 | PATH ---
Surgical Pathology Report Patient Name: MARY BABCOCK Med. Rec. #: [id number] /Age/Gender: 1935 (Age: 83) / M Account: [id number] Location: [facility] MED/SURG Taken: 11/13/2018 Received: 11/13/2018 Reported: 11/14/2018 Physicians: Carlin Carroll MD Specimen(s) Received PROSTATE CHIPS Clinical History Prostatic hypertrophy Final Diagnosis PROSTATE CHIPS, BIPOLAR TRANSURETHRAL RESECTION OF PROSTATE: BENIGN PROSTATIC TISSUE WITH FOCAL ACUTE AND CHRONIC INFLAMMATION, ACINAR ATROPHY, CYSTIC CHANGES, STROMAL AND FOCAL GLANDULAR HYPERPLASIA. Electronically Signed Norma Sherwood M.D. Gross Description Received in formalin labeled "prostate chips," is a 6 g, 6.0 x 5.8 x 0.3 cm aggregate of mcmullen, firm to rubbery tissue fragments, consistent with prostate chips. The specimen is entirely submitted in 8 cassettes. /11/13/2018 [place]udi/11/13/2018
--- NOTE | 2018-11-14 17:24 | PN ---
Progress Note (short form) - Note Progress Note: Patient is awake and OOB Urine mostly clear off CBI Plan Trial of voiding and will discharge after he voids Told he can resume Lovenox Monday and will see 11/23 in office
[2018-11-14] MEDS ORDERED: MAGNESIUM HYDROX 2400MG/30ML ORAL SUSPENSION 30 ML CUP PO PRN (18:01)
[2018-11-14] MEDS ORDERED: DEXTROSE 5%-0.2% SALINE - 1,000 ML IV SCH (19:00)
[2018-11-14] MEDS: ATORVASTATIN CA 40 MG TABLET (FP) PO SCH (21:23)
[2018-11-14] MEDS: DOCUSATE SODIUM 100 MG CAPSULE (FP) PO SCH (21:23)
[2018-11-15] MEDS ORDERED: ceFAZolin SODIUM 1 GM VIAL ONE ×2 (02:18→08:42)
[2018-11-15] MEDS ORDERED: DEXTROSE 5%-WATER - 50 ML IVPB ONE ×2 (02:19→08:42)
[2018-11-15] MEDS: CEFAZOLIN 1 GM in DEXTROSE 5%-WATER - 50 ML IVPB SCH ×2 (02:32→09:14)
[2018-11-15] MEDS: oxyCODONE HCL 5 MG TABLET PO PRN (04:23)
[2018-11-15] MEDS: DOCUSATE SODIUM 100 MG CAPSULE (FP) PO SCH (09:15)
[2018-11-15] MEDS: LISINOPRIL 10 MG TABLET (FP) PO SCH (09:15)
[2018-11-15] MEDS: HEPARIN NA (PORCINE) 5,000 UNITS/ML 1ML VIAL SQ SCH (09:15)
[2018-11-15 11:14] VITALS: BP 113/78; PULSE 80; TEMP 98.7
== END 2018-11-15 15:35 | disposition home or self-care (01) | DRG 667 ==
LOC: JASU-SURG 08:21 → JSAMEDAYSX 10:26 → J8W 14:34
PROVIDERS: ADMIT Urology; ATTEND Urology
PROC: 0VT08ZZ Resection of Prostate, Via Natural or Artificial Opening Endoscopic (ICD-10-PCS; principal; 2018-11-13 10:00)
DX: N32.0 Bladder-neck obstruction (principal)
CPT/HCPCS: 36415; 80048; 85027; 86850; 86900; 86901; 88305-TC; 94760; J1644

== ENCOUNTER 2018-12-23 10:56 | Emergency (ER) | payer OTHER | END 2018-12-23 19:15 | disposition home or self-care (01) | LOC: JER 10:56 ==

== ENCOUNTER 2018-12-26 14:27 | Emergency (ER) | payer OTHER ==
[2018-12-26 14:39] VITALS: TEMP 98.4; BMI 25.8
--- NOTE | 2018-12-26 15:20 | PDOC ---
History of Present Illness - General Chief Complaint: Hematuria Stated Complaint: HEMATURIA Time Seen by Provider: 12/26/18 14:36 History Source: Patient, Old Records, Other (Home health aid at bedside.) Exam Limitations: No Limitations - History of Present Illness Initial Comments: HPI: 83 y/o male presenting to ER complaining of low blood pressure and 7 days of persistent painless hematuria. Home health aid reports BP was 80s systolic on the home machine early this morning. Pt denies symptoms including lightheadedness, dizziness, SOB, chest pain, or syncope. She asked him to present to the ED but he refused and went to work. Elected to be evaluated this evening after talking to his urologists office via telephone. Pt was evaluated at [facility] ED on 23 December 2018 for hematuria. Bladder was irrigated and pt was discharged w/ urology f/u. He was again irrigated in urology clinic on Monday and told everything was normal. Hematuria returned with the next voiding episode after both encounters. He is s/p TURP on [address] Carroll. He discontinued his Warfarin therapy last Monday. Denies pain or difficulty with voiding. Denies lower abdominal pain. PCP: Dr. [place] Urologist: Dr. 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 Carroll b/c of enlarged prostate) - Antiphospholipid Syndrome Review of Systems: In addition to that documented in the HPI above, the additional ROS was obtained : Constitutional: Denies fevers or chills Head: Denies vision changes ENMT: Denies sore throat CV: Denies chest pain Resp: Denies SOB GI: Denies vomiting or diarrhea : Per HPI MSK: Denies recent trauma Skin: Denies new rashes Neuro: Denies new numbness or tingling or weakness Endocrine: Denies polyuria Heme: Per HPI Physical Examination: Constitutional: Well-developed, well-nourished adult male in no acute distress or obvious discomfort. Found semi-fowlers on hospital bed. Alert and oriented x4. Answered all questions appropriately and completely. Speech was non-labored , non-pressured. Head: Normocephalic. No obvious external signs of trauma. Eyes: Sclerae white. Ears: Hearing grossly intact. Nose: No nasal discharge. Cardiovascular / Chest: Regular rate and regular rhythm. No murmur, rubs, clicks , or gallops. Peripheral pulses: radial pulses full. Respiratory: Breathing unlabored. Equal chest rise and fall. Clear to auscultation bilaterally. No stridor, no wheezing, no rhonchi. Gastrointestinal: abdomen is soft, non-tender, non-distended. Neuro: Alert and oriented. Moving all four extremities spontaneously. Skin: [place], warm, and dry. Psych: Affect: appropriate. Mood: normal. MDM: *Reviewed vital signs, nursing notes, and prior visit documentation (if available). 83 y/o male presenting for hypotension measured at home several hours prior without symptoms. Also complaining of persistent painless hematuria. Afebrile. Vitals unremarkable for hypotension or tachycardia. Trend measured remained normotensive and normocardic. Physical exam as described above. Unsure of reason for hypotension. Low suspicion to be from infection or acute blood loss. CBC unremarkable for leukocytosis or significant anemia or change from labs drawn 4 days ago. UA revealed pyuria with leukocyte esterase. Possible acute cystitis given multiple catheterizations in the past several days. Renal function normal. INR continues to trend downward from previous labs. Telephone discussion with Dr. Carroll. Verbally appraised of the pts HPI, ED course, and current plan of management. Suggested empirically prescribing Bactrim for increased number of WBC on todays UA. Also suggested iron supplementation. Believes the bleeding will stop without further urologic intervention. Pt to f/u in clinic as needed. Pt reassessed and remains asymptomatic. Vitals remain unconcerning. Discussed imaging and laboratory results with pt. Answered all questions. Provided return precautions. Pt expressed verbal understanding and agreement with plan to discharge home with outpatient follow up with crumb packer as previously scheduled. Will schedule urology f/u as needed. Provided copies of visit results. Prescribed 7 day course of Bactrim for acute cystitis. 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 Warner Field M.D., PGY2 Emergency Medicine Resident Past History - Past Medical History Allergies/Adverse Reactions: Allergies Allergy/AdvReac Type Severity Reaction Status Date / Time No Known Allergies Allergy Verified 12/26/18 14:29 Home Medications: Ambulatory Orders Lisinopril [Prinivil -] 10 mg PO HS 08/14/12 Warfarin Sodium [Coumadin] 7 mg PO HS 08/14/12 Atorvastatin Ca [Lipitor] 40 mg PO HS 11/12/18 Sulfamethoxazole/Trimethoprim [Bactrim Ds -] 1 tab PO BID #14 tablet 12/26/18 Anemia: No Asthma: No Cancer: Yes (kidney mass removed 2003) Cardiac Disorders: Yes (CA bypassx4 2003, afib, anti-phospholipid syndrome) CVA: No COPD: No CHF: No Dementia: No Diabetes: No GI Disorders: No Disorders: Yes (BPH) HTN: Yes (pt denies) Hypercholesterolemia: Yes Liver Disease: No Seizures: No Thyroid Disease: No - Surgical History Abdominal Surgery: No Appendectomy: No Cardiac Surgery: Yes (CABG *4 2003) Cholecystectomy: No Lung Surgery: No Neurologic Surgery: No Orthopedic Surgery: No - Suicide/Smoking/Psychosocial Hx Smoking Status: No Smoking History: Never smoked Have you smoked in the past 12 months: No Number of Cigarettes Smoked Daily: 0 If you are a former smoker, when did you quit?: 2002 Information on smoking cessation initiated: No Hx Alcohol Use: No Drug/Substance Use Hx: No Substance Use Type: Alcohol Hx Substance Use Treatment: No *Physical Exam - Vital Signs Last Vital Signs Temp Pulse Resp BP Pulse Ox 98.4 F 85 16 135/85 100 12/26/18 14:29 12/26/18 14:29 12/26/18 14:29 12/26/18 14:29 12/26/18 14:29 Vital Signs - Vital Signs #1 Blood Pressure: 147/82 (@16:30) MAP: 103 BP Location: Right Arm Blood Pressure Position: Sitting Pulse Rate: 72 O2 Sat by Pulse Oximetry (%): 97 Oxygen Delivery Method: Room Air ED Treatment Course - LABORATORY CBC & Chemistry Diagram: 12/26/18 15:50 12/26/18 15:50 *DC/Admit/Observation/Transfer Diagnosis at time of Disposition: Hematuria Qualifiers: Hematuria type: gross Qualified Code(s): R31.0 - Gross hematuria UTI (urinary tract infection) Qualifiers: Urinary tract infection type: acute cystitis Hematuria presence: with hematuria Qualified Code(s): N30.01 - Acute cystitis with hematuria - Discharge Dispostion Disposition: HOME Condition at time of disposition: Good Decision to Admit order: No - Prescriptions Prescriptions: Sulfamethoxazole/Trimethoprim [Bactrim Ds -] 1 tab PO BID #14 tablet - Referrals Referrals: [place] [facility] [Primary Care Provider] - Carlin Carroll MD [Staff Physician] - - Patient Instructions Printed Discharge Instructions: DI for Urinary Tract Infection (UTI) Additional Instructions: You were seen today for low blood pressure measured at home earlier this morning and persistent painless hematuria. Your vitals signs were normal today. Your blood tests showed you are not severely anemic, that your kidney function is normal, and that your INR continues to come down from Monday. Your urinalysis shows you might possibly have a urinary tract. I have sent a prescription for an antibiotic called OCP Collectiverim to your pharmacy. Take as directed on the package insert. Do not exceed the recommended dosage. Continue to take your iron supplements and other medications as previously prescribed. Contact your crumb packer next week as previously arranged. You can also follow up with Dr. Carroll as needed. He was made aware of your ED visit today. Lastly, you can follow up with your primary care doctor. You will need to call to make an appointment. The number is included in this packet. A copy of today s results are attached to this packet. Take it to the appointment so your doctor can review them. Go to the nearest emergency department if your condition worsens or you feel like you need additional emergency evaluation. Print Language: NORWEGIAN - Post Discharge Activity
[2018-12-26 16:17] LABS: BASO % 0.5 % (0-2.0); EOS % 1.4 % (0-4.5); HEMATOCRIT 32.1 % (35.4-49); HEMOGLOBIN 10.5 GM/dl (11.7-16.9); LYMPH % 20.6 % (8-40); MCH 29.5 pg (25.7-33.7); MCHC 32.8 g/dl (32.0-35.9); MEAN CELL VOLUME 90.1 fl (80-96); MEAN PLT VOLUME 9.4 fl (7.5-11.1); MONO % 10.4 % (3.8-10.2); NEUT % 67.1 % (42.8-82.8); PLATELET COUNT 174 K/MM3 (134-434); RBC 3.56 M/mm3 (4.00-5.60); RDW 15.4 % (11.9-15.9); WHITE BLOOD COUNT 7.2 K/mm3 (4.0-10.8)
[2018-12-26 16:25] LABS: INR 1.18 (0.82-1.09); PROTHROMBIN TIME (PATIENT) 13.2 SEC (10.2-13.0)
[2018-12-26 16:27] LABS: CALCIUM 9.2 mg/dl (8.5-10); CREATININE 1.1 mg/dl (0.55-1.3); POTASSIUM 4.5 mmol/L (3.5-5.1)
[2018-12-26 16:33] VITALS: BP 147/82; PULSE 72
[2018-12-26] MEDS ORDERED: SULFAMETHOXAZOLE/TRIMETHOPRIM 800MG/160MG D.S. TABLET PO ONE (16:58)
== END 2018-12-26 17:05 | disposition home or self-care (01) ==
LOC: FER 14:27
DX: R31.0 Gross hematuria (principal); N30.01 Acute cystitis with hematuria; Z87.891 Personal history of nicotine dependence; I10 Essential (primary) hypertension; Z95.1 Presence of aortocoronary bypass graft; I48.91 Unspecified atrial fibrillation
CPT/HCPCS: 36415; 80048; 81003; 81015; 85025; 85610; 87086; 99282-25

== ENCOUNTER 2019-02-23 20:05 | Emergency (ER) | payer OTHER ==
[2019-02-23 20:23] VITALS: BP 148/94; PULSE 67; TEMP 97.8; BMI 25.7
--- NOTE | 2019-02-23 20:30 | PDOC ---
Documentation entered by Acacia Fierro SCRIBE, acting as scribe for Sienna Urrutia MD. Sienna Urrutia MD: This documentation has been prepared by the Vadim rojas Adrianna, SCRIBE, under my direction and personally reviewed by me in its entirety. I confirm that the documentation accurately reflects all work, treatment, procedures, and medical decision making performed by me. 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 Carroll b/sarah of enlarged prostate), and Antiphospholipid Syndrome, presenting with hypertension for 5 days. Patient notes his blood pressure has been elevated over the past week, where his baseline is usually 110 systolic but he has been ranging in the 150s. He reports being compliant with his Lisinopril at this time, but notes he has multiple stressors in his life recently (daughter was diagnosed with CHF, passed a few months ago, dog is sick). Patient went to Urgent Care for this complaint two days ago and saw a PA in his PCPs office yesterday, where both told him that he needed to follow up with his PCP for possible change in HTN medication dosage. Patient endorses some associated dizziness at this time, but is otherwise asymptomatic. Denies fever, chills, chest pain, SOB, palpitation, weakness, N, V, D, abdominal pain, bladder and bowel problems, leg swelling, rash. No sick contacts or travel. No new changes in medications. No suspicious food intake. 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 Carroll b/sarah of enlarged prostate), and Antiphospholipid Syndrome Social history: Lives with family. No tobacco, ETOH or drug use. Surgical history: Kidney CA mass resection, CABG x4, Meds: as documented in EMR Family history: noncontributory PMD: Dr. [place] Urologist: Dr. Carroll Review of systems Constitutional: no fevers or chills. No weakness HEENT: +dizziness. no headache No congestion. No visual/hearing disturbances. CVS: no cp or syncope. Resp: no sob. No cough. Gastrointestinal: no abdominal pain, nausea or vomiting. Genitourinary: no urinary sx, hematuria. MUSCULOSKELETAL: No joint pain and swelling. No neck or back pain. SKIN: no redness or skin changes, no discharge, no rash. No wounds. Hematologic: no easy bruising/bleeding. NEUROLOGIC: +dizziness. No headache, LOC or altered mental status. No weakness, numbness or tingling. Psych: no anxiety or depression Allergic/Immunologic: no allergies All other systems reviewed and negative, or as documented in HPI. Physical exam General: Well appearing, awake and alert, NAD. HEENT: NCAT, PERRL, EOMI, clear conjunctiva, anicteric, moist mucus membranes, clear oropharynx, no oral lesions.. Neck: neck supple, FROM Resp: CTAB, normal and even respirations, no respiratory distress CVS: irregularly irregular, no murmurs, 2+ peripheral pulses throughout, no peripheral edema Abdomen: soft, NTND, no rebound or guarding. Back: nontender, normal inspection and ROM MSK: no edema, COPELAND x4, ROM intact. No clubbing or cyanosis. normal bulk and tone. Extremities: no calf tenderness Neuro: alert, oriented appropriately; no focal neurologic deficits Psych: Calm and cooperative Skin: warm and well perfused, cap refill <2 sec, normal color 02/23/19 21:17 02/23/19 21:19 Past History - Past Medical History Allergies/Adverse Reactions: Allergies Allergy/AdvReac Type Severity Reaction Status Date / Time No Known Allergies Allergy Verified 12/26/18 14:29 Home Medications: Ambulatory Orders Lisinopril [Prinivil -] 10 mg PO HS 08/14/12 Warfarin Sodium [Coumadin] 7 mg PO HS 08/14/12 Atorvastatin Ca [Lipitor] 40 mg PO HS 11/12/18 Anemia: No Asthma: No Cancer: Yes (kidney mass removed 2003) Cardiac Disorders: Yes (CA bypassx4 2003, afib, anti-phospholipid syndrome) CVA: No COPD: No CHF: No Dementia: No Diabetes: No GI Disorders: No Disorders: Yes (BPH) HTN: Yes (pt denies) Hypercholesterolemia: Yes Liver Disease: No Seizures: No Thyroid Disease: No - Surgical History Abdominal Surgery: No Appendectomy: No Cardiac Surgery: Yes (CABG *4 2003) Cholecystectomy: No Lung Surgery: No Neurologic Surgery: No Orthopedic Surgery: No - Psycho Social/Smoking Cessation Hx Smoking Status: No Smoking History: Never smoked Have you smoked in the past 12 months: No Number of Cigarettes Smoked Daily: 0 If you are a former smoker, when did you quit?: 2002 Hx Alcohol Use: No Drug/Substance Use Hx: No Substance Use Type: Alcohol Hx Substance Use Treatment: No *Physical Exam - Vital Signs Last Vital Signs Temp Pulse Resp BP Pulse Ox 97.8 F 67 16 148/94 100 02/23/19 20:06 02/23/19 20:06 02/23/19 20:06 02/23/19 20:06 02/23/19 20:06 Heart Score/ECG Review #1 ECG reviewed & interpreted by me at: 20:55 General ECG Interpretation: Normal Rate, Normal Intervals Compared to previous ECG there are: No significant change 02/23/19 21:17 Atrial fibrillation 73 bpm. nonspecific T wave abnormalities Medical Decision Making - Medical Decision Making 02/23/19 21:19 Vital Signs Temp Pulse Resp BP Pulse Ox 97.8 F 67 16 148/94 100 02/23/19 20:06 02/23/19 20:06 02/23/19 20:06 02/23/19 20:06 02/23/19 20:06 VS reviewed wnl BP 148/94, asymptomatic no cp or sob intermittent dizziness, but neuro intact and no acute sx currently EKG Afib unchanged from previous no indication for testing, doubt organ damage and no indication for treatment, as risk of hypoperfusion and CVA. recheck BP with PMD and avoid stressors that could be triggers for his elevated bp Discharge - Discharge Information Problems reviewed: Yes Clinical Impression/Diagnosis: Encounter for medical screening examination, High blood pressure Condition: Stable Disposition: HOME - Admission No - Follow up/Referral Referrals: [facility] [Primary Care Provider] - - Patient Discharge Instructions Patient Printed Discharge Instructions: DI for High Blood Pressure, How to Monitor Your Blood Pressure at Home Additional Instructions: 1) Please follow-up with your primary care doctor in the next 1-2 days. Please call tomorrow for for any urgent issues. you have been evaluated for your high blood pressure your doctor should review your medications and adjust, and recheck your blood pressure 2) If you have any worsening of symptoms or any other concerns please return to the ED immediately. Return if worsening symptoms including fevers, headache, vomiting, visual or hearing disturbances, abdominal pain, chest pain, shortness of breath, syncope, dehydration, inability to take things by mouth/vomiting, altered mental status, or worsening concerning symptoms. 3) Please continue taking your home medications as directed. Stay well hydrated and rest adequately. Make an appointment. If you cannot follow-up with your primary care doctor please return to the ED - Post Discharge Activity
--- NOTE | 2019-02-25 13:22 | EKG ---
Test Reason : Blood Pressure : / mmHG Vent. Rate : 073 BPM Atrial Rate : 060 BPM P-R Int : 000 ms QRS Dur : 094 ms QT Int : 410 ms P-R-T Axes : 000 067 003 degrees QTc Int : 451 ms ATRIAL FIBRILLATION LOW VOLTAGE QRS NONSPECIFIC T WAVE ABNORMALITY ABNORMAL ECG WHEN COMPARED WITH ECG OF 06-OCT-2018 11:53, PREMATURE VENTRICULAR COMPLEXES NO LONGER SEEN Confirmed by ANA PAULA LARIOS MD ([id number]) on 02/25/2019 1:22:43 PM Referred By: RUFINA LOPEZ Confirmed By:ANA PAULA LARIOS MD
== END 2019-02-23 21:21 | disposition home or self-care (01) ==
LOC: FER 20:05
DX: Z13.9 Encounter for screening, unspecified (principal); I10 Essential (primary) hypertension; E78.5 Hyperlipidemia, unspecified; Z86.718 Personal history of other venous thrombosis and embolism; Z79.01 Long term (current) use of anticoagulants; I48.91 Unspecified atrial fibrillation; Z95.1 Presence of aortocoronary bypass graft; Z85.89 Personal history of malignant neoplasm of other organs and systems
CPT/HCPCS: 93005; 99281-25

== ENCOUNTER 2019-03-18 18:50 | Emergency (ER) | payer OTHER ==
[2019-03-18 19:48] VITALS: BP 135/78; PULSE 102; TEMP 99.7; BMI 25.7
[2019-03-18] MEDS ORDERED: AZITHROMYCIN 250 MG TABLET PO ONE (21:50)
[2019-03-18] MEDS ORDERED: AZITHROMYCIN 500 MG TABLET ONE (21:51)
--- NOTE | 2019-03-18 23:25 | PDOC ---
Documentation entered by Mary Beth Vega SCRIBE, acting as scribe for Katie Sher MD. Katie Sher MD: This documentation has been prepared by the caroleibeGary Lincy, SCRIBE, under my direction and personally reviewed by me in its entirety. I confirm that the documentation accurately reflects all work, treatment, procedures, and medical decision making performed by me. History of Present Illness - General Chief Complaint: Respiratory Stated Complaint: FLU History Source: Patient Exam Limitations: No Limitations - History of Present Illness Initial Comments: 03/18/19 21:59 The patient is a 83 year old male with a past medical history significant for HTN, HLD, CAD s/p CABG, AFIb (on Coumadin), BPH s/p TURP (11/13/[address] Carroll), Renal CA (in remission) and antiphospholipid syndrome, compliant with all medication who presents to the emergency department with 6 days of flu-like symptoms. The patient reports about a week ago he has sick contact with his brother, who had the flu. The patient reports following that interaction, he started to have elevated temperature and a cough. The patient reports hes been having a dry cough with phlegm production after nasal decongestant treatment. The patient reports taking Theraflu without relief. The patient reports associated symptoms of a runny nose. The patient reports he went to work today, and when he got home, his temperature was noted to be 104, associated with elevated blood pressure. 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 Denies shortness of breath. Allergies: NKDA Social history: Lives with family and is employed. No tobacco, ETOH or drug use. Surgical history: Kidney CA mass resection, CABG x4, TURP PMD: Dr. [place] Urologist: Dr. Carroll Past History - Past Medical History Allergies/Adverse Reactions: Allergies Allergy/AdvReac Type Severity Reaction Status Date / Time No Known Allergies Allergy Verified 12/26/18 14:29 Home Medications: Ambulatory Orders Lisinopril [Prinivil -] 10 mg PO HS 08/14/12 Warfarin Sodium [Coumadin] 7 mg PO HS 08/14/12 Atorvastatin Ca [Lipitor] 40 mg PO HS 11/12/18 Amlodipine Besylate 2.5 mg PO DAILY 03/18/19 Azithromycin 250 mg PO DAILY #4 tablet 03/18/19 Ibuprofen [Motrin Ib] 400 mg PO TID PRN 03/18/19 Pheniramine/P-Eph/Acetaminophn [Theraflu Flu & Sore Throat] 1 each PO BID PRN Phenylephrine/Acetaminophn/Cpm [Cvs Sinus Congestion Pain Cplt] 1 each PO BID PRN 03/18/19 Anemia: No Asthma: No Cancer: Yes (kidney mass removed 2003) Cardiac Disorders: Yes (CA bypassx4 2003, afib, anti-phospholipid syndrome) CVA: No COPD: No CHF: No Dementia: No Diabetes: No GI Disorders: No Disorders: Yes (BPH) HTN: Yes (pt denies) Hypercholesterolemia: Yes Liver Disease: No Seizures: No Thyroid Disease: No - Surgical History Abdominal Surgery: No Appendectomy: No Cardiac Surgery: Yes (CABG *4 2003) Cholecystectomy: No Lung Surgery: No Neurologic Surgery: No Orthopedic Surgery: No - Psycho Social/Smoking Cessation Hx Smoking Status: No Smoking History: Never smoked Have you smoked in the past 12 months: No Number of Cigarettes Smoked Daily: 0 If you are a former smoker, when did you quit?: 2002 Hx Alcohol Use: No Drug/Substance Use Hx: No Substance Use Type: Alcohol Hx Substance Use Treatment: No Review of Systems - Review of Systems Able to Perform ROS?: Yes Comments:: 03/18/19 21:59 CONSTITUTIONAL: +fever. Pt denies Chills, weakness. HEENT: +runny nose. denies vision changes, sore throat RESPIRATORY: Denies cough, sob, hemoptysis CARDIAC: +elevated blood pressure. denies chest pain, palpitations, lightheadedness, leg swelling ABD/GI: denies abd pain, nausea, vomiting, blood per rectum, melena, diarrhea : denies dysuria, frequency, discharge MSK: denies back pain, joint swelling SKIN: denies bruising, erythema, rash NEUROLOGICAL: denies headache, numbness, focal weakness, tingling, ataxia, weakness HEMATOLOGICAL: denies anemia, easy bruising, easy bleeding *Physical Exam - Vital Signs Last Vital Signs Temp Pulse Resp BP Pulse Ox 99.7 F H 102 H 18 135/78 97 03/18/19 18:52 03/18/19 18:52 03/18/19 18:52 03/18/19 18:52 03/18/19 18:52 - Physical Exam Comments: 03/18/19 22:03 GENERAL: The patient is awake, alert, and fully oriented, in no acute distress. HEAD: Normal with no signs of trauma. EYES: Pupils equal, round and reactive to light, extraocular movements intact, sclera anicteric, conjunctiva clear with no pallor. ENT: Ears normal, nares patent, oropharynx clear without exudates. +dry mucous membranes. NECK: Normal range of motion, supple without lymphadenopathy, JVD, or masses. LUNGS: Breath sounds equal, clear to auscultation bilaterally. No wheezes/ crackles. HEART: Regular rate and rhythm, normal S1 and S2 without murmur or rub. ABDOMEN: Soft/nontender/nondistended. BS wnl. No guarding or rebound. No palpable masses. No hepatosplenomegaly. EXTREMITIES: Normal range of motion, no edema. No clubbing or cyanosis. No cords, erythema, or tenderness. NEUROLOGICAL: Cranial nerves II through XII grossly intact. Normal speech, normal gait. PSYCH: Normal mood, normal affect. SKIN: Warm, Dry, normal turgor, no rashes or lesions noted. ED Treatment Course - ADDITIONAL ORDERS Additional order review: Laboratory Results 03/18/19 19:50 Urine Color Yellow Urine Appearance Clear Urine pH 5.0 D Urine Protein 2+ H Urine Glucose (UA) Negative Urine Ketones Negative Urine Blood Negative Urine Nitrite Negative Urine Bilirubin 1+ H Urine Urobilinogen 1.0 Ur Leukocyte Esterase Trace H ED Progress Note - Progress Note Progress Note: As noted above, this 83-year-old man with multiple medical problems, currently taking antihypertensives and warfarin presents with 1 week history of upper respiratory symptoms and nonproductive cough associated with fever. 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 This evening, he felt fatigued and cold. Fever was measured at 104 degrees and he was hypertensive, according to his home health aide. He was given Motrin and the patient took an extra small dose of amlodipine as instructed by his PMD when he experiences an episode of blood pressure elevation. Exam as noted: Patient is in no respiratory distress; oral temperature is 99.7, his heart rate is 102 with blood pressure 135/78. His oxygen saturation is 97% with respiratory rate of 18/minute. Lungs are clear throughout with good air exchange. Clinical presentation consistent with viral syndrome with persistent respiratory symptoms. Treatment of the possible secondary development of bacterial bronchitis warranted because of the length of time of his productive cough as well as intermittent fever. Although he has no history of asthma or COPD, because of his multiple medical problems, antibiotic therapy is warranted. Because of interaction with warfarin with multiple antibiotics, azithromycin will be given because of its mild interaction with warfarin. First dose of azithromycin 500 mg given orally here. Prescription for 250 mg daily for the next 4 days sent to his pharmacy. Because of the possibility of antibiotic interaction with the warfarin, he should contact his PMD and let him know that he has been started on azithromycin. Patient should rest, drink plenty of fluids and consider using a mucolytic agent such as guaifenesin. He should return to the ER if he has high fever, shortness of breath, severe cough or if he develops chest pain/vomiting Discharge - Discharge Information Problems reviewed: Yes Clinical Impression/Diagnosis: Bronchitis Condition: Stable Disposition: HOME - Additional Discharge Information Prescriptions: Azithromycin 250 mg PO DAILY #4 tablet - Follow up/Referral Referrals: [facility] [Primary Care Provider] - - Patient Discharge Instructions Patient Printed Discharge Instructions: DI for Acute Bronchitis Additional Instructions: Rest; drink plenty of water Continue medications as prescribed Azithromycin 250 mg daily for 4 more days Consider Mucinex or other mucolytic agent to loosen phlegm Let your doctor know that you have been started on azithromycin (5-day course) Return to ER if you have shortness of breath/persistent high fever/vomiting/ chest pain Follow-up with your doctor within 1 week - Post Discharge Activity
== END 2019-03-18 22:01 | disposition home or self-care (01) ==
LOC: FER 18:50
DX: J40 Bronchitis, not specified as acute or chronic (principal); Z87.891 Personal history of nicotine dependence; Z95.1 Presence of aortocoronary bypass graft; Z85.9 Personal history of malignant neoplasm, unspecified; N40.0 Benign prostatic hyperplasia without lower urinary tract symptoms; I10 Essential (primary) hypertension; E78.00 Pure hypercholesterolemia, unspecified
CPT/HCPCS: 81003; 81015; 99281-25

== ENCOUNTER 2019-12-02 08:32 | Day surgery (SDC) | payer OTHER ==
[2019-11-27 17:33] VITALS: BMI 27.3
[2019-12-02] MEDS ORDERED: LIDOCAINE HCL/PF 2% SDV 5ML VIAL ONE (09:06)
[2019-12-02] MEDS ORDERED: PROPOFOL 20 ML ONE ×2 (09:06)
[2019-12-02] MEDS ORDERED: ETOMIDATE 20 MG/10 ML AMPUL IVPUSH ONE (09:35)
[2019-12-02 10:22] VITALS: TEMP 97.7
[2019-12-02 11:15] VITALS: BP 131/72; PULSE 69
== END 2019-12-02 11:00 | disposition home or self-care (01) ==
LOC: FASU-ENDO 08:32
PROVIDERS: ATTEND Internal Medicine Gastroenterology
PROC: 0D5H8ZZ Destruction of Cecum, Via Natural or Artificial Opening Endoscopic (ICD-10-PCS; principal; 2019-12-02 09:42)
DX: D64.9 Anemia, unspecified (principal); K55.20 Angiodysplasia of colon without hemorrhage; K57.00 Diverticulitis of small intestine with perforation and abscess without bleeding; R10.31 Right lower quadrant pain

== ENCOUNTER 2021-09-21 11:55 | Inpatient (IN) | payer OTHER ==
[2021-09-21 13:35] LABS: HEMATOCRIT 35.5 % (35.4-49); HEMOGLOBIN 12.1 G/dL (11.7-16.9); MCH 30.9 pg (25.7-33.7); MCHC 34.1 g/dl (32.0-35.9); MEAN CELL VOLUME 90.6 fl (80-96); MEAN PLT VOLUME 9.1 fl (7.5-11.1); PLATELET COUNT 107.7 10^3/uL (134-434); RBC 3.92 10^6/uL (4.00-5.60); RDW 14.6 % (11.9-15.9); WHITE BLOOD COUNT 5.2 10^3/uL (4.0-10.8)
[2021-09-21 13:36] LABS: INR 1.69 (0.83-1.09); PROTHROMBIN TIME (PATIENT) 19.5 SEC (9.7-13.0)
[2021-09-21 13:38] LABS: ACTIVATED PTT 37.9 SECONDS (25.2-36.5)
[2021-09-21 13:44] LABS: ALBUMIN 3.6 g/dl (3.4-5.0); BILIRUBIN,TOTAL 0.8 mg/dl (0.2-1); CALCIUM 9.2 mg/dl (8.5-10); CREATININE 1.4 mg/dl (0.55-1.3); TOT PROT 6.4 g/dl (6.4-8.2)
[2021-09-21 14:11] LABS: ANISOCYTOSIS 1+; PLATELET ESTIMATE DECREASED
[2021-09-21] MEDS ORDERED: SODIUM CHLORIDE 0.9% 500 ML INFUS.BAG IV ONE (15:08)
[2021-09-21] MEDS ORDERED: ACETAMINOPHEN 1000 MG/100 ML BAG IVPB ONE (15:20)
[2021-09-21] MEDS ORDERED: AZITHROMYCIN IVPB 500 MG in DEXTROSE 5%-WATER - 250 ML IVPB ONE (16:05)
[2021-09-21] MEDS ORDERED: CEFTRIAXONE 1 GM in DEXTROSE 5%-WATER - 100 ML IVPB ONE (16:05)
[2021-09-21] MEDS ORDERED: AZITHROMYCIN 500 MG VIAL IVPB ONE (16:27)
[2021-09-21] MEDS ORDERED: cefTRIAXone SODIUM 1 GM VIAL ONE (16:27)
[2021-09-21] MEDS ORDERED: WARFARIN NA 2 MG TABLET PO ONE (18:00)
[2021-09-21 18:18] VITALS: BMI 28.9
[2021-09-21] MEDS ORDERED: ACETAMINOPHEN 325 MG TABLET (FP) PO PRN (21:28)
[2021-09-21] MEDS ORDERED: ONDANSETRON 4 MG/2 ML VIAL IVPUSH ONE (22:14)
[2021-09-21] MEDS ORDERED: methylPREDNISolone NA SUCC 125 MG/2 ML VIAL IVPUSH ONE (22:38)
[2021-09-21] MEDS: ALBUTEROL SO4 0.083% IH SOL 2.5 MG/3 ML VIAL.NEB. NEB PRN (22:58)
[2021-09-22] MEDS: TAMSULOSIN HCL 0.4 MG CAP PO SCH (08:29)
[2021-09-22 08:50] LABS: URINE MUCUS 1+
[2021-09-22] MEDS ORDERED: DEXTROSE 5%-WATER 100 ML IVPB ONE (09:26)
[2021-09-22] MEDS: CEFTRIAXONE 2 GM in DEXTROSE 5%-WATER 100 ML IVPB SCH (09:35)
[2021-09-22] MEDS: AZITHROMYCIN IVPB 500 MG/250 ML BAG IVPB SCH (09:35)
[2021-09-22] MEDS ORDERED: methylPREDNISolone NA SUCC 40 MG/1 ML VIAL IVPUSH SCH (10:00)
[2021-09-22] MEDS: ALBUTEROL SO4 2.5/IPRATROPIUM 0.5 INH SOL 3 ML VIAL.NEB. NEB SCH ×2 (14:24→21:14)
[2021-09-22 14:52] LABS: VENOUS BASE EXCESS -8.3 mmol/L (-2-2); VENOUS O2 SATURATION 70.8 % (70-80); VENOUS PCO2 36.7 mmHg (38-52); VENOUS PH 7.294 (7.310-7.410)
[2021-09-22 15:11] LABS: LACTIC ACID 2.6 mmol/L (0.4-2.0)
[2021-09-22] MEDS: methylPREDNISolone NA SUCC 40 MG/1 ML VIAL IVPUSH SCH (18:33)
[2021-09-22] MEDS: ALBUTEROL SO4 0.083% IH SOL 2.5 MG/3 ML VIAL.NEB. NEB PRN (18:33)
[2021-09-22] MEDS: WARFARIN NA 3 MG TABLET PO SCH (21:15)
[2021-09-22] MEDS: ATORVASTATIN CA 40 MG TABLET (FP) PO SCH (21:15)
[2021-09-22] MEDS: LISINOPRIL 10 MG TABLET PO SCH (21:15)
[2021-09-22] MEDS ORDERED: PATIENT'S OWN MEDICATION (NON-FORMULARY) (Lisinopril [Prinivil -] 40 MG Tablet) PO SCH (22:00)
[2021-09-23] MEDS: methylPREDNISolone NA SUCC 40 MG/1 ML VIAL IVPUSH SCH ×3 (02:05→18:34)
[2021-09-23 08:22] LABS: INR 2.21 (0.83-1.09); PROTHROMBIN TIME (PATIENT) 25.6 SEC (9.7-13.0)
[2021-09-23 08:29] LABS: ALBUMIN 3.3 g/dl (3.4-5.0); BILIRUBIN,TOTAL 0.6 mg/dl (0.2-1); CALCIUM 8.9 mg/dl (8.5-10); CREATININE 1.2 mg/dl (0.55-1.3); TOT PROT 6.2 g/dl (6.4-8.2)
[2021-09-23 08:43] LABS: HEMATOCRIT 31.8 % (35.4-49); HEMOGLOBIN 10.8 G/dL (11.7-16.9); MCH 30.3 pg (25.7-33.7); RBC 3.57 10^6/uL (4.00-5.60); RDW 15.4 % (11.9-15.9); WHITE BLOOD COUNT 8.8 10^3/uL (4.0-10.8)
[2021-09-23] MEDS ORDERED: guaiFENesin/D-METHORPHAN HB 10 ML UNIT-DOSE CUPS PO PRN (09:01)
[2021-09-23] MEDS ORDERED: DEXTROSE 5%-WATER 100 ML IVPB ONE (09:46)
[2021-09-23] MEDS: ALBUTEROL SO4 2.5/IPRATROPIUM 0.5 INH SOL 3 ML VIAL.NEB. NEB SCH ×3 (09:52→20:27)
[2021-09-23] MEDS: guaiFENesin/D-METHORPHAN HB 10 ML UNIT-DOSE CUPS PO SCH ×3 (09:53→21:29)
[2021-09-23] MEDS: CEFTRIAXONE 2 GM in DEXTROSE 5%-WATER 100 ML IVPB SCH (09:53)
[2021-09-23] MEDS: TAMSULOSIN HCL 0.4 MG CAP PO SCH (09:53)
[2021-09-23] MEDS: AZITHROMYCIN IVPB 500 MG/250 ML BAG IVPB SCH (09:54)
[2021-09-23] MEDS ORDERED: SODIUM CHLORIDE 500 ML IV STA (10:16)
[2021-09-23 12:28] LABS: ADD RBC MORPHOLOGY YES; PLATELET ESTIMATE SLT DECREASE
[2021-09-23 12:30] LABS: ANISOCYTOSIS 1+
[2021-09-23] MEDS: FLUTICASONE PROP 0.05% 16 GM NASAL SPRAY NS SCH ×2 (12:49→22:30)
[2021-09-23] MEDS: ATORVASTATIN CA 40 MG TABLET (FP) PO SCH (21:28)
[2021-09-23] MEDS: LISINOPRIL 10 MG TABLET PO SCH (21:28)
[2021-09-23] MEDS: WARFARIN NA 3 MG TABLET PO SCH (21:28)
[2021-09-23] MEDS ORDERED: BENZOCAINE 20 % GEL TUBE MM PRN (23:31)
[2021-09-24] MEDS: methylPREDNISolone NA SUCC 40 MG/1 ML VIAL IVPUSH SCH ×2 (02:23→16:10)
[2021-09-24] MEDS: guaiFENesin/D-METHORPHAN HB 10 ML UNIT-DOSE CUPS PO SCH ×3 (06:15→21:15)
[2021-09-24] MEDS ORDERED: DEXTROSE 5%-WATER 100 ML IVPB ONE (09:32)
[2021-09-24] MEDS: AZITHROMYCIN IVPB 500 MG/250 ML BAG IVPB SCH (09:44)
[2021-09-24] MEDS: CEFTRIAXONE 2 GM in DEXTROSE 5%-WATER 100 ML IVPB SCH (09:46)
[2021-09-24] MEDS: ALBUTEROL SO4 2.5/IPRATROPIUM 0.5 INH SOL 3 ML VIAL.NEB. NEB SCH ×3 (09:48→19:57)
[2021-09-24] MEDS: TAMSULOSIN HCL 0.4 MG CAP PO SCH (09:49)
[2021-09-24] MEDS: FLUTICASONE PROP 0.05% 16 GM NASAL SPRAY NS SCH ×2 (09:50→21:14)
[2021-09-24 13:36] LABS: HEMATOCRIT 32.1 % (35.4-49); HEMOGLOBIN 10.9 G/dL (11.7-16.9); MCH 30.7 pg (25.7-33.7); MEAN CELL VOLUME 90.5 fl (80-96); MEAN PLT VOLUME 8.9 fl (7.5-11.1); PLATELET COUNT 150.4 10^3/uL (134-434); RBC 3.55 10^6/uL (4.00-5.60); RDW 15.4 % (11.9-15.9); WHITE BLOOD COUNT 12.3 10^3/uL (4.0-10.8)
[2021-09-24 13:44] LABS: ALBUMIN 3.3 g/dl (3.4-5.0); BILIRUBIN,TOTAL 0.5 mg/dl (0.2-1); CREATININE 1.1 mg/dl (0.55-1.3); INR 2.99 (0.83-1.09); MAGNESIUM 2.1 mg/dL (1.8-2.4); PROTHROMBIN TIME (PATIENT) 34.8 SEC (9.7-13.0); TOT PROT 6.2 g/dl (6.4-8.2)
[2021-09-24] MEDS: WARFARIN NA 3 MG TABLET PO SCH (21:13)
[2021-09-24] MEDS: LISINOPRIL 10 MG TABLET PO SCH (21:14)
[2021-09-24] MEDS: ATORVASTATIN CA 40 MG TABLET (FP) PO SCH (21:14)
[2021-09-25] MEDS: methylPREDNISolone NA SUCC 40 MG/1 ML VIAL IVPUSH SCH (03:09)
[2021-09-25] MEDS: guaiFENesin/D-METHORPHAN HB 10 ML UNIT-DOSE CUPS PO SCH (07:00)
[2021-09-25 08:02] LABS: HEMATOCRIT 32.8 % (35.4-49); MCH 30.3 pg (25.7-33.7); MCHC 33.6 g/dl (32.0-35.9); MEAN PLT VOLUME 9.3 fl (7.5-11.1); PLATELET COUNT 153.2 10^3/uL (134-434); RBC 3.64 10^6/uL (4.00-5.60); RDW 15.6 % (11.9-15.9); WHITE BLOOD COUNT 10.7 10^3/uL (4.0-10.8)
[2021-09-25] MEDS: ALBUTEROL SO4 2.5/IPRATROPIUM 0.5 INH SOL 3 ML VIAL.NEB. NEB SCH (08:18)
[2021-09-25] MEDS: TAMSULOSIN HCL 0.4 MG CAP PO SCH (08:18)
[2021-09-25 08:23] LABS: INR 3.39 (0.83-1.09); PROTHROMBIN TIME (PATIENT) 39.5 SEC (9.7-13.0)
[2021-09-25 09:04] LABS: ALBUMIN 3.2 g/dl (3.4-5.0); BILIRUBIN,TOTAL 0.6 mg/dl (0.2-1); CALCIUM 9.3 mg/dl (8.5-10); CREATININE 1.1 mg/dl (0.55-1.3); MAGNESIUM 2.1 mg/dL (1.8-2.4)
[2021-09-25] MEDS ORDERED: DEXTROSE 5%-WATER 100 ML IVPB ONE (09:23)
[2021-09-25] MEDS: FLUTICASONE PROP 0.05% 16 GM NASAL SPRAY NS SCH (09:27)
[2021-09-25] MEDS: CEFTRIAXONE 2 GM in DEXTROSE 5%-WATER 100 ML IVPB SCH (09:28)
[2021-09-25] MEDS ORDERED: predniSONE 20 MG TABLET (UD) PO ONE (09:56)
[2021-09-25] MEDS: AZITHROMYCIN IVPB 500 MG/250 ML BAG IVPB SCH (10:28)
[2021-09-25 11:03] VITALS: BP 146/81; PULSE 74; TEMP 97.6
[2021-09-25] MEDS ORDERED: SODIUM POLYSTYRENE SULFONATE 15 GM/60 ML BOTTLE PO ONE (11:17)
[2021-09-25 12:10] LABS: PLATELET ESTIMATE ADEQUATE
[2021-09-25 12:12] LABS: ANISOCYTOSIS 1+; OVALOCYTE RARE
== END 2021-09-25 13:45 | disposition home or self-care (01) | DRG 190 ==
LOC: FER 11:55 → FM/S 15:29 → OBSVTOIN 15:29
PROVIDERS: ADMIT Internal Medicine; ATTEND Nurse Practitioner Family
DX: J44.0 Chronic obstructive pulmonary disease with (acute) lower respiratory infection (principal); J44.1 Chronic obstructive pulmonary disease with (acute) exacerbation; J18.9 Pneumonia, unspecified organism; D68.61 Antiphospholipid syndrome; I48.20 Chronic atrial fibrillation, unspecified; I25.10 Atherosclerotic heart disease of native coronary artery without angina pectoris; J96.01 Acute respiratory failure with hypoxia; I48.91 Unspecified atrial fibrillation; I10 Essential (primary) hypertension; E86.0 Dehydration; N40.0 Benign prostatic hyperplasia without lower urinary tract symptoms; E78.5 Hyperlipidemia, unspecified; Z86.718 Personal history of other venous thrombosis and embolism; Z85.53 Personal history of malignant neoplasm of renal pelvis; Z95.1 Presence of aortocoronary bypass graft; Z79.01 Long term (current) use of anticoagulants
CPT/HCPCS: 36415; 71275-TC; 80053; 81003; 81015; 82570; 82803; 83605; 83735; 83880; 84300; 84484; 85025; 85027; 85610; 85730; 87040; 87070; 87205; 87804; 87899; 93005; 94640; 97116-GP; 97162-GP; 99285-25; C9803-CS; U0003; U0005

== ENCOUNTER 2022-10-08 14:00 | Inpatient (IN) | payer OTHER ==
[2022-10-08] MEDS ORDERED: SODIUM CHLORIDE 2,368 ML IV ONE (14:24)
[2022-10-08] MEDS ORDERED: ACETAMINOPHEN 1000 MG/100 ML BAG IVPB ONE (14:25)
[2022-10-08 15:00] LABS: INR 4.8 (0.83-1.09); PROTHROMBIN TIME (PATIENT) 56.1 SEC (9.7-13.0)
[2022-10-08] MEDS ORDERED: ACETAMINOPHEN INJECTION 100 ML IVPB ONE (15:00)
[2022-10-08 15:02] LABS: ACTIVATED PTT 54.4 SECONDS (25.2-36.5)
[2022-10-08 15:06] LABS: HEMATOCRIT 37.6 % (35.4-49); HEMOGLOBIN 12.5 G/dL (11.7-16.9); MCH 30.6 pg (25.7-33.7); MCHC 33.2 g/dl (32.0-35.9); MEAN CELL VOLUME 92.1 fl (80-96); MEAN PLT VOLUME 11.4 fl (7.5-11.1); PLATELET COUNT 142.5 10^3/uL (134-434); RBC 4.08 10^6/uL (4.00-5.60); RDW 19.5 % (11.9-15.9); WHITE BLOOD COUNT 9.4 10^3/uL (4.0-10.8)
[2022-10-08 15:08] LABS: ALBUMIN 3.9 g/dl (3.4-5.0); BILIRUBIN,TOTAL 0.4 mg/dl (0.2-1); CALCIUM 9.4 mg/dl (8.5-10); CREATININE 1.6 mg/dl (0.55-1.3); POTASSIUM 4.6 mmol/L (3.5-5.1); TOT PROT 6.8 g/dl (6.4-8.2)
[2022-10-08 15:35] LABS: PLATELET ESTIMATE ADEQUATE
[2022-10-08 16:18] LABS: VENOUS BASE EXCESS -4.3 mmol/L (-2-2); VENOUS O2 SATURATION 75.7 % (70-80); VENOUS PH 7.355 (7.310-7.410)
[2022-10-08] MEDS ORDERED: VANCOMYCIN 1 GM in D5W (PRE-DOCKED) 1,000 MG/250 ML (RESTRICTED TO ID ONLY IVPB ONE (16:46)
[2022-10-08] MEDS ORDERED: PIPERACILLIN/TAZOB 4.5 GM 4.5 GM in DEXTROSE 5%-WATER 100 ML IVPB ONE (16:46)
[2022-10-08] MEDS ORDERED: PIPERACILLIN/TAZOBACTAM 4.5 GM VIAL IVPB ONE (16:54)
[2022-10-08] MEDS ORDERED: VANCOMYCIN 1,000 MG VIAL (RESTRICTED TO ID ONLY) ONE (16:54)
[2022-10-08 17:05] LABS: EPITHELIAL CELLS RARE /hpf
[2022-10-08] MEDS ORDERED: DOCUSATE SODIUM 100 MG CAPSULE (FP) PO PRN (20:44)
[2022-10-08] MEDS: ATORVASTATIN CA 40 MG TABLET (FP) PO SCH (23:29)
[2022-10-08] MEDS: MAG HYDROX/ALH/SMC/DPHA/LIDO 240 ML MOUTHWASH MM SCH (23:30)
[2022-10-08] MEDS: SODIUM CHLORIDE 1,000 ML IV SCH (23:30)
[2022-10-08] MEDS: TAMSULOSIN HCL 0.4 MG CAP PO SCH (23:31)
[2022-10-08] MEDS: GABAPENTIN 100 MG CAPSULE PO SCH ×2 (23:31→23:39)
[2022-10-08] MEDS: valACYclovir HCL 500 MG TABLET (FP) PO SCH (23:32)
[2022-10-09] MEDS: MAG HYDROX/ALH/SMC/DPHA/LIDO 240 ML MOUTHWASH MM SCH ×5 (01:39→23:48)
[2022-10-09] MEDS: PIPERACILLIN/TAZOB 2.25 GM 2.25 GM in DEXTROSE 5%-WATER - 50 ML IVPB SCH ×3 (02:11→09:06)
[2022-10-09] MEDS ORDERED: MELATONIN 5 MG TABLETS PO PRN (02:55)
[2022-10-09] MEDS: GABAPENTIN 100 MG CAPSULE PO SCH ×3 (05:21→21:19)
[2022-10-09] MEDS ORDERED: VANCOMYCIN 1 GM/200 ML PREMIX BAG (RESTRICTED TO ID ONLY) IVPB SCH (06:00)
[2022-10-09] MEDS: valACYclovir HCL 500 MG TABLET (FP) PO SCH ×2 (09:07→21:19)
[2022-10-09 09:22] LABS: INR 5.53 (0.83-1.09); PROTHROMBIN TIME (PATIENT) 64.7 SEC (9.7-13.0)
[2022-10-09 09:24] LABS: ACTIVATED PTT 61.9 SECONDS (25.2-36.5)
[2022-10-09 09:30] LABS: CALCIUM 8.9 mg/dl (8.5-10); CREATININE 1.4 mg/dl (0.55-1.3); MAGNESIUM 1.8 mg/dL (1.8-2.4); PHOSPHOROUS 2.1 mg/dl (2.5-4.9); POTASSIUM 4.8 mmol/L (3.5-5.1)
[2022-10-09] MEDS: ACETAMINOPHEN 1000 MG/100 ML BAG IVPB PRN ×2 (09:52→18:50)
[2022-10-09] MEDS ORDERED: PHYTONADIONE 5 MG TABLET PO ONE (09:55)
[2022-10-09 10:25] LABS: BASO % 0.1 % (0-2.0); EOS % 2.2 % (0-4.5); HEMATOCRIT 33.4 % (35.4-49); HEMOGLOBIN 11.2 GM/dL (11.7-16.9); LYMPH % 11.6 % (8-40); MCH 29.2 pg (25.7-33.7); MCHC 33.4 g/dl (32.0-35.9); MEAN CELL VOLUME 87.6 fl (80-96); MEAN PLT VOLUME 9.1 fl (7.5-11.1); MONO % 11.6 % (3.8-10.2); NEUT % 74.5 % (42.8-82.8); PLATELET COUNT 109 10^3/uL (134-434); RBC 3.82 M/mm3 (4.00-5.60); RDW 19.5 % (11.9-15.9)
[2022-10-09] MEDS: CEFTRIAXONE 1 GM in DEXTROSE 5%-WATER - 50 ML IVPB SCH (15:41)
[2022-10-09] MEDS: ATORVASTATIN CA 40 MG TABLET (FP) PO SCH (21:18)
[2022-10-09] MEDS: SODIUM CHLORIDE 1,000 ML IV SCH (21:18)
[2022-10-09] MEDS: LISINOPRIL 10 MG TABLET PO SCH (21:19)
[2022-10-09] MEDS: TAMSULOSIN HCL 0.4 MG CAP PO SCH (21:22)
[2022-10-10] MEDS ORDERED: PIPERACILLIN/TAZOB 2.25 GM 2.25 GM in DEXTROSE 5%-WATER - 50 ML IVPB SCH (03:00)
[2022-10-10] MEDS ORDERED: VANCOMYCIN 1 GM/200 ML PREMIX BAG (RESTRICTED TO ID ONLY) IVPB SCH (06:00)
[2022-10-10] MEDS: GABAPENTIN 100 MG CAPSULE PO SCH ×3 (06:15→21:40)
[2022-10-10] MEDS: MAG HYDROX/ALH/SMC/DPHA/LIDO 240 ML MOUTHWASH MM SCH ×3 (06:15→18:22)
[2022-10-10 08:08] LABS: INR 2.61 (0.83-1.09); PROTHROMBIN TIME (PATIENT) 30.3 SEC (9.7-13.0)
[2022-10-10 08:17] LABS: ALBUMIN 3.4 g/dl (3.4-5.0); BILIRUBIN,TOTAL 0.5 mg/dl (0.2-1); CREATININE 1.2 mg/dl (0.55-1.3); POTASSIUM 4.4 mmol/L (3.5-5.1); TOT PROT 6.2 g/dl (6.4-8.2)
[2022-10-10] MEDS: CEFTRIAXONE 1 GM in DEXTROSE 5%-WATER - 50 ML IVPB SCH (09:08)
[2022-10-10] MEDS: valACYclovir HCL 500 MG TABLET (FP) PO SCH ×3 (09:08→21:41)
[2022-10-10 10:07] LABS: BASO % 0.4 % (0-2.0); HEMATOCRIT 34.6 % (35.4-49); HEMOGLOBIN 11.4 GM/dL (11.7-16.9); LYMPH % 10.9 % (8-40); MCHC 32.9 g/dl (32.0-35.9); MEAN CELL VOLUME 88.2 fl (80-96); MEAN PLT VOLUME 8.9 fl (7.5-11.1); MONO % 9.2 % (3.8-10.2); NEUT % 76.5 % (42.8-82.8); PLATELET COUNT 117 10^3/uL (134-434); RBC 3.93 M/mm3 (4.00-5.60); RDW 19.6 % (11.9-15.9); WHITE BLOOD COUNT 5.6 K/mm3 (4.0-10.0)
[2022-10-10] MEDS ORDERED: CEFTRIAXONE 1 GM in DEXTROSE 5%-WATER - 50 ML IVPB ONE (10:17)
[2022-10-10 14:25] LABS: ERYTHROCYTE SEDIMENTATION RATE 23 mm/hr (0-20)
[2022-10-10 16:14] VITALS: BMI 25.9
[2022-10-10] MEDS: ACETAMINOPHEN 325 MG TABLET (FP) PO PRN (19:48)
[2022-10-10] MEDS: TAMSULOSIN HCL 0.4 MG CAP PO SCH (21:40)
[2022-10-10] MEDS: ATORVASTATIN CA 40 MG TABLET (FP) PO SCH (21:41)
[2022-10-10] MEDS: LISINOPRIL 10 MG TABLET PO SCH (21:41)
[2022-10-11] MEDS: MAG HYDROX/ALH/SMC/DPHA/LIDO 240 ML MOUTHWASH MM SCH ×4 (00:27→22:06)
[2022-10-11] MEDS: GABAPENTIN 100 MG CAPSULE PO SCH ×3 (06:48→22:05)
[2022-10-11] MEDS: SODIUM CHLORIDE 1,000 ML IV SCH ×3 (06:49→22:06)
[2022-10-11] MEDS: valACYclovir HCL 500 MG TABLET (FP) PO SCH ×3 (06:49→22:06)
[2022-10-11] MEDS: GANCICLOVIR OU SCH ×2 (08:09→08:10)
[2022-10-11 08:18] LABS: ALBUMIN 3.4 g/dl (3.4-5.0); BILIRUBIN,TOTAL 0.5 mg/dl (0.2-1); CALCIUM 9.3 mg/dl (8.5-10); CREATININE 1.1 mg/dl (0.55-1.3); TOT PROT 6.3 g/dl (6.4-8.2)
[2022-10-11] MEDS: CEFTRIAXONE 2 GM in DEXTROSE 5%-WATER 100 ML IVPB SCH (10:07)
[2022-10-11 10:16] LABS: BASO % 0.2 % (0-2.0); HEMATOCRIT 34.7 % (35.4-49); HEMOGLOBIN 11.4 GM/dL (11.7-16.9); LYMPH % 17.7 % (8-40); MCH 28.9 pg (25.7-33.7); MCHC 32.9 g/dl (32.0-35.9); MEAN CELL VOLUME 87.8 fl (80-96); MEAN PLT VOLUME 9.1 fl (7.5-11.1); MONO % 10.9 % (3.8-10.2); NEUT % 68.2 % (42.8-82.8); PLATELET COUNT 138 10^3/uL (134-434); RBC 3.95 M/mm3 (4.00-5.60); RDW 18.6 % (11.9-15.9); WHITE BLOOD COUNT 5.3 K/mm3 (4.0-10.0)
[2022-10-11] MEDS: ACETAMINOPHEN 325 MG TABLET (FP) PO PRN (12:00)
[2022-10-11] MEDS ORDERED: WARFARIN NA 5 MG TABLET PO SCH (18:00)
[2022-10-11] MEDS ORDERED: WARFARIN NA 5 MG, WARFARIN NA 2 MG PO SCH (18:00)
[2022-10-11] MEDS ORDERED: SODIUM CHLORIDE NASAL SPRAY 44 ML BOTTLE NS PRN (21:00)
[2022-10-11] MEDS: ATORVASTATIN CA 40 MG TABLET (FP) PO SCH (22:05)
[2022-10-11] MEDS: LISINOPRIL 10 MG TABLET PO SCH (22:05)
[2022-10-11] MEDS: TAMSULOSIN HCL 0.4 MG CAP PO SCH (22:06)
[2022-10-12] MEDS: MAG HYDROX/ALH/SMC/DPHA/LIDO 240 ML MOUTHWASH MM SCH ×3 (02:14→12:49)
[2022-10-12] MEDS: valACYclovir HCL 500 MG TABLET (FP) PO SCH ×2 (06:17→14:04)
[2022-10-12] MEDS: GABAPENTIN 100 MG CAPSULE PO SCH ×2 (06:17→14:36)
[2022-10-12 06:34] VITALS: RESP 18; TEMP 98.5
[2022-10-12 08:59] LABS: CALCIUM 9.2 mg/dl (8.5-10); CREATININE 0.9 mg/dl (0.55-1.3); POTASSIUM 4.5 mmol/L (3.5-5.1)
[2022-10-12 09:21] VITALS: BP 136/75; PULSE 87
[2022-10-12 09:37] LABS: BASO % 0.3 % (0-2.0); EOS % 2.8 % (0-4.5); HEMATOCRIT 34.8 % (35.4-49); HEMOGLOBIN 11.7 GM/dL (11.7-16.9); LYMPH % 19.6 % (8-40); MCH 29.3 pg (25.7-33.7); MCHC 33.7 g/dl (32.0-35.9); MEAN CELL VOLUME 86.8 fl (80-96); MEAN PLT VOLUME 8.8 fl (7.5-11.1); MONO % 10.2 % (3.8-10.2); NEUT % 67.1 % (42.8-82.8); PLATELET COUNT 156 10^3/uL (134-434); RDW 18.9 % (11.9-15.9); WHITE BLOOD COUNT 5.7 K/mm3 (4.0-10.0)
[2022-10-12] MEDS: CEFTRIAXONE 2 GM in DEXTROSE 5%-WATER 100 ML IVPB SCH (10:12)
[2022-10-12] MEDS: ACETAMINOPHEN 325 MG TABLET (FP) PO PRN (13:05)
== END 2022-10-12 15:22 | disposition home or self-care (01) | DRG 125 ==
LOC: FER 14:00 → FM/S 17:02
PROVIDERS: ADMIT Internal Medicine; ATTEND Internal Medicine
PROC: 02HV33Z Insertion of Infusion Device into Superior Vena Cava, Percutaneous Approach (ICD-10-PCS; principal; 2022-10-12)
PROC: B518ZZA Fluoroscopy of Superior Vena Cava, Guidance (ICD-10-PCS; 2022-10-12)
DX: B02.33 Zoster keratitis (principal); D68.61 Antiphospholipid syndrome; B00.59 Other herpesviral disease of eye; I48.20 Chronic atrial fibrillation, unspecified; N17.9 Acute kidney failure, unspecified; N39.0 Urinary tract infection, site not specified; D68.9 Coagulation defect, unspecified; E87.1 Hypo-osmolality and hyponatremia; I25.10 Atherosclerotic heart disease of native coronary artery without angina pectoris; H32 Chorioretinal disorders in diseases classified elsewhere; N40.0 Benign prostatic hyperplasia without lower urinary tract symptoms; I10 Essential (primary) hypertension; B95.5 Unspecified streptococcus as the cause of diseases classified elsewhere; E78.5 Hyperlipidemia, unspecified; K12.1 Other forms of stomatitis; K12.30 Oral mucositis (ulcerative), unspecified; M25.59 Pain in other specified joint; R09.02 Hypoxemia; Z86.718 Personal history of other venous thrombosis and embolism; Z85.528 Personal history of other malignant neoplasm of kidney; Z95.1 Presence of aortocoronary bypass graft; Z79.01 Long term (current) use of anticoagulants; Z90.5 Acquired absence of kidney
CPT/HCPCS: 0241U-QW; 36415; 36569; 71045-TC-FY; 80048; 80053; 81003; 81015; 81374; 82550; 82803; 83605; 83735; 83880; 84100; 84484; 85025; 85610; 85651; 85730; 86140; 86618; 86780; 86850; 86900; 86901; 87040; 87070; 87086; 87186; 87529; 93005; 93306-TC; 99285-25

== ENCOUNTER 2022-10-13 11:10 | Day surgery (SDC) | payer OTHER ==
[2022-10-13] MEDS ORDERED: CEFTRIAXONE 2 GM in DEXTROSE 5%-WATER 100 ML IVPB ONE (11:30)
[2022-10-13 12:23] VITALS: BP 141/78; PULSE 82; RESP 18; TEMP 98.8
== END 2022-10-13 12:23 | disposition home or self-care (01) ==
LOC: FINFUSION 11:10 → FM/S 11:15 → FINFUSION 12:23
PROVIDERS: ATTEND Internal Medicine
DX: R78.81 Bacteremia (principal); N39.0 Urinary tract infection, site not specified; N17.9 Acute kidney failure, unspecified; B00.9 Herpesviral infection, unspecified; B00.50 Herpesviral ocular disease, unspecified; D68.61 Antiphospholipid syndrome
CPT/HCPCS: 96365

== ENCOUNTER 2022-10-14 11:20 | Day surgery (SDC) | payer OTHER ==
[2022-10-14] MEDS ORDERED: CEFTRIAXONE 2 GM in DEXTROSE 5%-WATER 100 ML IVPB ONE (11:45)
[2022-10-14 14:37] VITALS: BP 134/75; PULSE 72; RESP 18; TEMP 98.1
== END 2022-10-14 12:45 | disposition home or self-care (01) ==
LOC: FINFUSION 11:20 → FM/S 11:20 → FINFUSION 12:45
PROVIDERS: ATTEND Internal Medicine
DX: R78.81 Bacteremia (principal); N39.0 Urinary tract infection, site not specified; N17.9 Acute kidney failure, unspecified; B00.9 Herpesviral infection, unspecified; B00.50 Herpesviral ocular disease, unspecified; D68.61 Antiphospholipid syndrome
CPT/HCPCS: 96365

== ENCOUNTER 2022-10-15 11:40 | Day surgery (SDC) | payer OTHER ==
[2022-10-15] MEDS ORDERED: CEFTRIAXONE 2 GM in SODIUM CHLORIDE 100 ML IVPB SCH (12:00)
[2022-10-15 12:50] VITALS: BP 130/56; PULSE 72; RESP 18; TEMP 98.3
== END 2022-10-15 12:50 | disposition home or self-care (01) ==
LOC: FINFUSION 11:40 → FM/S 11:42 → FINFUSION 12:50
PROVIDERS: ATTEND Internal Medicine
DX: R78.81 Bacteremia (principal); N39.0 Urinary tract infection, site not specified; N17.9 Acute kidney failure, unspecified; B00.9 Herpesviral infection, unspecified; B00.50 Herpesviral ocular disease, unspecified; D68.61 Antiphospholipid syndrome
CPT/HCPCS: 96365

== ENCOUNTER 2022-10-16 11:14 | Day surgery (SDC) | payer OTHER ==
[2022-10-16] MEDS ORDERED: CEFTRIAXONE 2 GM in DEXTROSE 5%-WATER 100 ML IVPB ONE (12:00)
[2022-10-16 12:35] VITALS: BP 148/78; PULSE 73; RESP 18; TEMP 97.8
== END 2022-10-16 12:36 | disposition home or self-care (01) ==
LOC: FINFUSION 11:14 → FM/S 11:30 → FINFUSION 12:36
PROVIDERS: ATTEND Internal Medicine
DX: R78.81 Bacteremia (principal); N39.0 Urinary tract infection, site not specified; N17.9 Acute kidney failure, unspecified; B00.9 Herpesviral infection, unspecified; B00.50 Herpesviral ocular disease, unspecified; D68.61 Antiphospholipid syndrome
CPT/HCPCS: 96365

== ENCOUNTER 2022-10-17 11:52 | Day surgery (SDC) | payer OTHER ==
[2022-10-17] MEDS ORDERED: CEFTRIAXONE 2 GM in DEXTROSE 5%-WATER 100 ML IVPB ONE (13:00)
[2022-10-17 13:30] VITALS: BP 128/63; PULSE 74; RESP 18; TEMP 98.3
== END 2022-10-17 13:32 | disposition home or self-care (01) ==
LOC: FINFUSION 11:52 → FM/S 11:56 → FINFUSION 13:32
PROVIDERS: ATTEND Internal Medicine
DX: R78.81 Bacteremia (principal); N39.0 Urinary tract infection, site not specified; N17.9 Acute kidney failure, unspecified; B00.9 Herpesviral infection, unspecified; B00.50 Herpesviral ocular disease, unspecified; D68.61 Antiphospholipid syndrome
CPT/HCPCS: 96365

== ENCOUNTER 2022-10-18 11:25 | Day surgery (SDC) | payer OTHER ==
[2022-10-18] MEDS ORDERED: CEFTRIAXONE 2 GM in DEXTROSE 5%-WATER 100 ML IVPB ONE (11:45)
[2022-10-18 12:54] VITALS: BP 111/48; PULSE 70; RESP 18; TEMP 98.1
== END 2022-10-18 12:54 | disposition home or self-care (01) ==
LOC: FINFUSION 11:25 → FM/S 11:27 → FINFUSION 12:54
PROVIDERS: ATTEND Internal Medicine
DX: R78.81 Bacteremia (principal); N39.0 Urinary tract infection, site not specified; N17.9 Acute kidney failure, unspecified; B00.9 Herpesviral infection, unspecified; B00.50 Herpesviral ocular disease, unspecified; D68.61 Antiphospholipid syndrome
CPT/HCPCS: 96365

== ENCOUNTER 2022-10-19 11:15 | Day surgery (SDC) | payer OTHER ==
[2022-10-19] MEDS ORDERED: CEFTRIAXONE 2 GM in DEXTROSE 5%-WATER 100 ML IVPB ONE (11:45)
[2022-10-19 12:24] VITALS: BP 125/80; PULSE 72; RESP 18; TEMP 98
== END 2022-10-19 12:25 | disposition home or self-care (01) ==
LOC: FINFUSION 11:15 → FM/S 11:16 → FINFUSION 12:25
PROVIDERS: ATTEND Internal Medicine
DX: N39.0 Urinary tract infection, site not specified (principal); N17.9 Acute kidney failure, unspecified; B02.9 Zoster without complications; B00.50 Herpesviral ocular disease, unspecified; D68.61 Antiphospholipid syndrome
CPT/HCPCS: 96365

== ENCOUNTER 2022-10-20 10:48 | Day surgery (SDC) | payer OTHER ==
[2022-10-20] MEDS ORDERED: CEFTRIAXONE 2 GM in DEXTROSE 5%-WATER 100 ML IVPB ONE (11:00)
[2022-10-20 12:41] LABS: HEMATOCRIT 41.4 % (35.4-49); HEMOGLOBIN 13.3 G/dL (11.7-16.9); MCH 29.6 pg (25.7-33.7); MCHC 32.1 g/dl (32.0-35.9); MEAN CELL VOLUME 92.1 fl (80-96); MEAN PLT VOLUME 10.3 fl (7.5-11.1); PLATELET COUNT 231.4 10^3/uL (134-434); RBC 4.49 10^6/uL (4.00-5.60); RDW 19.6 % (11.9-15.9); WHITE BLOOD COUNT 6.4 10^3/uL (4.0-10.8)
[2022-10-20 12:52] LABS: BILIRUBIN,TOTAL 0.1 mg/dl (0.2-1); CALCIUM 9.6 mg/dl (8.5-10); POTASSIUM 4.9 mmol/L (3.5-5.1)
[2022-10-20 13:01] VITALS: BP 135/70; PULSE 65; RESP 18; TEMP 97.8
== END 2022-10-20 12:45 | disposition home or self-care (01) ==
LOC: FINFUSION 10:48 → FM/S 10:49 → FINFUSION 12:45
PROVIDERS: ATTEND Internal Medicine
DX: R78.81 Bacteremia (principal); N39.0 Urinary tract infection, site not specified; N17.9 Acute kidney failure, unspecified; B00.9 Herpesviral infection, unspecified; B00.50 Herpesviral ocular disease, unspecified; D68.61 Antiphospholipid syndrome
CPT/HCPCS: 36415; 80053; 85027; 96365

== ENCOUNTER 2022-10-21 11:23 | Day surgery (SDC) | payer OTHER ==
[2022-10-21 11:37] VITALS: PULSE 72; RESP 18; TEMP 98.2
[2022-10-21] MEDS ORDERED: CEFTRIAXONE 2 GM in DEXTROSE 5%-WATER 100 ML IVPB ONE (11:45)
[2022-10-21 12:29] VITALS: BP 112/78
== END 2022-10-21 12:29 | disposition home or self-care (01) ==
LOC: FINFUSION 11:23 → FM/S 11:25 → FINFUSION 12:29
PROVIDERS: ATTEND Internal Medicine
DX: R78.81 Bacteremia (principal); N39.0 Urinary tract infection, site not specified; N17.9 Acute kidney failure, unspecified; B00.9 Herpesviral infection, unspecified; B00.50 Herpesviral ocular disease, unspecified; D68.61 Antiphospholipid syndrome
CPT/HCPCS: 96365

== ENCOUNTER 2022-10-22 11:11 | Day surgery (SDC) | payer OTHER ==
[2022-10-22] MEDS ORDERED: CEFTRIAXONE 2 GM in SODIUM CHLORIDE 100 ML IVPB SCH (11:30)
[2022-10-22 11:36] VITALS: BP 114/58; PULSE 79; TEMP 98.7
[2022-10-22 12:04] VITALS: RESP 18
== END 2022-10-22 12:08 | disposition home or self-care (01) ==
LOC: FINFUSION 11:11 → FM/S 11:11 → FINFUSION 12:08
PROVIDERS: ATTEND Internal Medicine
DX: R78.81 Bacteremia (principal); N39.0 Urinary tract infection, site not specified; N17.9 Acute kidney failure, unspecified; B00.9 Herpesviral infection, unspecified; B00.50 Herpesviral ocular disease, unspecified; D68.61 Antiphospholipid syndrome
CPT/HCPCS: 96365

== ENCOUNTER 2022-10-23 12:00 | Day surgery (SDC) | payer OTHER ==
[2022-10-23] MEDS ORDERED: CEFTRIAXONE 2 GM in DEXTROSE 5%-WATER - 50 ML IVPB ONE (12:30)
[2022-10-23 12:38] VITALS: RESP 18; TEMP 98.2
[2022-10-23 13:08] VITALS: BP 137/70; PULSE 82
== END 2022-10-23 13:23 | disposition home or self-care (01) ==
LOC: FINFUSION 12:00 → FM/S 12:02 → FINFUSION 13:23
PROVIDERS: ATTEND Internal Medicine
DX: R78.81 Bacteremia (principal); N39.0 Urinary tract infection, site not specified; N17.9 Acute kidney failure, unspecified; B00.9 Herpesviral infection, unspecified; B00.50 Herpesviral ocular disease, unspecified; D68.61 Antiphospholipid syndrome
CPT/HCPCS: 96365; 96367